=== PATIENT | female | born 1945 | race Caucasian/White ===

== ENCOUNTER → 2016-12-02 | Day surgery (SDC) | payer MEDICARE, BC ==
[~2016-12-02] MED LIST: ACETAMINOPHEN 325 MG TAB ONE; DEXAMETHASONE SOD PHOS 4 MG/ML VIAL ONE; EPINEPHrine HCL (1:1000) 1 MG/ML VIAL ONE; LACTATED RINGER'S 1000 ML INJ 1,000 ML ONE; MIDAZOLAM HCL 2 MG/2 ML VIAL ONE; MOXIFLOXACIN 0.5% OPHT SOLN 3 ML BTL ONE; ONDANSETRON HCL 4 MG/2 ML VIAL IV PUSH ONE; PHENYLEPHRINE HCL 10% OPTH SOLN 5 ML BTL ONE; PROPOFOL 200 MG/20 ML AMP IV ONE; SODIUM CHLORIDE 0.9% INJ 10 ML ONE; TETRACAINE 0.5% OPTH SOLN 4 ML BTL ONE; TOBRAMYCIN/DEXAMETHASONE OPTH OINT 3.5 GM TUBE ONE; TRIAMCINOLONE ACETONIDE 40 MG/ML VIAL ONE; ceFAZolin INJ 1,000 MG VIAL ONE; prednisoLONE ACETATE 1% OPHT SUSP 5 ML BTL ONE
--- NOTE | 2016-12-05 13:30 | MP ---
cc: NORMAN SNYDER MD DATE OF SURGERY 12/04/2016 POSTOPERATIVE DIAGNOSIS Vitreous hemorrhage, proliferative diabetic retinopathy right eye. PROCEDURE Pars vitrectomy, endolaser, intravitreal Kenalog right eye. COMPLICATIONS None BLOOD LOSS Less than [address] Haskins, general INDICATIONS FOR PROCEDURE This is a delightful patient who developed a non-clearing vitreous hemorrhage with proliferative diabetic retinopathy in her right eye. The patient elected for surgical correction. PROCEDURE NOTE After informed consent was obtained, the patient brought to the operating room and general anesthesia was established. The right eye was prepped and draped in a sterile fashion with Betadine in the conjunctival fornix. A three port pars vitrectomy was established with self-retaining infusion cannula. The core vitreous was evacuated along with non-clearing vitreous hemorrhage. Endolaser was applied in PRP fashion. Scleral depressed examination revealed no retinal holes, tears or detachments. Intravitreal Kenalog was instilled. Trocars were removed and sclerotomies closed. Subconjunctival injection of Ancef and dexamethasone were given. The eye was patched with Tobramycin ointment. The patient was brought to recovery room in stable condition and continued followup with [facility] for her postoperative care. MD DARCY Manjarrez/KAVIN /5:56 PM /1:26 PM
== END | disposition home or self-care (01) ==
LOC: ESDC 08:00
PROVIDERS: ATTEND Ophthalmology
DX: H43.11 Vitreous hemorrhage, right eye (principal); E11.3591 Type 2 diabetes mellitus with proliferative diabetic retinopathy without macular edema, right eye; Z79.4 Long term (current) use of insulin
CPT/HCPCS: 00145; 67039; 82948; J0171; J0690; J1100; J2250; J2405; J3010; J3301; J7120

== ENCOUNTER 2018-07-20 13:08 | Inpatient (IN) ==
[2018-07-20] MEDS ORDERED: Pantoprazole Inj 80 MG in Sodium Chlor 0.9% Inj 100 ML IV.CONT SCH (14:00)
[2018-07-20 14:56] LABS: Baso # (Auto) 0.1 th/mm3 (0.0-0.2); Baso % (Auto) 2.6 % (0.0-2.0); Eos # (Auto) 0.1 th/mm3 (0.0-0.4); Eos % (Auto) 1.8 % (0.0-4.0); Lymph # (Auto) 1.1 th/mm3 (1.0-4.8); Lymph % (Auto) 22.4 % (9.0-44.0); Mean Corpuscular Hemoglobin 26.1 pg (27.0-34.0); Mean Corpuscular Volume 81.6 fL (80.0-100.0); Mean Platelet Volume 7.5 fL (7.0-11.0); Mono # (Auto) 0.6 th/mm3 (0.0-0.9); Neut % (Auto) 60.2 % (16.0-70.0); Platelet Count 270 th/mm3 (150-450); Red Blood Count 2.51 mil/mm3 (4.00-5.30); Red Cell Distribution Width 14.4 % (11.6-17.2)
[2018-07-20 15:02] LABS: Hematocrit 20.5 % (35.0-46.0); Hemoglobin 6.5 gm/dL (11.6-15.3)
[2018-07-20 15:16] LABS: Alanine Aminotransferase 88 U/L (10-53); Albumin 3.3 g/dL (3.4-5.0); Anion Gap 6 meq/L (5-15); Aspartate Aminotransferase 52 U/L (15-37); Blood Urea Nitrogen 34 mg/dL (7-18); Calcium 8.8 mg/dL (8.5-10.1); Carbon Dioxide 25.9 meq/L (21.0-32.0); Chloride 99 meq/L (98-107); Glomerular Filtration Rate 38 mL/min (>89); Glucose,Random 207 mg/dL (74-106); Magnesium 2.2 mg/dL (1.5-2.5); Potassium 4.9 meq/L (3.5-5.1); Sodium 131 meq/L (136-145)
[2018-07-20 15:17] LABS: Alkaline Phosphatase 217 U/L (45-117); Total Protein 7.3 g/dL (6.4-8.2)
[2018-07-20 15:18] LABS: Activated Partial Thrombo Time 32.1 sec (24.3-30.1); INR 1.1 Ratio; Prothrombin Time 11.6 sec (9.8-11.6)
--- NOTE | 2018-07-20 15:18 | ED ---
HPI General Chief complaint: GI Bleed Stated complaint: medical sent by doctor Time Seen by Provider: 07/20/18 13:44 Source: patient and family Mode of arrival: ambulatory Limitations: no limitations History of Present Illness HPI Narrative: Patient is a 73-year-old female presenting to the emergency department for evaluation of a GI bleed. Patient states that she is noticed dark, tarry like stools with occasional bright red blood for at least the last week. She reports fatigue, lightheadedness and shortness of breath even with rest. states that she has no activity tolerance. Patient was seen by Dr. Powers, oncologist today and was sent to the emergency room for evaluation of blood transfusion. Patient has no complaints of pain, she does state that it is slow to start her urine stream. She denies any burning. Patient states that Dr. Powers did test her stool in the office this morning and it was positive for blood. Patient is currently on Xarelto secondary to 2 TIAs as well as atrial fibrillation. Her past medical history is also significant for tongue cancer, type 2 diabetes, hypertension, hypothyroidism, A. fib, coronary artery disease. Last colonoscopy was in January 2018 and was negative. MD complaint: Reports melena and blood streaked stool Onset (ago): week(s) (1) Context: Reports anticoagulant use Associated symptoms: Reports malaise, shortness of breath, weakness and other ( lightheadedness) Treatments Prior to Arrival: Reports none Related Data Home Medications Medication Instructions Recorded Confirmed aspirin 81 mg PO DAILY 07/20/18 07/20/18 hydralazine 25 mg PO BID 07/20/18 07/20/18 insulin glargine [Lantus U-100 10 unit SUBCUT DAILY 07/20/18 07/20/18 Insulin] insulin lispro [Humalog U-100 1 sliding scale dose SUBCUT UD 07/20/18 07/20/18 Insulin] irbesartan 150 mg PO DAILY 07/20/18 07/20/18 levothyroxine 75 mcg PO DAILY 07/20/18 07/20/18 metoprolol tartrate 25 mg PO HS 07/20/18 07/20/18 rivaroxaban [Xarelto] 15 mg PO DAILY 07/20/18 07/20/18 timolol 1 drp OPHTHALMIC (EYE) BID 07/20/18 07/20/18 Allergies Allergy/AdvReac Type Severity Reaction Status Date / Time amlodipine Allergy Unknown Ankle Verified 07/20/18 14:15 swelling morphine Allergy Unknown Vomiting Verified 07/20/18 14:15 Sulfa (Sulfonamide Allergy Unknown Stomach Verified 07/20/18 14:15 Antibiotics) upset digoxin Allergy Bradycardia Verified 07/20/18 14:19 dronedarone [From Multaq] Allergy Weakness Verified 07/20/18 14:19 furosemide [From Lasix] Allergy Weakness Verified 07/20/18 14:19 Iodinated Contrast- Oral and Allergy Itching Verified 07/20/18 14:19 IV Dye [Contrast] levofloxacin Allergy Joint Pain Verified 07/20/18 14:19 ciprofloxacin [From Cipro] AdvReac Nausea Verified 07/20/18 14:19 Review of Systems ROS: all other systems reviewed are negative [facility] Medical History Medical History A-fib (Acute) Anemia (Acute) CAD (coronary artery disease) (Acute) Diabetes (Acute) Glaucoma (Acute) HTN (hypertension) (Acute) Hyponatremia (Acute) Hypothyroid (Acute) Renal failure (Acute) Restless leg syndrome (Acute) Squamous cell carcinoma of tongue (Acute) TIA (transient ischemic attack) (Acute) Surgical History Surgical History S/P ablation of atrial fibrillation (Acute) Social History Social History Substance History: No History of Abuse Second Hand Smoke Exposure: No Smoking Status: Former smoker How Often Do You Have a Drink Containing Alcohol: Never Recent Travel in [facility] within the Last 8 Weeks: No Recent Out of Country Travel within the Last 8 Weeks: No Immunization History Tetanus Immunization: <5 Years Exam Narrative Exam Narrative: GENERAL: Thin, well-developed, alert elderly female. Presenting in no acute distress. SKIN: Focused skin assessment warm/dry. Pale. HEAD: Atraumatic. Normocephalic. EYES: Pupils equal and round. No scleral icterus. No injection or drainage. Conjunctival pallor ENT: No nasal bleeding or discharge. Mucous membranes pink and moist. NECK: Trachea midline. No JVD. CARDIOVASCULAR: Regular rate and rhythm. 3/6 systolic murmur appreciated. RESPIRATORY: No accessory muscle use. Clear to auscultation. Breath sounds equal bilaterally. GASTROINTESTINAL: Abdomen soft, non-tender, nondistended. Hepatic and splenic margins not palpable. MUSCULOSKELETAL: No obvious deformities. No clubbing. No cyanosis. No edema. NEUROLOGICAL: Awake and alert. No obvious cranial nerve deficits. Motor grossly within normal limits. Normal speech. PSYCHIATRIC: Appropriate mood and affect; insight and judgment normal. Course Initial Documented Vital Signs Temperature 97.9 F 07/20/18 13:34 Pulse Rate 67 07/20/18 13:34 Respiratory Rate 13 07/20/18 13:34 Blood Pressure 202/79 H 07/20/18 13:34 Pulse Oximetry 100 07/20/18 13:34 Last Documented Vital Signs Temperature 97.9 F 07/20/18 13:34 Pulse Rate 64 07/20/18 13:57 Respiratory Rate 14 07/20/18 13:57 Blood Pressure 172/75 H 07/20/18 13:57 Pulse Oximetry 100 07/20/18 14:00 Medical Decision Making RONN Attestation RONN supervised visit: Yes Attestation: I, Dr. Begum, have reviewed the advance practice practitioner's documentation and am in agreement, met with the patient face to face, made the diagnosis, and the medical decision making was done by me. *My assessment and Findings: Patient is a 73-year-old female with symptomatic anemia. She does have a hemoglobin of 6.5. She requires admission to the hospital as well as blood transfusion which has been ordered. MDM Narrative Medical decision making narrative: Patient presented after being evaluated by Dr. Powers this morning in the office. Patient is hypertensive on arrival, she reports compliance with her blood pressure medication. She believes she has whitecoat syndrome. Medical records reviewed, plan of care is to hold Xarelto, patient will need IV iron and possible lower endoscopy per Dr. Powers's notes. On 07/15/18 her hemoglobin was 7.7/24. Patient was placed on compliance monitor , continuous pulse oximetry. IV access is established and patient's is at bedside. Patient was typed and crossmatched for 2 units of packed red blood cells. Discussed findings with Dr. Powers. He recommended consulting Cardiology to assess if patient can be taken off of Xarelto, she is currently followed by Dr. Klein. Additionally recommended GI consult for lower endoscopy. [facility] paged for admit. Pt reassessed and resting comfortably. Pt and advised on findings and plan of care. Dr. Lee accepted admit. Medical Screen Exam Complete: Yes Emergency Medical Condition: Yes Differential Diagnosis Differential Diagnosis: GI bleed versus anemia versus metabolic abnormality versus cardiac arrhythmia versus other Medical Records Medical records reviewed: Yes I reviewed the patient's medical records. Lab Data Lab results reviewed: Yes I reviewed the patient's lab results. Result diagrams: 07/20/18 14:20 07/20/18 14:20 Lab Results 07/20/18 07/20/18 07/20/18 Range/Units 14:20 14:20 14:20 WBC 5.0 (4.0-11.0) th/mm3 RBC 2.51 L (4.00-5.30) mil/mm3 Hgb 6.5 L* (11.6-15.3) gm/dL Hct 20.5 L* (35.0-46.0) % MCV 81.6 (80.0-100.0) fL MCH 26.1 L (27.0-34.0) pg MCHC 32.0 (32.0-36.0) % RDW 14.4 (11.6-17.2) % Plt Count 270 (150-450) th/mm3 MPV 7.5 (7.0-11.0) fL Prelim Diff (Auto) Slide review pending Neut % (Auto) 60.2 (16.0-70.0) % Lymph % (Auto) 22.4 (9.0-44.0) % [place] % (Auto) 13.0 H (0.0-8.0) % Eos % (Auto) 1.8 (0.0-4.0) % Baso % (Auto) 2.6 H (0.0-2.0) % Neut # (Auto) 3.0 (1.8-7.7) th/mm3 Lymph # (Auto) 1.1 (1.0-4.8) th/mm3 [place] # (Auto) 0.6 (0.0-0.9) th/mm3 Eos # (Auto) 0.1 (0.0-0.4) th/mm3 Baso # (Auto) 0.1 (0.0-0.2) th/mm3 WBC Differential . Diff Scan Auto diff confirmed Differential Comment . Platelet Estimate Normal (Normal) Platelet Morphology Normal (Normal) Ovalocytes 1+ H (None) Acanthocytes (Spur) 1+ H (None) Keratocytes Occ H (None) PT 11.6 (9.8-11.6) sec INR 1.1 Ratio APTT 32.1 H (24.3-30.1) sec Sodium 131 L (136-145) meq/L Potassium 4.9 (3.5-5.1) meq/L Chloride 99 (98-107) meq/L Carbon Dioxide 25.9 (21.0-32.0) meq/L Anion Gap 6 (5-15) meq/L BUN 34 H (7-18) mg/dL Creatinine 1.35 H (0.50-1.00) mg/dL Estimated GFR 38 L (>89) mL/min Random Glucose 207 H (74-106) mg/dL Calcium 8.8 (8.5-10.1) mg/dL Magnesium 2.2 (1.5-2.5) mg/dL Iron (50-170) mcg/dL TIBC (250-450) mcg/dL % Saturation (20-50) % Total Bilirubin 0.5 (0.2-1.0) mg/dL AST 52 H (15-37) U/L ALT 88 H (10-53) U/L Alkaline Phosphatase 217 H (45-117) U/L Total Protein 7.3 (6.4-8.2) g/dL Albumin 3.3 L (3.4-5.0) g/dL Urine Color (Yellw/Straw) Urine Clarity (Clear) Urine pH (5.0-8.5) Ur Specific [place] (1.002-1.035) Urine Protein (Neg-Trace) mg/dL Urine Glucose (UA) (Negative) mg/dL Urine Ketones (Negative) mg/dL Urine Occult Blood (Negative) Urine Nitrate (Negative) Urine Bilirubin (Negative) Urine Urobilinogen (Less than 2) mg/dL Ur Leukocyte Esterase (Negative) Urine RBC (0-3) /hpf Urine WBC (0-5) /hpf Ur Squamous Epith Cells (0-5) /hpf Urine Mucus (Occasional) /lpf Micro UA Comment Ur Microscopic Review Urine Culture Comments Blood Type Blood Type Recheck Antibody Screen MTS Gel Crossmatch 07/20/18 07/20/18 07/20/18 Range/Units 14:20 14:20 14:23 WBC (4.0-11.0) th/mm3 RBC (4.00-5.30) mil/mm3 Hgb (11.6-15.3) gm/dL Hct (35.0-46.0) % MCV (80.0-100.0) fL MCH (27.0-34.0) pg MCHC (32.0-36.0) % RDW (11.6-17.2) % Plt Count (150-450) th/mm3 MPV (7.0-11.0) fL Prelim Diff (Auto) Neut % (Auto) (16.0-70.0) % Lymph % (Auto) (9.0-44.0) % [place] % (Auto) (0.0-8.0) % Eos % (Auto) (0.0-4.0) % Baso % (Auto) (0.0-2.0) % Neut # (Auto) (1.8-7.7) th/mm3 Lymph # (Auto) (1.0-4.8) th/mm3 [place] # (Auto) (0.0-0.9) th/mm3 Eos # (Auto) (0.0-0.4) th/mm3 Baso # (Auto) (0.0-0.2) th/mm3 WBC Differential Diff Scan Differential Comment Platelet Estimate (Normal) Platelet Morphology (Normal) Ovalocytes (None) Acanthocytes (Spur) (None) Keratocytes (None) PT (9.8-11.6) sec INR Ratio APTT (24.3-30.1) sec Sodium (136-145) meq/L Potassium (3.5-5.1) meq/L Chloride (98-107) meq/L Carbon Dioxide (21.0-32.0) meq/L Anion Gap (5-15) meq/L BUN (7-18) mg/dL Creatinine (0.50-1.00) mg/dL Estimated GFR (>89) mL/min Random Glucose (74-106) mg/dL Calcium (8.5-10.1) mg/dL Magnesium (1.5-2.5) mg/dL Iron 16 L (50-170) mcg/dL TIBC 463 H (250-450) mcg/dL % Saturation 3.5 L (20-50) % Total Bilirubin (0.2-1.0) mg/dL AST (15-37) U/L ALT (10-53) U/L Alkaline Phosphatase (45-117) U/L Total Protein (6.4-8.2) g/dL Albumin (3.4-5.0) g/dL Urine Color Straw (Yellw/Straw) Urine Clarity Clear (Clear) Urine pH 5.0 (5.0-8.5) Ur Specific [place] 1.008 (1.002-1.035) Urine Protein Negative (Neg-Trace) mg/dL Urine Glucose (UA) Negative (Negative) mg/dL Urine Ketones Negative (Negative) mg/dL Urine Occult Blood Negative (Negative) Urine Nitrate Negative (Negative) Urine Bilirubin Negative (Negative) Urine Urobilinogen Less than 2 (Less than 2) mg/dL Ur Leukocyte Esterase Negative (Negative) Urine RBC 1 (0-3) /hpf Urine WBC Less than 1 (0-5) /hpf Ur Squamous Epith Cells <1 (0-5) /hpf Urine Mucus Few H (Occasional) /lpf Micro UA Comment Culture not ind Ur Microscopic Review Not Reportable Urine Culture Comments Culture not ind Blood Type B Positive Blood Type Recheck Required Antibody Screen Negative MTS Gel Crossmatch See Detail Discharge Plan Discharge Disposition Patient Disposition: 30 Still Patient Discharge Condition Condition: Stable Discharge Details Diagnosis: Acute GI bleeding, Anticoagulant long-term use, Symptomatic anemia Physicians Team ED Provider: Cary Begum ED Midlevel Provider: Gloria Perez Primary Care Provider: Esther Smith Rxs /Orders / Referrals /Forms Prescriptions: No Action insulin glargine [Lantus U-100 Insulin] 100 unit/mL Solution 10 unit SUBCUT DAILY RF: 0 hydralazine 25 mg Tablet 25 mg PO BID RF: 0 timolol 0.25 % Drops 1 drp OPHTHALMIC (EYE) BID RF: 0 aspirin 81 mg Tablet,Chewable 81 mg PO DAILY RF: 0 irbesartan 150 mg Tablet 150 mg PO DAILY RF: 0 insulin lispro [Humalog U-100 Insulin] 100 unit/mL Solution 1 sliding scale dose SUBCUT UD RF: 0 metoprolol tartrate 25 mg Tablet 25 mg PO HS RF: 0 levothyroxine 75 mcg Capsule 75 mcg PO DAILY RF: 0 rivaroxaban [Xarelto] 15 mg Tablet 15 mg PO DAILY RF: 0 Status ED Status: Admitted Patient
[2018-07-20 15:20] LABS: Bilirubin,Urine Negative (Negative); Clarity,Urine Clear (Clear); Color,Urine Straw (Yellw/Straw); Glucose,Urine (UA) Negative (Negative); Leukocyte Esterase,Urine Negative (Negative); Mucus,Urine Few /lpf (Occasional); Nitrite,Urine Negative (Negative); Specific Gravity,Urine 1.008 (1.002-1.035); Squamous Epithelial Cell,Urine <1 /hpf (0-5)
[2018-07-20 15:29] LABS: Acanthocytes 1+; Ovalocytes 1+; Platelet Estimate Normal (Normal); Platelet Morphology Normal (Normal)
[2018-07-20 15:48] LABS: % Iron Saturation 3.5 % (20-50)
--- NOTE | 2018-07-20 17:02 | P.HPIM ---
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 She presents to our emergency department today with complaints of fatigue and black tarry stools that have been ongoing for the past 1 week. The patient was seen by her oncologist Dr. Powers and sent to our emergency department for evaluation due to her black stools. As per documentation the patient had a colonoscopy in January 2018 which did not show any significant findings. She denies any fevers or chills, no chest pain, no diarrhea. Inpatient Certification: I certify that the inpatient services were ordered in accordance with Medicare regulations governing the order. This includes certification that hospital inpatient services are reasonable and necessary and in the case of services not specified as inpatient-only under 42 CFR 419.22(n), that they are appropriately provided as inpatient services in accordance to with the 2-midnight benchmark under 43 CFR 412.3(e) Estimated Total Length of Stay (Days): 3 Plans for Post Hospital Care: Home Review of Systems All other systems reviewed negative except as stated in HPI PMFSH - History History Provided By: Patient - Medical History Medical History: Medical History (Last Reviewed 07/20/18 @ 15:15 by GÓMEZ Sharma) A-fib Anemia CAD (coronary artery disease) Diabetes Glaucoma HTN (hypertension) Hyponatremia Hypothyroid Renal failure Restless leg syndrome Squamous cell carcinoma of tongue TIA (transient ischemic attack) - Surgical History Surgical History: Surgical History (Last Reviewed 07/20/18 @ 15:15 by GÓMEZ Sharma) S/P ablation of atrial fibrillation - Tobacco History Second Hand Smoke Exposure: No Tobacco Use In Past 30 Days: No Smoking Status: Former smoker - Alcohol History How Often Do You Have a Drink Containing Alcohol: Never - Substance Use History Substance History: No History of Abuse - Travel History Recent Travel in the [place] Within the Last 8 Weeks: No Recent Travel Out of the Country Within the Last 8 Weeks: No - Immunization History Tetanus Immunization: <5 Years Medications and Allergies Active Medications: Active Medications Pantoprazole Sodium 80 mg/ (Sodium Chloride) 100 mls @ 10 mls/hr IV.CONT CONT MARCIA Sodium Chloride (Ns Inj) 1,000 mls @ 125 mls/hr IV.CONT .Q8H MARCIA Ondansetron HCl (Zofran Inj) 4 mg IV.PUSH Q6H PRN PRN Reason: NAUSEA OR VOMITING Pantoprazole Sodium (Protonix Inj) 80 mg IV.PUSH ONCE ONE Stop: 07/20/18 16:49 Sodium Chloride (Ns Flush) 2 ml IV.FLUSH PRN PRN PRN Reason: FLUSH AFTER USING IV ACCESS Sodium Chloride (Ns Flush) 2 ml IV.FLUSH BID MARCIA Sodium Chloride (Ns Flush) 2 ml IV.FLUSH PRN PRN PRN Reason: FLUSH AFTER USING IV ACCESS Allergies Allergy/AdvReac Type Severity Reaction Status Date / Time amlodipine Allergy Unknown Ankle Verified 07/20/18 14:15 swelling morphine Allergy Unknown Vomiting Verified 07/20/18 14:15 Sulfa (Sulfonamide Allergy Unknown Stomach Verified 07/20/18 14:15 Antibiotics) upset digoxin Allergy Bradycardia Verified 07/20/18 14:19 dronedarone [From Multaq] Allergy Weakness Verified 07/20/18 14:19 furosemide [From Lasix] Allergy Weakness Verified 07/20/18 14:19 Iodinated Contrast- Oral and Allergy Itching Verified 07/20/18 14:19 IV Dye [Contrast] levofloxacin Allergy Joint Pain Verified 07/20/18 14:19 ciprofloxacin [From Cipro] AdvReac Nausea Verified 07/20/18 14:19 Home Medications Medication Instructions Recorded Confirmed Type aspirin 81 mg PO DAILY 07/20/18 07/20/18 History hydralazine 25 mg PO BID 07/20/18 07/20/18 History insulin glargine [Lantus U-100 10 unit SUBCUT DAILY 07/20/18 07/20/18 History Insulin] insulin lispro [Humalog U-100 1 sliding scale dose SUBCUT UD 07/20/18 07/20/18 History Insulin] irbesartan 150 mg PO DAILY 07/20/18 07/20/18 History levothyroxine 75 mcg PO DAILY 07/20/18 07/20/18 History metoprolol tartrate 25 mg PO HS 07/20/18 07/20/18 History rivaroxaban [Xarelto] 15 mg PO DAILY 07/20/18 07/20/18 History timolol 1 drp OPHTHALMIC (EYE) BID 07/20/18 07/20/18 History Exam Vital signs: Vital Signs 07/20/18 13:34 07/20/18 13:57 07/20/18 14:00 Temperature 97.9 F Pulse Rate 67 64 Respiratory Rate 13 14 Blood Pressure 202/79 H 172/75 H Pulse Oximetry 100 100 100 Intake & Output 07/19/18 07/20/18 07/20/18 18:59 06:59 18:59 Weight 57.606 kg Narrative: General patient appears pale on physical examination, she complains of fatigue otherwise no other specific complaints. HEENT extraocular movements are intact, dry oral pharyngeal mucosa Cardiovascular S1-S2 audible, RRR, no murmurs rubs or gallops Respiratory clear to auscultation bilaterally Abdomen soft, nontender, nondistended, normal bowel sounds Extremities no edema 2+ distal pulses in bilateral upper and lower extremities Neuro patient moves all 4 extremities sensation is intact bilaterally Results - Labs CBC & Chem 7: 07/20/18 14:20 07/20/18 14:20 Labs: Short CBC 07/20/18 Range/Units 14:20 WBC 5.0 (4.0-11.0) th/mm3 Hgb 6.5 L* (11.6-15.3) gm/dL Hct 20.5 L* (35.0-46.0) % Plt Count 270 (150-450) th/mm3 BMP 07/20/18 14:20 Sodium 131 L Potassium 4.9 Chloride 99 Carbon Dioxide 25.9 BUN 34 H Creatinine 1.35 H Calcium 8.8 Liver Function 07/20/18 Range/Units 14:20 Total Bilirubin 0.5 (0.2-1.0) mg/dL AST 52 H (15-37) U/L ALT 88 H (10-53) U/L Alkaline Phosphatase 217 H (45-117) U/L Albumin 3.3 L (3.4-5.0) g/dL Urine 07/20/18 Range/Units 14:23 Urine Color Straw (Yellw/Straw) Urine Clarity Clear (Clear) Urine pH 5.0 (5.0-8.5) Ur Specific [place] 1.008 (1.002-1.035) Urine Protein Negative (Neg-Trace) mg/dL Urine Glucose (UA) Negative (Negative) mg/dL Caprini VTE Risk Assessment Caprini VTE Risk Assessment: Moderate/High Risk (score >= 2) Caprini Risk Assessment Model: Point Value = 1 Point Value = 2 Point Value = 3 Point Value = 5 Age 41-60 Minor surgery BMI > 25 kg/m2 Swollen legs Varicose veins or History of unexplained or recurrent spontaneous Oral contraceptives or hormone replacement Sepsis (< 1 month) Serious lung disease, including pneumonia (< 1 month) Abnormal pulmonary function Acute myocardial infarction Congestive heart failure (< 1 month) History of inflammatory bowel disease Medical patient at bed rest Age 61-74 Arthroscopic surgery Major open surgery (> 45 min) Laparoscopic surgery (> 45 min) Malignancy Confined to bed (> 72 hours) Immobilizing plaster cast Central venous access Age >= 75 History of VTE Family history of VTE Factor V Leiden Prothrombin [id number] Lupus anticoagulant Anticardiolipin antibodies Elevated serum homocysteine Heparin-induced thrombocytopenia Other congenital or acquired thrombophilia Stroke (< 1 month) Elective arthroplasty Hip, pelvis, or leg fracture Acute spinal cord injury (< 1 month) Prophylaxis Regimen: Total Risk Factor Score Risk Level Prophylaxis Regimen 0-1 Low Early ambulation 2 Moderate Order ONE of the following: *Sequential Compression Device (SCD) *Heparin 5000 units SQ BID 3-4 Higher Order ONE of the following medications: *Heparin 5000 units SQ TID *Enoxaparin/Lovenox 40 mg SQ daily (WT < 150 kg, CrCl > 30 mL/min) *Enoxaparin/Lovenox 30 mg SQ daily (WT < 150 kg, CrCl > 10-29 mL/min) *Enoxaparin/Lovenox 30 mg SQ BID (WT < 150 kg, CrCl > 30 mL/min) AND/OR *Sequential Compression Device (SCD) 5 or more Highest Order ONE of the following medications: *Heparin 5000 units SQ TID (Preferred with Epidurals) *Enoxaparin/Lovenox 40 mg SQ daily (WT < 150 kg, CrCl > 30 mL/min) *Enoxaparin/Lovenox 30 mg SQ daily (WT < 150 kg, CrCl > 10-29 mL/min) *Enoxaparin/Lovenox 30 mg SQ BID (WT < 150 kg, CrCl > 30 mL/min) AND *Sequential Compression Device (SCD) Assessment and Plan - Plan This patient is a 73-year-old female with a diagnosis of atrial fibrillation on Xarelto, status post ablation x2, coronary artery disease status post stent placement, history of TIA, 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 She presents to our emergency department today with complaints of fatigue and black tarry stools that have been ongoing for the past 1 week. 1. Acute symptomatically anemia likely secondary to acute GI bleed 2. Acute kidney injury secondary to #1 The patient complains of black stools with streaks of red blood that have been ongoing for the past week. She was feeling fatigued and appears pale on physical examination. Patient has been typed and crossed and 2 units of PRBCs were ordered as per the emergency department. We will continue to monitor her hemoglobin closely and transfuse as needed. She is currently on a Protonix drip and IV fluids. Gastroenterology has been consulted and I will follow up with recommendations. Xarelto has been held due to the active GI bleed. The patient's heart rate is currently in the 70s and systolic blood pressures in the 150s. We will continue to monitor the patient on telemetry. Patient also has an elevated serum creatinine likely prerenal secondary to the GI bleed. We will continue IV fluids and follow-up in a.m. renal panel. 3. Atrial fibrillation Patient has a history of TIA and is status post ablation x2. She takes metoprolol at home as well as Xarelto. Xarelto and aspirin has been held due to the active GI bleed. Metoprolol will also be held as the patient is actively bleeding. If the patient's heart rate does increase significantly in the patient's blood pressure stable will consider starting back a beta-glendy. It appears that the patient is currently in normal sinus rhythm. 4. Diabetes mellitus type 2 The patient will be kept on a low-dose insulin sliding scale for now as she is currently n.p.o. Her insulin regimen will be adjusted as needed. 5. Hypothyroidism Continue levothyroxine. 6. Hypertension The patient's blood pressures will be held as she is currently having an active GI bleed. If there is significant elevation in her blood pressure we will adjust her blood pressure meds as needed. No pharmacotherapy for DVT prophylaxis the patient is currently having an active GI bleed.
[2018-07-20 17:35] LABS: Hematocrit 17.4 % (35.0-46.0); Hemoglobin 5.8 gm/dL (11.6-15.3)
[2018-07-20] MEDS ORDERED: Pantoprazole Inj 40 MG Vial IV.PUSH ONE (18:00)
[2018-07-20] MEDS: Sod Chloride 0.9% Inj 1,000 ML IV.CONT SCH (18:38)
[2018-07-21] MEDS ORDERED: Sodium Chlor 0.9% Inj 500 ML IV.SIG SCH (04:00)
[2018-07-21] MEDS: Levothyroxine 75 MCG Tablet PO SCH (06:28)
[2018-07-21 08:32] LABS: Hematocrit 26.7 % (35.0-46.0); Hemoglobin 8.7 gm/dL (11.6-15.3)
[2018-07-21 09:06] LABS: Calcium 8.6 mg/dL (8.5-10.1); Carbon Dioxide 22.5 meq/L (21.0-32.0); Potassium 4.3 meq/L (3.5-5.1)
[2018-07-21] MEDS: Sod Chloride 0.9% Inj 1,000 ML IV.CONT SCH ×3 (09:09→18:45)
--- NOTE | 2018-07-21 09:36 | MB ---
cc: Kevon Powers MD DATE: 07/21/2018 REASON FOR CONSULTATION: History of iron deficiency anemia with acute gastrointestinal bleeding. PATIENT PROFILE: The patient is a 73-year-old female who is . She was born in [place], [place]. She has a son and daughter. She has lived in [place] for 7 years. She has had no alcohol since 02/2018; and, prior to this, she had 2 or 3 drinks a day or less. She stopped smoking 45 years ago and smoked a pack of cigarettes per day for 8 years. She enjoys shopping, walking, and spending time with her grandchildren. HISTORY OF PRESENT ILLNESS: The patient is a 73-year-old female who was referred to me because of iron deficiency anemia. At the time of the visit, she had multiple comorbidities. I originally saw her on 07/08/2018. 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 The procedure was accompanied by a tracheotomy and she required NG tube feedings and a 25-pound weight loss. She has had no evidence of local reoccurrence and she was told that she had a 50% chance of developing recurrent disease. Radiation was recommended, but she declined. Other comorbidities include a cardiac ablation for atrial fibrillation on 2 occasions. She has coronary stent. She has diabetes and mild renal failure. At one point, she had abnormal liver function tests and also had transient hyponatremia with a sodium as low as 119. When seen in the office initially, she had a stool which was heme test negative. She had a history of a colonoscopy by Dr. Kang this year. She had an upper endoscopy approximately 9 years ago. At the time of her visit dated 07/08/2018, iron studies were ordered as well as a CBC and a CMP. The patient was found on 07/15/2018 to have a hemoglobin of 7.7, hematocrit 24, white count 4000, iron 21, TIBC 395, and saturation 5% with a ferritin of 13. A serum protein electrophoresis showed no monoclonal spike. She returned yesterday to see me in the clinic. She was weak, dizzy, did not feel well, and appeared sallow. She was having stools, which ranged from dark brown to black to frankly maroon color. When I did a rectal exam, the stool was maroon and markedly heme positive indicative of an acute GI bleed. I referred her to the emergency room and she has been admitted to the hospital. The original plan was to give her IV iron as an outpatient. When seen in the office, it was obvious that she required hospitalization. On the day of admission, 07/20/2018, her hemoglobin dropped to 5.8, hematocrit 17.4, white count 5000, platelets 270,000 with a normal differential. CMP showed a mild degree of renal failure with a creatinine of 1.35, BUN 34, and estimated GFR of 38. Glucose was elevated at 336, iron 16, TIBC 463, saturation 3.5%. AST 52, ALT 88, and alkaline phosphatase is 217. PAST MEDICAL AND SURGICAL HISTORY: 1. Cardiac ablation x2 by Dr. Klein for atrial fibrillation, most recent 2013. 2. Coronary stent 2004, surgery performed in [place]. The patient states that there was a 40% blockage and placement of the stent was controversial. 3. Repair of retinal hemorrhage, right eye, 2016. 4. Surgical excision of squamous cell carcinoma lateral right tongue, 02/11/2018, performed by Dr. Gerardo Holloway at [facility]. Postop radiation recommended and patient declined. PAST MEDICAL HISTORY: 1. Recent diagnosis of iron deficiency anemia. 2. Atrial fibrillation. 3. Mild coronary artery disease. 4. Hypotension. 5. Episode of hyponatremia with a sodium of 119 in 06/2016 following episode of nausea and vomiting secondary to Levaquin. 6. Renal failure. 7. Restless legs syndrome. 8. Squamous cell carcinoma, right lateral tongue. 9. Previous history of 2 TIAs, last one 2015. 10. Type 2 diabetes. FAMILY HISTORY: Mother at age 96. Father at age 56. She has 4 brothers, 1 alive, 3 . Two sisters, 2 alive, and a son who is alive and a daughter who is alive. No family history relevant to current problems. ALLERGIES: LEVAQUIN RESULTED IN NAUSEA, VOMITING, AND DIARRHEA. THERE IS ALSO ALLERGY TO MULTAQ. MEDICATIONS PRIOR TO ADMISSION: 1. Xarelto 15 mg a day. 2. Atenolol. 3. Metoprolol 25 mg a day. 4. Levothyroxine 75 mcg a day. 5. Lantus 10 units at bedtime. 6. Valsartan 150 mg a day. 7. Hydralazine 25 b.i.d. 8. Humalog. 9. Aspirin 81 mg a day. REVIEW OF SYSTEMS: CONSTITUTIONAL: Notable for 25-pound weight loss following surgery to right lateral tongue. No further weight loss. No headaches. No neck pain. She has glasses. Oral cavity not normal. Tongue feels odd from her surgery. No bruising. No breast masses. Recent shortness of breath without chest pain. Current gastrointestinal hemorrhage. No dysuria or hematuria. MUSCULOSKELETAL: She has a ruptured biceps tendon, possibly related to previous Levaquin. She has a graft, left wrist, and skin removed from left thigh. Generalized weakness. Has difficulty sleeping with restless leg syndrome. PHYSICAL EXAMINATION: GENERAL: Patient is pale, not in any acute distress. VITAL SIGNS: Blood pressure 160/70, respiratory rate is 18, temperature 98.2, O2 saturation 92%, and pulse 80. HEENT: Head is normocephalic. Sclerae and conjunctivae normal. Oropharynx: There is evidence of surgery, right lateral tongue with a graft. NECK: There is no cervical, supraclavicular, axillary, or inguinal adenopathy. HEART: Regular rate and rhythm. LUNGS: Clear, without rales, wheezes, or rhonchi. ABDOMEN: Soft. No hepatosplenomegaly. No masses or tenderness. EXTREMITIES: No edema. MUSCULOSKELETAL: Some muscle wasting. NEUROLOGIC: No focal weakness. Cognition and affect normal. SKIN: Unremarkable. ASSESSMENT AND PLAN: 1. The patient is a 73-year-old female. She is having a gastrointestinal bleed. She has underlying iron deficiency as well. I recommend transfusing her to at least a hemoglobin of 9. This is a frail woman who has had recurrent atrial fibrillation. I will also make arrangements for IV iron as her iron stores are not adequate. Her anticoagulation needs to be held presently and I would also suggest that her gyn be consulted to determine what will be the minimal anticoagulation that she will require when she has recovered from the current event. GI has been consulted as well and she is scheduled for upper endoscopy. She may need repeat colonoscopy. 2. The patient has a carcinoma of the right lateral tongue. She has no evidence of recurrence and presently she will undergo observation. 3. Chronic renal failure. 4. Uncontrolled diabetes. 5. I am not sure what to make of the elevated alkaline phosphatase, ALT, and AST. This may require further investigation. It is my understanding that she had a PET scan prior to her surgery for her head and neck cancer. I will need to make sure this was in fact accomplished. If this was done within the past 6 months, it would be highly unlikely that she harbors a malignancy given a normal PET scan, a recent colonoscopy, and it is my understanding that she is scheduled for upper endoscopy. For the present time, I believe the goals will be to increase the hemoglobin to 9 or greater and give her IV iron and proceed with the GI workup and hold the anticoagulation. MD MINA Jones/mary , 08:12 AM , 08:31 AM [email or web address]
--- NOTE | 2018-07-21 11:58 | P.CONGI ---
History of Present Illness Consult date: 07/21/18 Consult reason: GI bleed Chief complaint: GI Bleed History of Present Illness: This is a 73-year-old female who presented to the hospital on 07/20/2018 with weakness and fatigue for approximately a week and a half and melena stools for approximately 1 week. Patient notes she does have a history of constipation and does admit to some straining but does not take any usual medications for any bowel regimen. Aggregating factors could be related to p.o. iron supplements. Patient states appetite is good and she denies any current nausea vomiting or dyspepsia. 24 hours ago patient did have fairly large bowel movement which was noted to be more maroon in color but denies any current abdominal pain or cramping. Patient denies any family history of colon cancer and states endoscopy done approximately 9 years ago. Patient notes recent colonoscopy with Dr. Kang in January 2018 which showed large polyp. Current labs show initial hemoglobin on admission 6.5 and then repeated to be 5.8 patient had transfusion. Other labs reviewed was PT/INR 1.1, bilirubin 0.5, AST 52, ALT 88, and alkaline phosphatase 217. Patient has been on Xarelto since 2013 for her atrial fibrillation and denies any previous history of any GI bleeding. Patient notes recent hospital stay at [facility] , was evaluated and found UTI and was also treated for hyponatremia. Gastroenterology was consulted to assist with her current GI symptoms with melena stools and symptomatic anemia as well as develop per plan of care. <Tracie Carmona - Last Filed: 07/21/18 12:04> Review of Systems All other systems reviewed negative except as stated in HPI <Tracie Carmona - Last Filed: 07/21/18 12:04> PMFSH - History History Provided By: Patient - Medical History Medical History: Medical History (Last Reviewed 07/20/18 @ 15:15 by GÓMEZ Sharma) A-fib Anemia CAD (coronary artery disease) Diabetes Glaucoma HTN (hypertension) Hyponatremia Hypothyroid Renal failure Restless leg syndrome Squamous cell carcinoma of tongue TIA (transient ischemic attack) - Surgical History Surgical History: Surgical History (Last Reviewed 07/20/18 @ 15:15 by GÓMEZ Sharma) S/P ablation of atrial fibrillation - Tobacco History Second Hand Smoke Exposure: No Tobacco Use In Past 30 Days: No Smoking Status: Former smoker - Alcohol History How Often Do You Have a Drink Containing Alcohol: Never - Substance Use History Substance History: No History of Abuse - Travel History Recent Travel in the [place] Within the Last 8 Weeks: No Recent Travel Out of the Country Within the Last 8 Weeks: No - Immunization History Tetanus Immunization: <5 Years <Tracie Carmona - Last Filed: 07/21/18 12:04> - Medical History Medical History: Medical History (Last Reviewed 07/20/18 @ 15:15 by GÓMEZ Sharma) A-fib Anemia CAD (coronary artery disease) Diabetes Glaucoma HTN (hypertension) Hyponatremia Hypothyroid Renal failure Restless leg syndrome Squamous cell carcinoma of tongue TIA (transient ischemic attack) - Surgical History Surgical History: Surgical History (Last Reviewed 07/20/18 @ 15:15 by GÓMEZ Sharma) S/P ablation of atrial fibrillation <Olivia Diamond - Last Filed: 07/21/18 20:45> Medications and Allergies Active Medications: Active Medications Dextrose (D50w Vial) 50 ml IV.PUSH UNSCH PRN PRN Reason: PER HYPOGLYCEMIA PROTOCOL Glucagon (Glucagon Inj) 1 mg OTHER PRN PRN PRN Reason: for Hypoglycemia Protocol Pantoprazole Sodium 80 mg/ (Sodium Chloride) 100 mls @ 10 mls/hr IV.CONT CONT MARCIA Sodium Chloride (Ns Inj) 1,000 mls @ 125 mls/hr IV.CONT .Q8H MARCIA Last Admin: 07/21/18 10:56 Dose: 125 mls/hr Lactated Ringer's (Lr 1000 Ml Inj) 1,000 mls @ 30 mls/hr IV.SIG .Q24H MARCIA Stop: 07/22/18 03:14 Sodium Chloride (Ns Inj) 500 mls @ 30 mls/hr IV.SIG .Q10H MARCIA Insulin Aspart (Novolog Insulin Correctional Sugar Inj) 0 unit SQ ACHS MARCIA; Protocol Insulin Aspart (Novolog Inj) 3 units SQ TIDAC MARCIA Insulin Detemir (Levemir Inj) 10 unit SQ HS MARCIA Levothyroxine Sodium (Synthroid) 75 mcg PO DAILY@0600 [facility] Last Admin: 07/21/18 06:28 Dose: 75 mcg Ondansetron HCl (Zofran Inj) 4 mg IV.PUSH Q6H PRN PRN Reason: NAUSEA OR VOMITING Sodium Chloride (Ns Flush) 2 ml IV.FLUSH PRN PRN PRN Reason: FLUSH AFTER USING IV ACCESS Sodium Chloride (Ns Flush) 2 ml IV.FLUSH BID [facility] Last Admin: 07/21/18 10:55 Dose: Not Given Sodium Chloride (Ns Flush) 2 ml IV.FLUSH PRN PRN PRN Reason: FLUSH AFTER USING IV ACCESS <Tracie Carmona M - Last Filed: 07/21/18 12:04> Active Medications: Active Medications Dextrose (D50w Vial) 50 ml IV.PUSH UNSCH PRN PRN Reason: PER HYPOGLYCEMIA PROTOCOL Glucagon (Glucagon Inj) 1 mg OTHER PRN PRN PRN Reason: for Hypoglycemia Protocol Pantoprazole Sodium 80 mg/ (Sodium Chloride) 100 mls @ 10 mls/hr IV.CONT CONT MARCIA Sodium Chloride (Ns Inj) 1,000 mls @ 125 mls/hr IV.CONT .Q8H [facility] Last Admin: 07/21/18 18:45 Dose: 125 mls/hr Lactated Ringer's (Lr 1000 Ml Inj) 1,000 mls @ 30 mls/hr IV.SIG .Q24H MARCIA Stop: 07/22/18 03:14 Sodium Chloride (Ns Inj) 500 mls @ 30 mls/hr IV.SIG .Q10H [facility] Iron Sucrose 200 mg/ Sodium (Chloride) 110 mls @ 110 mls/hr IV.SIG DAILY MARCIA Stop: 07/24/18 09:59 Diltiazem HCl 125 mg/ Sodium (Chloride) 125 mls @ 5 mls/hr IV.CONT TITRATE PRN ; Protocol PRN Reason: Per Protocol Last Admin: 07/21/18 17:54 Dose: 5 mg/hr, 5 mls/hr Insulin Aspart (Novolog Insulin Correctional Sugar Inj) 0 unit SQ ACHS [facility]; Protocol Last Admin: 07/21/18 19:09 Dose: 5 unit Insulin Aspart (Novolog Inj) 3 units SQ TIDAC [facility] Last Admin: 07/21/18 19:09 Dose: 3 units Insulin Detemir (Levemir Inj) 10 unit SQ HS [facility] Levothyroxine Sodium (Synthroid) 75 mcg PO DAILY@0600 [facility] Last Admin: 07/21/18 06:28 Dose: 75 mcg Metoprolol Tartrate (Lopressor) 25 mg PO TID [facility] Last Admin: 07/21/18 13:06 Dose: 25 mg Metoprolol Tartrate (Lopressor Inj) 5 mg IV.PUSH Q5M PRN PRN Reason: Afib Last Admin: 07/21/18 16:53 Dose: 5 mg Ondansetron HCl (Zofran Inj) 4 mg IV.PUSH Q6H PRN PRN Reason: NAUSEA OR VOMITING Sodium Chloride (Ns Flush) 2 ml IV.FLUSH BID [facility] Last Admin: 07/21/18 10:55 Dose: Not Given Sodium Chloride (Ns Flush) 2 ml IV.FLUSH PRN PRN PRN Reason: FLUSH AFTER USING IV ACCESS <Olivia Diamond - Last Filed: 07/21/18 20:45> Allergies Allergy/AdvReac Type Severity Reaction Status Date / Time amlodipine Allergy Unknown Ankle Verified 07/20/18 14:15 swelling morphine Allergy Unknown Vomiting Verified 07/20/18 14:15 Sulfa (Sulfonamide Allergy Unknown Stomach Verified 07/20/18 14:15 Antibiotics) upset digoxin Allergy Bradycardia Verified 07/20/18 14:19 dronedarone [From Multaq] Allergy Weakness Verified 07/20/18 14:19 furosemide [From Lasix] Allergy Weakness Verified 07/20/18 14:19 Iodinated Contrast- Oral and Allergy Itching Verified 07/20/18 14:19 IV Dye [Contrast] levofloxacin Allergy Joint Pain Verified 07/20/18 14:19 ciprofloxacin [From Cipro] AdvReac Nausea Verified 07/20/18 14:19 Home Medications Medication Instructions Recorded Confirmed Type aspirin 81 mg PO DAILY 07/20/18 07/20/18 History hydralazine 25 mg PO BID 07/20/18 07/20/18 History insulin glargine [Lantus U-100 10 unit SUBCUT DAILY 07/20/18 07/20/18 History Insulin] insulin lispro [Humalog U-100 1 sliding scale dose SUBCUT UD 07/20/18 07/20/18 History Insulin] irbesartan 150 mg PO DAILY 07/20/18 07/20/18 History levothyroxine 75 mcg PO DAILY 07/20/18 07/20/18 History metoprolol tartrate 25 mg PO HS 07/20/18 07/20/18 History rivaroxaban [Xarelto] 15 mg PO DAILY 07/20/18 07/20/18 History timolol 1 drp OPHTHALMIC (EYE) BID 07/20/18 07/20/18 History Exam Vital signs: Vital Signs 07/20/18 13:34 07/20/18 13:57 07/20/18 14:00 Temperature 97.9 F Pulse Rate 67 64 Respiratory Rate 13 14 Blood Pressure 202/79 H 172/75 H Pulse Oximetry 100 100 100 07/20/18 18:50 07/20/18 19:10 07/20/18 20:00 Temperature 98.0 F 97.6 F 97.6 F Pulse Rate 68 70 70 Respiratory Rate 20 20 20 Blood Pressure 188/77 H 163/67 H 163/67 H Pulse Oximetry 99 98 07/20/18 21:45 07/20/18 22:00 07/20/18 23:26 Temperature 98.5 F 97.5 F L 98.5 F Pulse Rate 67 65 67 Respiratory Rate 18 18 18 Blood Pressure 174/73 H 169/71 H 174/73 H Pulse Oximetry 96 95 96 07/21/18 00:00 07/21/18 01:25 07/21/18 04:00 Temperature 97.9 F 98.1 F 98.2 F Pulse Rate 66 65 69 Respiratory Rate 18 18 19 Blood Pressure 188/78 H 160/75 H 166/74 H Pulse Oximetry 96 93 L 92 L 07/21/18 07:59 07/21/18 08:00 07/21/18 09:00 Temperature 98.0 F Pulse Rate 66 82 Respiratory Rate 17 Blood Pressure 172/74 H Pulse Oximetry 96 91 L Intake & Output 07/20/18 07/21/18 07/21/18 18:59 06:59 18:59 Intake Total 0 / 0 1800 / 1800 1000 / 1000 Balance 0 / 0 1800 / 1800 1000 / 1000 Weight 57.606 kg 58.2 kg Intake: IV 1000 / 1000 1000 / 1000 NS Inj 1,000 ML @ 125 mls/hr IV 1000 / 1000 1000 / 1000 .CONT .Q8H [facility] Rx#:[id number] Oral 0 / 0 Intake (Blood Product) Amt 0 / 0 800 / 800 Rbc As-3 Leukoreduced Unit 0 / 0 400 / 400 [id number] Rbc As-3 Leukoreduced Unit 400 / 400 [id number] Other: # Voids 1 Date of Last Bowel Movement 07/20/18 - Constitutional mild distress, obese, disheveled, cooperative - Routine HEENT Exam Head: Present: normocephalic ENT: Present: mucous membranes dry (Previous tongue resection oral cavity dry) - Routine Neck Exam Present: supple - Routine Respiratory Exam Present: accessory muscle use (No obvious shortness of breath) - Routine Cardiovascular Exam Present: S1, S2, irregular rhythm - Routine Abdominal Exam Present: soft (Round, obese, no obvious abdominal pain to light palpation) - Routine Skin Exam Present: intact, pallor <Mathew,Tracie M - Last Filed: 07/21/18 12:04> Vital signs: Vital Signs 07/20/18 21:45 07/20/18 22:00 07/20/18 23:26 Temperature 98.5 F 97.5 F L 98.5 F Pulse Rate 67 65 67 Respiratory Rate 18 18 18 Blood Pressure 174/73 H 169/71 H 174/73 H Pulse Oximetry 96 95 96 07/21/18 00:00 07/21/18 01:25 07/21/18 04:00 Temperature 97.9 F 98.1 F 98.2 F Pulse Rate 66 65 69 Respiratory Rate 18 18 19 Blood Pressure 188/78 H 160/75 H 166/74 H Pulse Oximetry 96 93 L 92 L 07/21/18 07:59 07/21/18 08:00 07/21/18 09:00 Temperature 98.0 F Pulse Rate 66 82 Respiratory Rate 17 Blood Pressure 172/74 H Pulse Oximetry 96 91 L 07/21/18 12:00 07/21/18 17:09 07/21/18 18:02 Temperature 97.8 F Pulse Rate 75 153 H 145 H Respiratory Rate 17 18 Blood Pressure 173/70 H 110/57 L 90/60 L Pulse Oximetry 92 L 96 07/21/18 18:18 07/21/18 18:22 07/21/18 18:25 Temperature Pulse Rate 130 H 139 H 59 L Respiratory Rate Blood Pressure 81/52 L Pulse Oximetry 07/21/18 18:30 Temperature Pulse Rate 59 L Respiratory Rate Blood Pressure 110/60 Pulse Oximetry Intake & Output 07/21/18 07/21/18 07/22/18 06:59 18:59 06:59 Intake Total 1800 / 1800 2480 / 2480 Balance 1800 / 1800 2480 / 2480 Weight 58.2 kg Intake: IV 999 / 999 NS Inj 1,000 ML @ 125 mls/hr IV 999 .CONT .Q8H [facility] Rx#:[id number] Oral 480 / 480 Intake (Blood Product) Amt 800 / 800 Rbc As-3 Leukoreduced Unit 400 / 400 [id number] Rbc As-3 Leukoreduced Unit 400 / 400 [id number] Other: # Voids 1 Date of Last Bowel Movement 07/20/18 <Olivia Diamond - Last Filed: 07/21/18 20:45> Results - Labs CBC & Chem 7: 07/21/18 06:56 07/21/18 06:56 Labs: Laboratory Results - last 24 hr 07/20/18 07/20/18 07/20/18 14:20 14:20 14:20 WBC 5.0 RBC 2.51 L Hgb 6.5 L* Hct 20.5 L* MCV 81.6 MCH 26.1 L MCHC 32.0 RDW 14.4 Plt Count 270 MPV 7.5 Prelim Diff (Auto) Slide review pending Neut % (Auto) 60.2 Lymph % (Auto) 22.4 [place] % (Auto) 13.0 H Eos % (Auto) 1.8 Baso % (Auto) 2.6 H Neut # (Auto) 3.0 Lymph # (Auto) 1.1 [place] # (Auto) 0.6 Eos # (Auto) 0.1 Baso # (Auto) 0.1 WBC Differential . Diff Scan Auto diff confirmed Differential Comment . Platelet Estimate Normal Platelet Morphology Normal Ovalocytes 1+ H Acanthocytes (Spur) 1+ H Keratocytes Occ H PT 11.6 INR 1.1 APTT 32.1 H Sodium 131 L Potassium 4.9 Chloride 99 Carbon Dioxide 25.9 Anion Gap 6 BUN 34 H Creatinine 1.35 H Estimated GFR 38 L POC Glucose Random Glucose 207 H Calcium 8.8 Magnesium 2.2 Iron TIBC % Saturation Total Bilirubin 0.5 AST 52 H ALT 88 H Alkaline Phosphatase 217 H Total Protein 7.3 Albumin 3.3 L Urine Color Urine Clarity Urine pH Ur Specific [place] Urine Protein Urine Glucose (UA) Urine Ketones Urine Occult Blood Urine Nitrate Urine Bilirubin Urine Urobilinogen Ur Leukocyte Esterase Urine RBC Urine WBC Ur Squamous Epith Cells Urine Mucus Micro UA Comment Ur Microscopic Review Urine Culture Comments Blood Type Blood Type Recheck Antibody Screen MTS Gel Crossmatch 07/20/18 07/20/18 07/20/18 14:20 14:20 14:23 WBC RBC Hgb Hct MCV MCH MCHC RDW Plt Count MPV Prelim Diff (Auto) Neut % (Auto) Lymph % (Auto) [place] % (Auto) Eos % (Auto) Baso % (Auto) Neut # (Auto) Lymph # (Auto) [place] # (Auto) Eos # (Auto) Baso # (Auto) WBC Differential Diff Scan Differential Comment Platelet Estimate Platelet Morphology Ovalocytes Acanthocytes (Spur) Keratocytes PT INR APTT Sodium Potassium Chloride Carbon Dioxide Anion Gap BUN Creatinine Estimated GFR POC Glucose Random Glucose Calcium Magnesium Iron 16 L TIBC 463 H % Saturation 3.5 L Total Bilirubin AST ALT Alkaline Phosphatase Total Protein Albumin Urine Color Straw Urine Clarity Clear Urine pH 5.0 Ur Specific [place] 1.008 Urine Protein Negative Urine Glucose (UA) Negative Urine Ketones Negative Urine Occult Blood Negative Urine Nitrate Negative Urine Bilirubin Negative Urine Urobilinogen Less than 2 Ur Leukocyte Esterase Negative Urine RBC 1 Urine WBC Less than 1 Ur Squamous Epith Cells <1 Urine Mucus Few H Micro UA Comment Culture not ind Ur Microscopic Review Not Reportable Urine Culture Comments Culture not ind Blood Type B Positive Blood Type Recheck Required Antibody Screen Negative MTS Gel Crossmatch See Detail 07/20/18 07/21/18 07/21/18 16:42 06:56 06:56 WBC RBC Hgb 5.8 L* 8.7 L D Hct 17.4 L* 26.7 L MCV MCH MCHC RDW Plt Count MPV Prelim Diff (Auto) Neut % (Auto) Lymph % (Auto) [place] % (Auto) Eos % (Auto) Baso % (Auto) Neut # (Auto) Lymph # (Auto) [place] # (Auto) Eos # (Auto) Baso # (Auto) WBC Differential Diff Scan Differential Comment Platelet Estimate Platelet Morphology Ovalocytes Acanthocytes (Spur) Keratocytes PT INR APTT Sodium 134 L Potassium 4.3 Chloride 101 Carbon Dioxide 22.5 Anion Gap 11 BUN 28 H Creatinine 1.35 H Estimated GFR 38 L POC Glucose Random Glucose 311 H D Calcium 8.6 Magnesium Iron TIBC % Saturation Total Bilirubin AST ALT Alkaline Phosphatase Total Protein Albumin Urine Color Urine Clarity Urine pH Ur Specific [place] Urine Protein Urine Glucose (UA) Urine Ketones Urine Occult Blood Urine Nitrate Urine Bilirubin Urine Urobilinogen Ur Leukocyte Esterase Urine RBC Urine WBC Ur Squamous Epith Cells Urine Mucus Micro UA Comment Ur Microscopic Review Urine Culture Comments Blood Type Blood Type Recheck Antibody Screen MTS Gel Crossmatch 07/21/18 07:50 WBC RBC Hgb Hct MCV MCH MCHC RDW Plt Count MPV Prelim Diff (Auto) Neut % (Auto) Lymph % (Auto) [place] % (Auto) Eos % (Auto) Baso % (Auto) Neut # (Auto) Lymph # (Auto) [place] # (Auto) Eos # (Auto) Baso # (Auto) WBC Differential Diff Scan Differential Comment Platelet Estimate Platelet Morphology Ovalocytes Acanthocytes (Spur) Keratocytes PT INR APTT Sodium Potassium Chloride Carbon Dioxide Anion Gap BUN Creatinine Estimated GFR POC Glucose 336 H Random Glucose Calcium Magnesium Iron TIBC % Saturation Total Bilirubin AST ALT Alkaline Phosphatase Total Protein Albumin Urine Color Urine Clarity Urine pH Ur Specific [place] Urine Protein Urine Glucose (UA) Urine Ketones Urine Occult Blood Urine Nitrate Urine Bilirubin Urine Urobilinogen Ur Leukocyte Esterase Urine RBC Urine WBC Ur Squamous Epith Cells Urine Mucus Micro UA Comment Ur Microscopic Review Urine Culture Comments Blood Type Blood Type Recheck Antibody Screen MTS Gel Crossmatch <MathewTracie M - Last Filed: 07/21/18 12:04> - Labs CBC & Chem 7: 07/21/18 18:01 07/21/18 06:56 Labs: Laboratory Results - last 24 hr 07/20/18 07/21/18 07/21/18 14:20 06:56 06:56 WBC RBC Hgb 8.7 L D Hct 26.7 L MCV MCH MCHC RDW Plt Count MPV Neut % (Auto) Lymph % (Auto) [place] % (Auto) Eos % (Auto) Baso % (Auto) Neut # (Auto) Lymph # (Auto) [place] # (Auto) Eos # (Auto) Baso # (Auto) WBC Differential Differential Comment Sodium 134 L Potassium 4.3 Chloride 101 Carbon Dioxide 22.5 Anion Gap 11 BUN 28 H Creatinine 1.35 H Estimated GFR 38 L POC Glucose Random Glucose 311 H D Calcium 8.6 Blood Type B Positive Blood Type Recheck Required Antibody Screen Negative MTS Gel Crossmatch See Detail 07/21/18 07/21/18 07/21/18 07:50 12:35 16:36 WBC RBC Hgb Hct MCV MCH MCHC RDW Plt Count MPV Neut % (Auto) Lymph % (Auto) [place] % (Auto) Eos % (Auto) Baso % (Auto) Neut # (Auto) Lymph # (Auto) [place] # (Auto) Eos # (Auto) Baso # (Auto) WBC Differential Differential Comment Sodium Potassium Chloride Carbon Dioxide Anion Gap BUN Creatinine Estimated GFR POC Glucose 336 H 398 H Random Glucose Calcium Blood Type Blood Type Recheck Antibody Screen MTS Gel Crossmatch See Detail 07/21/18 07/21/18 07/21/18 17:47 18:01 20:05 WBC 7.1 RBC 3.75 L Hgb 9.5 L Hct 29.6 L MCV 79.1 L MCH 25.3 L MCHC 32.0 RDW 15.5 Plt Count 238 MPV 7.5 Neut % (Auto) 79.1 H Lymph % (Auto) 11.6 [place] % (Auto) 8.0 Eos % (Auto) 0.1 Baso % (Auto) 1.2 Neut # (Auto) 5.6 Lymph # (Auto) 0.8 L [place] # (Auto) 0.6 Eos # (Auto) 0.0 Baso # (Auto) 0.1 WBC Differential . Differential Comment Auto diff final Sodium Potassium Chloride Carbon Dioxide Anion Gap BUN Creatinine Estimated GFR POC Glucose 292 H 369 H Random Glucose Calcium Blood Type Blood Type Recheck Antibody Screen MTS Gel Crossmatch <Olivia Diamond - Last Filed: 07/21/18 20:45> Assessment and Plan - Plan 73-year-old female who presented to the hospital on 07/20/2018 with weakness and fatigue for approximately a week and a half and melena stools for approximately 1 week. Patient notes she does have a history of constipation and does admit to some straining but does not take any usual medications for any bowel regimen. Aggregating factors could be related to p.o. iron supplements. Patient states appetite is good and she denies any current nausea vomiting or dyspepsia. 24 hours ago patient did have fairly large bowel movement which was noted to be more maroon in color but denies any current abdominal pain or cramping. Patient denies any family history of colon cancer and states endoscopy done approximately 9 years ago. Patient notes recent colonoscopy with Dr. Kang in January 2018 which showed large polyp. Current labs show initial hemoglobin on admission 6.5 and then repeated to be 5.8 patient had transfusion. Other labs reviewed was PT/INR 1.1, bilirubin 0.5, AST 52, ALT 88, and alkaline phosphatase 217. Patient has been on Xarelto since 2013 for her atrial fibrillation and denies any previous history of any GI bleeding. Patient notes recent hospital stay at [facility] , was evaluated and found UTI and was also treated for hyponatremia. Gastroenterology was consulted to assist with her current GI symptoms with melena stools and symptomatic anemia as well as develop per plan of care. Symptomatic anemia, symptoms of dark melena stools, but noted maroon colored stool over the past 24 hours x1 Aggregating factors could be related to his Xarelto which patient has been taken since 2013 History of constipation which could be related to iron supplements patient does note straining with bowel movements Recent hospital stay at [facility] for UTI and hyponatremia 06/20-06/24 Plan Diet n.p.o. Consent for EGD to be done today Xarelto currently on hold MiraLAX daily and monitor bowel regimen needed PPI Supportive care Further recommendations to follow Patient was seen per myself and Dr. Diamond, note was written on her behalf <Tracie Carmona - Last Filed: 07/21/18 12:04> - Attending Attestation seen, examined agree with above <Olivia Diamond - Last Filed: 07/21/18 20:45>
[2018-07-21] MEDS: Insulin NovoLOG Aspart Correctional Sugar Inj SQ SCH ×3 (12:40→21:43)
[2018-07-21] MEDS: Metoprolol Tartrate 25 MG Tablet PO SCH ×2 (13:06→21:44)
[2018-07-21] MEDS: Metoprolol Inj 5 MG/5 ML Vial IV.PUSH PRN ×2 (13:20→16:53)
[2018-07-21] MEDS ORDERED: dilTIAZem Inj 125 MG in Sodium Chlor 0.9% Inj 100 ML IV.CONT PRN ×2 (15:49→17:31)
--- NOTE | 2018-07-21 17:48 | P.PN ---
Subjective Interval history: Follow up for GI bleed anemia, Atrial fibrillation. Patient was seen before she went to GI lab. Her heart rate was 120-160s. We pushed 5mg of IV metoprolol which controlled heart rate to 115 range. However, once patient went to GI lab, her heart rate again went up in the 150s range. Subsequently EGD was cancelled. I discussed with GI attending who recommended Cardiology consult and transferring patient to cardiac floor. Patient was started on Cardizem drip. Physical Exam Vital signs: Vital Signs 07/20/18 18:50 07/20/18 19:10 07/20/18 20:00 Temperature 98.0 F 97.6 F 97.6 F Pulse Rate 68 70 70 Respiratory Rate 20 20 20 Blood Pressure 188/77 H 163/67 H 163/67 H Pulse Oximetry 99 98 07/20/18 21:45 07/20/18 22:00 07/20/18 23:26 Temperature 98.5 F 97.5 F L 98.5 F Pulse Rate 67 65 67 Respiratory Rate 18 18 18 Blood Pressure 174/73 H 169/71 H 174/73 H Pulse Oximetry 96 95 96 07/21/18 00:00 07/21/18 01:25 07/21/18 04:00 Temperature 97.9 F 98.1 F 98.2 F Pulse Rate 66 65 69 Respiratory Rate 18 18 19 Blood Pressure 188/78 H 160/75 H 166/74 H Pulse Oximetry 96 93 L 92 L 07/21/18 07:59 07/21/18 08:00 07/21/18 09:00 Temperature 98.0 F Pulse Rate 66 82 Respiratory Rate 17 Blood Pressure 172/74 H Pulse Oximetry 96 91 L 07/21/18 12:00 07/21/18 17:09 Temperature 97.8 F Pulse Rate 75 135 H Respiratory Rate 17 18 Blood Pressure 173/70 H 110/57 L Pulse Oximetry 92 L 96 Intake & Output 07/20/18 07/21/18 07/21/18 18:59 06:59 18:59 Intake Total 0 / 0 1800 / 1800 1000 / 1000 Balance 0 / 0 1800 / 1800 1000 / 1000 Weight 57.606 kg 58.2 kg Intake: IV 1000 / 1000 1000 / 1000 NS Inj 1,000 ML @ 125 mls/hr IV 1000 / 1000 1000 / 1000 .CONT .Q8H [facility] Rx#:[id number] Oral 0 / 0 Intake (Blood Product) Amt 0 / 0 800 / 800 Rbc As-3 Leukoreduced Unit 0 / 0 400 / 400 [id number] Rbc As-3 Leukoreduced Unit 400 / 400 [id number] Other: # Voids 1 Date of Last Bowel Movement 07/20/18 Narrative: GENERAL: Alert, oriented x 3, NAD. (Patient seen prior to going to GI lab for EGD) SKIN: Warm and dry. HEAD: Normocephalic. EYES: No scleral icterus. No injection or drainage. NECK: Supple, trachea midline. No JVD or lymphadenopathy. CARDIOVASCULAR: Tachycardic without murmurs, gallops, or rubs. RESPIRATORY: Breath sounds equal bilaterally. No accessory muscle use. GASTROINTESTINAL: Abdomen soft, non-tender, nondistended. MUSCULOSKELETAL: No cyanosis, or edema. BACK: Nontender without obvious deformity. No CVA tenderness. Results - Labs CBC & Chem 7: 07/21/18 18:01 07/21/18 06:56 Laboratory Results - last 24 hr 07/20/18 07/21/18 07/21/18 14:20 06:56 06:56 Hgb 8.7 L D Hct 26.7 L Sodium 134 L Potassium 4.3 Chloride 101 Carbon Dioxide 22.5 Anion Gap 11 BUN 28 H Creatinine 1.35 H Estimated GFR 38 L POC Glucose Random Glucose 311 H D Calcium 8.6 Blood Type B Positive Blood Type Recheck Required Antibody Screen Negative MTS Gel Crossmatch See Detail 07/21/18 07/21/18 07/21/18 07:50 12:35 16:36 Hgb Hct Sodium Potassium Chloride Carbon Dioxide Anion Gap BUN Creatinine Estimated GFR POC Glucose 336 H 398 H Random Glucose Calcium Blood Type Blood Type Recheck Antibody Screen MTS Gel Crossmatch See Detail Assessment and Plan - Plan This patient is a 73-year-old female with a diagnosis of atrial fibrillation on Xarelto, status post ablation x2, coronary artery disease status post stent placement, history of TIA, 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 She presents to our emergency department today with complaints of fatigue and black tarry stools that have been ongoing for the past 1 week prior to this admission. GI was consulted. Acute GI blood loss anemia -On protonix drip. This can likely be changed to IV push or PO. -EGD was supposed to be done today. It was postponed due to Afib RVR -Possible EGD tomorrow -Patient received blood transfusion. Repeat Hgb close to 9.0. Lowest hgb 5.8. Atrial fibrillation with RVR -Received IV metoprolol. Did not control HR -Patient is currently on Cardizem drip and cardiology consulted. -Hold Anticoagulation for now. -Continue Metoprolol PO. Diabetes mellitus Hypothyroidism - Continue Levemir and sliding scale insulin - Continue Levothyroxine 75mcg Qday. Full code. Avoid Lovenox/Heparin for now.
--- NOTE | 2018-07-21 18:12 | ECG ---
Date Performed: 07/20/2018 Time Performed: 20:20:59 PTAGE: 73 years EKG: Sinus rhythm ST DEVIATION AND MODERATE T-WAVE ABNORMALITY, CONSIDER INFERIOR ISCHEMIA ABNORMAL ECG NO PREVIOUS TRACING DOCTOR: Morris Jones Interpretating Date/Time 07/21/2018 18:12:05
[2018-07-21 18:20] LABS: Baso # (Auto) 0.1 th/mm3 (0.0-0.2); Baso % (Auto) 1.2 % (0.0-2.0); Eos % (Auto) 0.1 % (0.0-4.0); Hematocrit 29.6 % (35.0-46.0); Hemoglobin 9.5 gm/dL (11.6-15.3); Lymph # (Auto) 0.8 th/mm3 (1.0-4.8); Lymph % (Auto) 11.6 % (9.0-44.0); Mean Corpuscular Hemoglobin 25.3 pg (27.0-34.0); Mean Corpuscular Volume 79.1 fL (80.0-100.0); Mean Platelet Volume 7.5 fL (7.0-11.0); Mono # (Auto) 0.6 th/mm3 (0.0-0.9); Neut # (Auto) 5.6 th/mm3 (1.8-7.7); Neut % (Auto) 79.1 % (16.0-70.0); Platelet Count 238 th/mm3 (150-450); Red Blood Count 3.75 mil/mm3 (4.00-5.30); Red Cell Distribution Width 15.5 % (11.6-17.2); White Blood Count 7.1 th/mm3 (4.0-11.0)
--- NOTE | 2018-07-21 18:48 | P.PNGI ---
Physical Exam Vital signs: Vital Signs 07/20/18 18:50 07/20/18 19:10 07/20/18 20:00 Temperature 98.0 F 97.6 F 97.6 F Pulse Rate 68 70 70 Respiratory Rate 20 20 20 Blood Pressure 188/77 H 163/67 H 163/67 H Pulse Oximetry 99 98 07/20/18 21:45 07/20/18 22:00 07/20/18 23:26 Temperature 98.5 F 97.5 F L 98.5 F Pulse Rate 67 65 67 Respiratory Rate 18 18 18 Blood Pressure 174/73 H 169/71 H 174/73 H Pulse Oximetry 96 95 96 07/21/18 00:00 07/21/18 01:25 07/21/18 04:00 Temperature 97.9 F 98.1 F 98.2 F Pulse Rate 66 65 69 Respiratory Rate 18 18 19 Blood Pressure 188/78 H 160/75 H 166/74 H Pulse Oximetry 96 93 L 92 L 07/21/18 07:59 07/21/18 08:00 07/21/18 09:00 Temperature 98.0 F Pulse Rate 66 82 Respiratory Rate 17 Blood Pressure 172/74 H Pulse Oximetry 96 91 L 07/21/18 12:00 07/21/18 17:09 07/21/18 18:02 Temperature 97.8 F Pulse Rate 75 135 H 145 H Respiratory Rate 17 18 Blood Pressure 173/70 H 110/57 L 90/60 L Pulse Oximetry 92 L 96 07/21/18 18:18 Temperature Pulse Rate 130 H Respiratory Rate Blood Pressure 81/52 L Pulse Oximetry Intake & Output 07/20/18 07/21/18 07/21/18 18:59 06:59 18:59 Intake Total 0 / 0 1800 / 1800 1000 / 1000 Balance 0 / 0 1800 / 1800 1000 / 1000 Weight 57.606 kg 58.2 kg Intake: IV 1000 / 1000 1000 / 1000 NS Inj 1,000 ML @ 125 mls/hr IV 1000 / 1000 1000 / 1000 .CONT .Q8H [facility] Rx#:[id number] Oral 0 / 0 Intake (Blood Product) Amt 0 / 0 800 / 800 Rbc As-3 Leukoreduced Unit 0 / 0 400 / 400 [id number] Rbc As-3 Leukoreduced Unit 400 / 400 [id number] Other: # Voids 1 Date of Last Bowel Movement 10/16/18 Results - Labs CBC & Chem 7: 07/21/18 18:01 07/21/18 06:56 Laboratory Results - last 24 hr 07/20/18 07/21/18 07/21/18 14:20 06:56 06:56 WBC RBC Hgb 8.7 L D Hct 26.7 L MCV MCH MCHC RDW Plt Count MPV Neut % (Auto) Lymph % (Auto) [place] % (Auto) Eos % (Auto) Baso % (Auto) Neut # (Auto) Lymph # (Auto) [place] # (Auto) Eos # (Auto) Baso # (Auto) WBC Differential Differential Comment Sodium 134 L Potassium 4.3 Chloride 101 Carbon Dioxide 22.5 Anion Gap 11 BUN 28 H Creatinine 1.35 H Estimated GFR 38 L POC Glucose Random Glucose 311 H D Calcium 8.6 Blood Type B Positive Blood Type Recheck Required Antibody Screen Negative MTS Gel Crossmatch See Detail 07/21/18 07/21/18 07/21/18 07:50 12:35 16:36 WBC RBC Hgb Hct MCV MCH MCHC RDW Plt Count MPV Neut % (Auto) Lymph % (Auto) [place] % (Auto) Eos % (Auto) Baso % (Auto) Neut # (Auto) Lymph # (Auto) [place] # (Auto) Eos # (Auto) Baso # (Auto) WBC Differential Differential Comment Sodium Potassium Chloride Carbon Dioxide Anion Gap BUN Creatinine Estimated GFR POC Glucose 336 H 398 H Random Glucose Calcium Blood Type Blood Type Recheck Antibody Screen MTS Gel Crossmatch See Detail 07/21/18 07/21/18 17:47 18:01 WBC 7.1 RBC 3.75 L Hgb 9.5 L Hct 29.6 L MCV 79.1 L MCH 25.3 L MCHC 32.0 RDW 15.5 Plt Count 238 MPV 7.5 Neut % (Auto) 79.1 H Lymph % (Auto) 11.6 [place] % (Auto) 8.0 Eos % (Auto) 0.1 Baso % (Auto) 1.2 Neut # (Auto) 5.6 Lymph # (Auto) 0.8 L [place] # (Auto) 0.6 Eos # (Auto) 0.0 Baso # (Auto) 0.1 WBC Differential . Differential Comment Auto diff final Sodium Potassium Chloride Carbon Dioxide Anion Gap BUN Creatinine Estimated GFR POC Glucose 292 H Random Glucose Calcium Blood Type Blood Type Recheck Antibody Screen MTS Gel Crossmatch Assessment and Plan - Attending Attestation Patient came to gi lab for egd, while waiting to start procedure, she developed atrial fibrillation , HR went up to 150. Was given Metoprolol with no response. Due to multiple drug reactions , anesthesia recommended to hold procedure for now, consult cardiology for appropriate drug management We will reschedule in am discussed with family, patient and medical attending CBC now transfuse 1 more unit of prbc Reschedule egd in am once hr controlled
[2018-07-21] MEDS: Insulin Detemir Inj 1,000 UNIT/10 ML Vial SQ SCH (21:44)
[2018-07-22] MEDS: Sod Chloride 0.9% Inj 1,000 ML IV.CONT SCH ×3 (02:39→16:42)
[2018-07-22 04:25] LABS: Baso # (Auto) 0.1 th/mm3 (0.0-0.2); Baso % (Auto) 1.4 % (0.0-2.0); Eos # (Auto) 0.2 th/mm3 (0.0-0.4); Eos % (Auto) 2.3 % (0.0-4.0); Hematocrit 23.4 % (35.0-46.0); Hemoglobin 7.7 gm/dL (11.6-15.3); Lymph # (Auto) 1.4 th/mm3 (1.0-4.8); Lymph % (Auto) 19.8 % (9.0-44.0); Mean Corpuscular Hemoglobin 25.7 pg (27.0-34.0); Mean Corpuscular Volume 77.8 fL (80.0-100.0); Mean Platelet Volume 7.4 fL (7.0-11.0); Mono # (Auto) 1.2 th/mm3 (0.0-0.9); Mono % (Auto) 17.5 % (0.0-8.0); Neut # (Auto) 4.2 th/mm3 (1.8-7.7); Platelet Count 199 th/mm3 (150-450); Red Cell Distribution Width 15.2 % (11.6-17.2); White Blood Count 7.1 th/mm3 (4.0-11.0)
[2018-07-22 04:50] LABS: Alanine Aminotransferase 68 U/L (10-53); Albumin 2.8 g/dL (3.4-5.0); Alkaline Phosphatase 161 U/L (45-117); Anion Gap 9 meq/L (5-15); Aspartate Aminotransferase 42 U/L (15-37); Blood Urea Nitrogen 34 mg/dL (7-18); Calcium 8.4 mg/dL (8.5-10.1); Chloride 105 meq/L (98-107); Glomerular Filtration Rate 40 mL/min (>89); Glucose,Random 62 mg/dL (74-106); Potassium 3.7 meq/L (3.5-5.1); Sodium 138 meq/L (136-145); Total Protein 6.3 g/dL (6.4-8.2)
[2018-07-22] MEDS: Dextrose 50% in Water 50 ML Vial IV.PUSH PRN (05:16)
[2018-07-22] MEDS: Levothyroxine 75 MCG Tablet PO SCH (05:19)
[2018-07-22] MEDS: Dextrose 5%/NaCl 0.9% Inj 1,000 ML IV.CONT SCH ×3 (06:24→22:53)
[2018-07-22] MEDS ORDERED: Lidocaine PF 1% Inj 5 ML Syringe OTHER ONE (09:35)
--- NOTE | 2018-07-22 09:53 | GIPROC ---
[facility] [address] [employer]. [facility], [address] EGD PROCEDURE REPORT EXAM DATE: 07/22/2018 PATIENT NAME: Ayesha Hardin MR #: [id number] BIRTHDATE: 1945 ATTENDING: Olivia Diamond MD ORDER #: [id number] HURL SHAKER: STATUS: inpatient INDICATIONS: The patient is a 73 yr old female here for an EGD due to anemia gi bleeding PROCEDURE PERFORMED: EGD w/ biopsy MEDICATIONS: None and Per Anesthesia. TOPICAL ANESTHETIC: none CONSENT: The patient understands the risks and benefits of the procedure and understands that these risks include, but are not limited to: sedation, allergic reaction, infection, perforation and/or bleeding. Alternative means of evaluation and treatment include, among others: physical exam, x-rays, and/or surgical intervention. The patient elects to proceed with this endoscopic procedure. medical equipment was checked for proper function. Hand hygiene and appropriate measures for infection prevention was taken. After the risks, benefits and alternatives of the procedure were thoroughly explained, Informed consent was verified, confirmed and timeout was successfully executed by the treatment team. The patient was anesthetized with topical anesthesia and the endoscope was introduced through the mouth and advanced to the second portion of the duodenum. Retroflexed views revealed a hiatal hernia The gastroscope was then slowly withdrawn and removed. Duodenum normal-biopsy gastrtisi antrum-biopsy esophagitis distal esophagus-biopsy. ADVERSE EVENTS: There were no complications. IMPRESSIONS: 1. Duodenum normal-biopsy gastrtisi antrum-biopsy esophagitis distal esophagus-biopsy 2. Retroflexed views revealed a hiatal hernia RECOMMENDATIONS: 1. Await biopsy results. Biopsy results will not be ready for 7-10 days. If you don't hear from us in two weeks, call our office for biopsy results. 2. Anti-reflux regimen 3. Continue PPI 4. Ct abdomen/pelvis bleeding scan colonoscopy in am transfuse to keep hb more than 8 clear liquids today PATIENT CONDITION: stable DISPOSITION: Inpatient REPEAT EXAM: Return 3 years EGD Olivia Diamond MD eSigned: Olivia Diamond MD 07/22/2018 9:53 AM cc: PATIENT NAME: Ayesha Hardin MR#: [id number]
[2018-07-22] MEDS: Insulin NovoLOG Aspart Correctional Sugar Inj SQ SCH ×4 (10:01→21:23)
[2018-07-22] MEDS: Metoprolol Tartrate 25 MG Tablet PO SCH ×3 (11:35→17:02)
[2018-07-22] MEDS: Iron Sucrose Inj 200 MG in Sodium Chlor 0.9% Inj 100 ML IV.SIG SCH (11:47)
[2018-07-22] MEDS ORDERED: PEG 3350/E-Lyte Soln 4000 ML Bottle PO ONE (12:00)
--- NOTE | 2018-07-22 13:44 | P.CONCA ---
History of Present Illness Service: Cardiology Consult date: 07/22/18 Requesting Physician: Olivia Diamond Reason for Consult: Uncontrolled atrial fibrillation Primary Care Provider: Esther Smith DO History of Present Illness: This is a 73-year-old female with a past history of atrial fibrillation on Xarelto, ablation x2, coronary artery disease with stent placement, history of TIA and history of squamous cell carcinoma of the tongue. She was seen by her oncologist Dr. Powers and was sent to the emergency department for further evaluation due to black tarry stools times 1 week. She states that over the last week she has had an increase in fatigue along with the black tarry stools. On evaluation today, she states that she is feeling much better after the transfusion. She denies any chest pain, pressure, palpitations, dizziness, edema or shortness of breath. Patient was evaluated down in radiology while awaiting a GI procedure. Review of Systems All other systems reviewed negative except as stated in HPI [facility] - History History Provided By: Patient - Medical History Medical History: Medical History (Last Reviewed 07/20/18 @ 15:15 by GÓMEZ Sharma) A-fib Anemia CAD (coronary artery disease) Diabetes Glaucoma HTN (hypertension) Hyponatremia Hypothyroid Renal failure Restless leg syndrome Squamous cell carcinoma of tongue TIA (transient ischemic attack) - Surgical History Surgical History: Surgical History (Last Reviewed 07/20/18 @ 15:15 by GÓMEZ Sharma) S/P ablation of atrial fibrillation - Tobacco History Second Hand Smoke Exposure: No Tobacco Use In Past 30 Days: No Smoking Status: Former smoker - Alcohol History How Often Do You Have a Drink Containing Alcohol: Never - Substance Use History Substance History: No History of Abuse - Travel History Recent Travel in the [place] Within the Last 8 Weeks: No Recent Travel Out of the Country Within the Last 8 Weeks: No - Immunization History Tetanus Immunization: <5 Years Medications and Allergies Allergies Allergy/AdvReac Type Severity Reaction Status Date / Time amlodipine Allergy Unknown Ankle Verified 07/20/18 14:15 swelling morphine Allergy Unknown Vomiting Verified 07/20/18 14:15 Sulfa (Sulfonamide Allergy Unknown Stomach Verified 07/20/18 14:15 Antibiotics) upset digoxin Allergy Bradycardia Verified 07/20/18 14:19 dronedarone [From Multaq] Allergy Weakness Verified 07/20/18 14:19 furosemide [From Lasix] Allergy Weakness Verified 07/20/18 14:19 Iodinated Contrast- Oral and Allergy Itching Verified 07/20/18 14:19 IV Dye [Contrast] levofloxacin Allergy Joint Pain Verified 07/20/18 14:19 ciprofloxacin [From Cipro] AdvReac Nausea Verified 07/20/18 14:19 Home Medications Medication Instructions Recorded Confirmed Type aspirin 81 mg PO DAILY 07/20/18 07/20/18 History hydralazine 25 mg PO BID 07/20/18 07/20/18 History insulin glargine [Lantus U-100 10 unit SUBCUT DAILY 07/20/18 07/20/18 History Insulin] insulin lispro [Humalog U-100 1 sliding scale dose SUBCUT UD 07/20/18 07/20/18 History Insulin] irbesartan 150 mg PO DAILY 07/20/18 07/20/18 History levothyroxine 75 mcg PO DAILY 07/20/18 07/20/18 History metoprolol tartrate 25 mg PO HS 07/20/18 07/20/18 History rivaroxaban [Xarelto] 15 mg PO DAILY 07/20/18 07/20/18 History timolol 1 drp OPHTHALMIC (EYE) BID 07/20/18 07/20/18 History Active Medications: Active Medications Dextrose (D50w Vial) 50 ml IV.PUSH UNSCH PRN PRN Reason: PER HYPOGLYCEMIA PROTOCOL Last Admin: 07/22/18 05:16 Dose: 50 ml Glucagon (Glucagon Inj) 1 mg OTHER PRN PRN PRN Reason: for Hypoglycemia Protocol Pantoprazole Sodium 80 mg/ (Sodium Chloride) 100 mls @ 10 mls/hr IV.CONT CONT [facility] Sodium Chloride (Ns Inj) 1,000 mls @ 125 mls/hr IV.CONT .Q8H [facility] Last Admin: 07/22/18 11:35 Dose: Not Given Sodium Chloride (Ns Inj) 500 mls @ 30 mls/hr IV.SIG .Q10H [facility] Last Admin: 07/22/18 10:00 Dose: Not Given Iron Sucrose 200 mg/ Sodium (Chloride) 110 mls @ 110 mls/hr IV.SIG DAILY [facility] Stop: 07/24/18 09:59 Last Infusion: 07/22/18 12:57 Dose: Infused Diltiazem HCl 125 mg/ Sodium (Chloride) 125 mls @ 5 mls/hr IV.CONT TITRATE PRN ; Protocol PRN Reason: Per Protocol Last Admin: 07/21/18 17:54 Dose: 5 mg/hr, 5 mls/hr Dextrose/Sodium Chloride (D5w/Normal Saline Inj) 1,000 mls @ 125 mls/hr IV.CONT .Q8H [facility] Last Admin: 07/22/18 06:24 Dose: 125 mls/hr Insulin Aspart (Novolog Insulin Correctional Sugar Inj) 0 unit SQ ACHS [facility]; Protocol Last Admin: 07/22/18 11:36 Dose: Not Given Insulin Aspart (Novolog Inj) 3 units SQ TIDAC [facility] Last Admin: 07/22/18 11:36 Dose: Not Given Insulin Detemir (Levemir Inj) 10 unit SQ HS [facility] Last Admin: 07/21/18 21:44 Dose: 10 unit Levothyroxine Sodium (Synthroid) 75 mcg PO DAILY@0600 [facility] Last Admin: 07/22/18 05:19 Dose: 75 mcg Metoprolol Tartrate (Lopressor) 25 mg PO TID [facility] Last Admin: 07/22/18 12:11 Dose: 25 mg Metoprolol Tartrate (Lopressor Inj) 5 mg IV.PUSH Q5M PRN PRN Reason: Afib Last Admin: 07/21/18 16:53 Dose: 5 mg Ondansetron HCl (Zofran Inj) 4 mg IV.PUSH Q6H PRN PRN Reason: NAUSEA OR VOMITING Sodium Chloride (Ns Flush) 2 ml IV.FLUSH BID [facility] Last Admin: 07/22/18 11:35 Dose: Not Given Sodium Chloride (Ns Flush) 2 ml IV.FLUSH PRN PRN PRN Reason: FLUSH AFTER USING IV ACCESS Exam Vital signs: Vital Signs 07/21/18 17:09 07/21/18 18:02 07/21/18 18:18 Temperature Pulse Rate 153 H 145 H 130 H Respiratory Rate 18 Blood Pressure 110/57 L 90/60 L 81/52 L Pulse Oximetry 96 07/21/18 18:22 07/21/18 18:25 07/21/18 18:30 Temperature Pulse Rate 139 H 59 L 59 L Respiratory Rate Blood Pressure 110/60 Pulse Oximetry 07/21/18 19:00 07/21/18 20:00 07/21/18 21:00 Temperature 98.4 F Pulse Rate 54 L 56 L 58 L Respiratory Rate 16 Blood Pressure 128/60 Pulse Oximetry 97 07/21/18 22:00 07/21/18 23:00 07/22/18 00:00 Temperature 97.9 F Pulse Rate 56 L 52 L 54 L Respiratory Rate 16 Blood Pressure 132/60 Pulse Oximetry 97 07/22/18 01:00 07/22/18 02:00 07/22/18 03:00 Temperature 98.3 F Pulse Rate 52 L 52 L 54 L Respiratory Rate 16 Blood Pressure 153/70 H Pulse Oximetry 95 07/22/18 04:00 07/22/18 05:00 07/22/18 06:00 Temperature Pulse Rate 54 L 52 L 50 L Respiratory Rate Blood Pressure Pulse Oximetry 07/22/18 07:00 07/22/18 08:00 07/22/18 09:00 Temperature 98.0 F Pulse Rate 66 53 L 57 L Respiratory Rate 16 Blood Pressure 151/74 H Pulse Oximetry 99 07/22/18 10:00 07/22/18 11:00 07/22/18 11:10 Temperature 97.9 F Pulse Rate 57 L 54 L 54 L Respiratory Rate 16 Blood Pressure 144/63 H Pulse Oximetry 94 L 07/22/18 11:12 07/22/18 12:00 07/22/18 13:00 Temperature 97.9 F Pulse Rate 54 L 59 L 51 L Respiratory Rate 16 Blood Pressure 144/63 H Pulse Oximetry 94 L Intake & Output 07/21/18 07/22/18 07/22/18 18:59 06:59 18:59 Intake Total 2480 / 2480 1340 / 1340 110 / 110 Balance 2480 / 2480 1340 / 1340 110 / 110 Weight 59 kg Intake: IV 1999 1100 / 1100 110 / 110 NS Inj 1,000 ML @ 125 mls/hr IV 1999 / 1999 1100 / 1100 .CONT .Q8H [facility] Rx#:[id number] Venofer Inj 200 MG In NS Inj 110 / 110 100 ML @ 110 mls/hr IV.SIG DAILY [facility] Rx#:[id number] Oral 480 / 480 240 / 240 Other: # Voids 1 1 Date of Last Bowel Movement 07/20/18 07/21/18 # Bowel Movements 1 - Constitutional no acute distress - Routine HEENT Exam Head: Present: normocephalic Eye: Present: PERRL ENT: Present: mucous membranes moist - Routine Neck Exam Present: full ROM - Routine Respiratory Exam Present: CTA bilaterally - Routine Cardiovascular Exam Present: S1, S2. Absent: murmur, gallop, rubs - Routine Abdominal Exam Present: normoactive bowel sounds - Routine Extremities Exam Present: full ROM, pulses intact, normal capillary refill. Absent: cyanosis, clubbing, edema - Routine Skin Exam Present: intact - Routine Neurological Exam Present: oriented X3 Results 07/22/18 21:30 07/22/18 03:16 Cardiac Enzymes 07/20/18 07/22/18 Range/Units 14:20 03:16 AST 52 H 42 H (15-37) U/L Coagulation 07/20/18 Range/Units 14:20 PT 11.6 (9.8-11.6) sec APTT 32.1 H (24.3-30.1) sec CBC 07/20/18 07/20/18 07/21/18 Range/Units 14:20 16:42 06:56 WBC 5.0 (4.0-11.0) th/mm3 RBC 2.51 L (4.00-5.30) mil/mm3 Hgb 6.5 L* 5.8 L* 8.7 L D (11.6-15.3) gm/dL Hct 20.5 L* 17.4 L* 26.7 L (35.0-46.0) % Plt Count 270 (150-450) th/mm3 Neut # (Auto) 3.0 (1.8-7.7) th/mm3 Lymph # (Auto) 1.1 (1.0-4.8) th/mm3 [place] # (Auto) 0.6 (0.0-0.9) th/mm3 Eos # (Auto) 0.1 (0.0-0.4) th/mm3 Baso # (Auto) 0.1 (0.0-0.2) th/mm3 07/21/18 07/22/18 Range/Units 18:01 03:16 WBC 7.1 7.1 (4.0-11.0) th/mm3 RBC 3.75 L 3.00 L (4.00-5.30) mil/mm3 Hgb 9.5 L 7.7 L (11.6-15.3) gm/dL Hct 29.6 L 23.4 L (35.0-46.0) % Plt Count 238 199 (150-450) th/mm3 Neut # (Auto) 5.6 4.2 (1.8-7.7) th/mm3 Lymph # (Auto) 0.8 L 1.4 (1.0-4.8) th/mm3 [place] # (Auto) 0.6 1.2 H (0.0-0.9) th/mm3 Eos # (Auto) 0.0 0.2 (0.0-0.4) th/mm3 Baso # (Auto) 0.1 0.1 (0.0-0.2) th/mm3 Comprehensive Metabolic Panel 07/20/18 07/21/18 07/22/18 Range/Units 14:20 06:56 03:16 Sodium 131 L 134 L 138 (136-145) meq/L Potassium 4.9 4.3 3.7 (3.5-5.1) meq/L Chloride 99 101 105 (98-107) meq/L Carbon Dioxide 25.9 22.5 24.0 (21.0-32.0) meq/L BUN 34 H 28 H 34 H (7-18) mg/dL Creatinine 1.35 H 1.35 H 1.29 H (0.50-1.00) mg/dL Calcium 8.8 8.6 8.4 L (8.5-10.1) mg/dL AST 52 H 42 H (15-37) U/L ALT 88 H 68 H (10-53) U/L Alkaline Phosphatase 217 H 161 H (45-117) U/L Total Protein 7.3 6.3 L D (6.4-8.2) g/dL Albumin 3.3 L 2.8 L (3.4-5.0) g/dL Intake and Output 07/21/18 07/22/18 07/22/18 22:59 06:59 14:59 Intake Total 1480 / 1480 1340 / 1340 110 / 110 Balance 1480 / 1480 1340 / 1340 110 / 110 Intake: IV 1000 / 1000 1100 / 1100 110 / 110 NS Inj 1,000 ML @ 125 mls/hr IV 1000 / 1000 1100 / 1100 .CONT .Q8H [facility] Rx#:[id number] Venofer Inj 200 MG In NS Inj 110 / 110 100 ML @ 110 mls/hr IV.SIG DAILY [facility] Rx#:[id number] Oral 480 / 480 240 / 240 Other: # Voids 1 Date of Last Bowel Movement 07/21/18 07/21/18 # Bowel Movements 1 Weight 59 kg Assessment and Plan - Assessment (1) History of atrial fibrillation Code(s): Z86.79 - Personal history of other diseases of the circulatory system Status: Acute (2) Acute GI bleeding Code(s): K92.2 - Gastrointestinal hemorrhage, unspecified Status: Acute (3) Anticoagulant long-term use Code(s): Z79.01 - custodial (current) use of anticoagulants Status: Acute (4) Symptomatic anemia Code(s): D64.9 - Anemia, unspecified Status: Acute - Plan We will continue rate control for paroxysmal atrial fibrillation; the patient is currently in sinus rhythm. GI evaluation in progress. We will continue to hold anticoagulation due to GI bleeding. We will continue to follow patient during her hospitalization. Patient to follow-up with her primary tractor operator helper, Dr. Klein, after discharge. Patient was seen and evaluated by Dr. Heredia who participated in care, management and decision-making. - Attending Attestation Patient seen and examined. I reviewed and agree with the evaluation and plan as presented. Currently back in SR. Hold anticoagulation until cleared by GI. F/u with Dr. Klein after discharge.
--- NOTE | 2018-07-22 14:11 | P.PNONC ---
Subjective Interval history: Late entry: Patient seen earlier this a.m. Patient reports she is still with rectal bleeding. She describes it as maroon in color. Patient reports she had a EGD and they did not see any bleeding, she is unsure if she is scheduled for colonoscopy, she is awaiting abdominal ultrasound. RN is at the bedside hanging IV iron. She reports that GI prep has been ordered , therefore leading her to believe that the patient will receive a colonoscopy. She will call and confirm. Objective Vital Signs/Intake & Output: Vital Signs 07/21/18 17:09 07/21/18 18:02 07/21/18 18:18 Temperature Pulse Rate 153 H 145 H 130 H Respiratory Rate 18 Blood Pressure 110/57 L 90/60 L 81/52 L Pulse Oximetry 96 07/21/18 18:22 07/21/18 18:25 07/21/18 18:30 Temperature Pulse Rate 139 H 59 L 59 L Respiratory Rate Blood Pressure 110/60 Pulse Oximetry 07/21/18 19:00 07/21/18 20:00 07/21/18 21:00 Temperature 98.4 F Pulse Rate 54 L 56 L 58 L Respiratory Rate 16 Blood Pressure 128/60 Pulse Oximetry 97 07/21/18 22:00 07/21/18 23:00 07/22/18 00:00 Temperature 97.9 F Pulse Rate 56 L 52 L 54 L Respiratory Rate 16 Blood Pressure 132/60 Pulse Oximetry 97 07/22/18 01:00 07/22/18 02:00 07/22/18 03:00 Temperature 98.3 F Pulse Rate 52 L 52 L 54 L Respiratory Rate 16 Blood Pressure 153/70 H Pulse Oximetry 95 07/22/18 04:00 07/22/18 05:00 07/22/18 06:00 Temperature Pulse Rate 54 L 52 L 50 L Respiratory Rate Blood Pressure Pulse Oximetry 07/22/18 07:00 07/22/18 08:00 07/22/18 09:00 Temperature 98.0 F Pulse Rate 66 53 L 57 L Respiratory Rate 16 Blood Pressure 151/74 H Pulse Oximetry 99 07/22/18 10:00 07/22/18 11:00 07/22/18 11:10 Temperature 97.9 F Pulse Rate 57 L 54 L 54 L Respiratory Rate 16 Blood Pressure 144/63 H Pulse Oximetry 94 L 07/22/18 11:12 07/22/18 12:00 07/22/18 13:00 Temperature 97.9 F Pulse Rate 54 L 59 L 51 L Respiratory Rate 16 Blood Pressure 144/63 H Pulse Oximetry 94 L Intake & Output 07/21/18 07/22/18 07/22/18 18:59 06:59 18:59 Intake Total 2480 / 2480 1340 / 1340 110 / 110 Balance 2480 / 2480 1340 / 1340 110 / 110 Weight 59 kg Intake: IV 1999 1100 / 1100 110 / 110 NS Inj 1,000 ML @ 125 mls/hr IV 1999 1100 / 1100 .CONT .Q8H [facility] Rx#:[id number] Venofer Inj 200 MG In NS Inj 110 / 110 100 ML @ 110 mls/hr IV.SIG DAILY MARCIA Rx#:[id number] Oral 480 / 480 240 / 240 Other: # Voids 1 1 Date of Last Bowel Movement 07/20/18 07/21/18 # Bowel Movements 1 Result Diagrams: 07/22/18 21:30 07/22/18 03:16 Laboratory Results: Laboratory Results - last 24 hr 07/21/18 07/21/18 07/21/18 16:36 17:47 18:01 WBC 7.1 RBC 3.75 L Hgb 9.5 L Hct 29.6 L MCV 79.1 L MCH 25.3 L MCHC 32.0 RDW 15.5 Plt Count 238 MPV 7.5 Neut % (Auto) 79.1 H Lymph % (Auto) 11.6 [place] % (Auto) 8.0 Eos % (Auto) 0.1 Baso % (Auto) 1.2 Neut # (Auto) 5.6 Lymph # (Auto) 0.8 L [place] # (Auto) 0.6 Eos # (Auto) 0.0 Baso # (Auto) 0.1 WBC Differential . Differential Comment Auto diff final Sodium Potassium Chloride Carbon Dioxide Anion Gap BUN Creatinine Estimated GFR POC Glucose 292 H Random Glucose Calcium Total Bilirubin AST ALT Alkaline Phosphatase Total Protein Albumin MTS Gel Crossmatch See Detail Bld Prod Order Comment 07/21/18 07/22/18 07/22/18 20:05 03:16 03:16 WBC 7.1 RBC 3.00 L Hgb 7.7 L Hct 23.4 L MCV 77.8 L MCH 25.7 L MCHC 33.0 RDW 15.2 Plt Count 199 MPV 7.4 Neut % (Auto) 59.0 Lymph % (Auto) 19.8 [place] % (Auto) 17.5 H Eos % (Auto) 2.3 Baso % (Auto) 1.4 Neut # (Auto) 4.2 Lymph # (Auto) 1.4 [place] # (Auto) 1.2 H Eos # (Auto) 0.2 Baso # (Auto) 0.1 WBC Differential . Differential Comment Auto diff final Sodium 138 Potassium 3.7 Chloride 105 Carbon Dioxide 24.0 Anion Gap 9 BUN 34 H Creatinine 1.29 H Estimated GFR 40 L POC Glucose 369 H Random Glucose 62 L D Calcium 8.4 L Total Bilirubin 0.7 AST 42 H ALT 68 H Alkaline Phosphatase 161 H Total Protein 6.3 L D Albumin 2.8 L MTS Gel Crossmatch Bld Prod Order Comment 07/22/18 07/22/18 07/22/18 03:45 05:47 07:33 WBC RBC Hgb Hct MCV MCH MCHC RDW Plt Count MPV Neut % (Auto) Lymph % (Auto) [place] % (Auto) Eos % (Auto) Baso % (Auto) Neut # (Auto) Lymph # (Auto) [place] # (Auto) Eos # (Auto) Baso # (Auto) WBC Differential Differential Comment Sodium Potassium Chloride Carbon Dioxide Anion Gap BUN Creatinine Estimated GFR POC Glucose 66 L 171 H 145 H Random Glucose Calcium Total Bilirubin AST ALT Alkaline Phosphatase Total Protein Albumin MTS Gel Crossmatch Bld Prod Order Comment 07/22/18 07/22/18 11:17 13:38 WBC RBC Hgb Hct MCV MCH MCHC RDW Plt Count MPV Neut % (Auto) Lymph % (Auto) [place] % (Auto) Eos % (Auto) Baso % (Auto) Neut # (Auto) Lymph # (Auto) [place] # (Auto) Eos # (Auto) Baso # (Auto) WBC Differential Differential Comment Sodium Potassium Chloride Carbon Dioxide Anion Gap BUN Creatinine Estimated GFR POC Glucose 85 Random Glucose Calcium Total Bilirubin AST ALT Alkaline Phosphatase Total Protein Albumin MTS Gel Crossmatch See Detail Bld Prod Order Comment Cancelled Medications: Active Medications Generic Name Dose Route Start Last Admin Trade Name Freq PRN Reason Stop Dose Admin Dextrose 50 ml 07/21/18 08:39 07/22/18 05:16 D50w Vial IV.PUSH 50 ml UNSCH PRN Administration PER HYPOGLYCEMIA PROTOCOL Sodium Chloride 1,000 mls @ 125 mls/hr 07/20/18 17:00 07/22/18 11:35 Ns Inj IV.CONT Not Given .Q8H MARCIA Sodium Chloride 500 mls @ 30 mls/hr 07/21/18 04:00 07/22/18 10:00 Ns Inj IV.SIG Not Given .Q10H [facility]IA Iron Sucrose 200 mg/ Sodium 110 mls @ 110 mls/hr 07/22/18 09:00 07/22/18 12: 57 Chloride IV.SIG 07/24/18 09:59 Infused DAILY MARCIA Infusion Diltiazem HCl 125 mg/ Sodium 125 mls @ 5 mls/hr 07/21/18 17:31 07/21/18 17:54 Chloride IV.CONT 5 mg/hr TITRATE PRN 5 mls/hr Per Protocol Administration Protocol 5 MG/HR Dextrose/Sodium Chloride 1,000 mls @ 125 mls/hr 07/22/18 06:15 07/22/18 06:24 D5w/Normal Saline Inj IV.CONT 125 mls/hr .Q8H [facility] Administration Insulin Aspart 0 unit 07/21/18 12:00 07/22/18 11:36 Novolog Insulin Correctional Sugar Inj SQ Not Given ACHS [facility] Protocol Insulin Aspart 3 units 07/21/18 12:00 07/22/18 11:36 Novolog Inj SQ Not Given TIDAC [facility] Insulin Detemir 10 unit 07/21/18 21:00 07/21/18 21:44 Levemir Inj SQ 10 unit HS [facility] Administration Levothyroxine Sodium 75 mcg 07/21/18 06:00 07/22/18 05:19 Synthroid PO 75 mcg DAILY@0600 [facility] Administration Metoprolol Tartrate 25 mg 07/21/18 13:00 07/22/18 12:11 Lopressor PO 25 mg TID [facility] Administration Metoprolol Tartrate 5 mg 07/21/18 12:50 07/21/18 16:53 Lopressor Inj IV.PUSH 5 mg Q5M PRN Administration Afib Sodium Chloride 2 ml 07/20/18 21:00 07/22/18 11:35 Ns Flush IV.FLUSH Not Given BID [facility] Objective Remarks: GENERAL: Thin elderly female patient, in no acute distress. SKIN: Warm and dry. HEAD: Normocephalic. EYES: No scleral icterus. No injection or drainage. MOUTH: Right lateral tongue postsurgical changes. NECK: Supple, trachea midline. CARDIOVASCULAR: Regular rate and rhythm without murmurs. RESPIRATORY: Breath sounds clear, equal bilaterally. Nonlabored at rest. GASTROINTESTINAL: Abdomen soft, non-tender, nondistended. +BS. EXTREMITIES: No cyanosis, or edema. MUSCULOSKELETAL: Adequate muscle tone. NEUROLOGICAL: No obvious focal deficit. Awake, alert, and oriented x3. PSYCHIATRIC: Appropriate mood and affect; insight and judgment normal. Assessment/Plan - Plan Ms. Hardin is a pleasant 73-year-old female patient, currently hospitalized with acute gastrointestinal bleeding. Hematology was consulted for iron deficiency anemia with associated GI bleed. 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 She also has a history of atrial fibrillation, CAD, hypertension diabetes and TIAs. Plan: 1. Iron deficiency anemia, currently with GI bleed. We will transfuse Venofer 200 mg IV daily times 3 days. We may extend this dose to total 1 gm. 2. GI bleed, continues. Management per GI. Patient pending 1 unit PRBCs today for hemoglobin of 7.7. 3. Continue to monitor CBC. Continue supportive care. - Attending Statement The exam, history, and the medical decision-making described in the above note were completed with the assistance of the mid-level provider. I reviewed and agree with the findings presented. I attest that I had a [id number] encounter with the patient on the same day, and personally performed and documented my assessment and findings in the medical record. The patient continues to bleed. She showed me her stool and it contains blood. She is scheduled for colonoscopy tomorrow. Rate appears well controlled. Will continue IV iron. Appreciate GI, cardiology, and medicine. Unfortunately she cannot be anticoagulated presently.
--- NOTE | 2018-07-22 16:24 | P.PN ---
Subjective Interval history: Follow up for GI bleed anemia, Atrial fibrillation. Attempted to see patient this afternoon. 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 Discussed with patient's . Went back to see patient. Patient is currently doing well. No acute concerns. Tolerating diet well. Physical Exam Vital signs: Vital Signs 07/21/18 17:09 07/21/18 18:02 07/21/18 18:18 Temperature Pulse Rate 153 H 145 H 130 H Respiratory Rate 18 Blood Pressure 110/57 L 90/60 L 81/52 L Pulse Oximetry 96 07/21/18 18:22 07/21/18 18:25 07/21/18 18:30 Temperature Pulse Rate 139 H 59 L 59 L Respiratory Rate Blood Pressure 110/60 Pulse Oximetry 07/21/18 19:00 07/21/18 20:00 07/21/18 21:00 Temperature 98.4 F Pulse Rate 54 L 56 L 58 L Respiratory Rate 16 Blood Pressure 128/60 Pulse Oximetry 97 07/21/18 22:00 07/21/18 23:00 07/22/18 00:00 Temperature 97.9 F Pulse Rate 56 L 52 L 54 L Respiratory Rate 16 Blood Pressure 132/60 Pulse Oximetry 97 07/22/18 01:00 07/22/18 02:00 07/22/18 03:00 Temperature 98.3 F Pulse Rate 52 L 52 L 54 L Respiratory Rate 16 Blood Pressure 153/70 H Pulse Oximetry 95 07/22/18 04:00 07/22/18 05:00 07/22/18 06:00 Temperature Pulse Rate 54 L 52 L 50 L Respiratory Rate Blood Pressure Pulse Oximetry 07/22/18 07:00 07/22/18 08:00 07/22/18 09:00 Temperature 98.0 F Pulse Rate 66 53 L 57 L Respiratory Rate 16 Blood Pressure 151/74 H Pulse Oximetry 99 07/22/18 10:00 07/22/18 11:00 07/22/18 11:10 Temperature 97.9 F Pulse Rate 57 L 54 L 54 L Respiratory Rate 16 Blood Pressure 144/63 H Pulse Oximetry 94 L 07/22/18 11:12 07/22/18 12:00 07/22/18 13:00 Temperature 97.9 F Pulse Rate 54 L 59 L 51 L Respiratory Rate 16 Blood Pressure 144/63 H Pulse Oximetry 94 L 07/22/18 14:00 07/22/18 16:00 Temperature Pulse Rate 59 L 54 L Respiratory Rate Blood Pressure Pulse Oximetry Intake & Output 07/21/18 07/22/18 07/22/18 18:59 06:59 18:59 Intake Total 2480 / 2480 1340 / 1340 1110 / 1110 Balance 2480 / 2480 1340 / 1340 1110 / 1110 Weight 59 kg Intake: IV 1999 1100 / 1100 1110 / 1110 D5W/Normal Saline Inj 1,000 ML 1000 / 1000 @ 125 mls/hr IV.CONT .Q8H [facility] Rx#:[id number] NS Inj 1,000 ML @ 125 mls/hr IV 1999 / 1999 1100 / 1100 .CONT .Q8H [facility] Rx#:[id number] Venofer Inj 200 MG In NS Inj 110 / 110 100 ML @ 110 mls/hr IV.SIG DAILY [facility]IA Rx#:[id number] Oral 480 / 480 240 / 240 Other: # Voids 1 1 Date of Last Bowel Movement 07/20/18 07/21/18 # Bowel Movements 1 Narrative: GENERAL: Alert, oriented x 3, NAD. SKIN: Warm and dry. HEAD: Normocephalic. EYES: No scleral icterus. No injection or drainage. NECK: Supple, trachea midline. No JVD or lymphadenopathy. CARDIOVASCULAR: Reg Rate and Rhythm, gallops, or rubs. RESPIRATORY: Breath sounds equal bilaterally. No accessory muscle use. GASTROINTESTINAL: Abdomen soft, non-tender, nondistended. MUSCULOSKELETAL: No cyanosis, or edema. BACK: Nontender without obvious deformity. No CVA tenderness. Results - Labs CBC & Chem 7: 07/22/18 03:16 07/22/18 03:16 Laboratory Results - last 24 hr 07/21/18 07/21/18 07/21/18 16:36 17:47 18:01 WBC 7.1 RBC 3.75 L Hgb 9.5 L Hct 29.6 L MCV 79.1 L MCH 25.3 L MCHC 32.0 RDW 15.5 Plt Count 238 MPV 7.5 Neut % (Auto) 79.1 H Lymph % (Auto) 11.6 [place] % (Auto) 8.0 Eos % (Auto) 0.1 Baso % (Auto) 1.2 Neut # (Auto) 5.6 Lymph # (Auto) 0.8 L [place] # (Auto) 0.6 Eos # (Auto) 0.0 Baso # (Auto) 0.1 WBC Differential . Differential Comment Auto diff final Sodium Potassium Chloride Carbon Dioxide Anion Gap BUN Creatinine Estimated GFR POC Glucose 292 H Random Glucose Calcium Total Bilirubin AST ALT Alkaline Phosphatase Total Protein Albumin MTS Gel Crossmatch See Detail Bld Prod Order Comment 07/21/18 07/22/18 07/22/18 20:05 03:16 03:16 WBC 7.1 RBC 3.00 L Hgb 7.7 L Hct 23.4 L MCV 77.8 L MCH 25.7 L MCHC 33.0 RDW 15.2 Plt Count 199 MPV 7.4 Neut % (Auto) 59.0 Lymph % (Auto) 19.8 [place] % (Auto) 17.5 H Eos % (Auto) 2.3 Baso % (Auto) 1.4 Neut # (Auto) 4.2 Lymph # (Auto) 1.4 [place] # (Auto) 1.2 H Eos # (Auto) 0.2 Baso # (Auto) 0.1 WBC Differential . Differential Comment Auto diff final Sodium 138 Potassium 3.7 Chloride 105 Carbon Dioxide 24.0 Anion Gap 9 BUN 34 H Creatinine 1.29 H Estimated GFR 40 L POC Glucose 369 H Random Glucose 62 L D Calcium 8.4 L Total Bilirubin 0.7 AST 42 H ALT 68 H Alkaline Phosphatase 161 H Total Protein 6.3 L D Albumin 2.8 L MTS Gel Crossmatch Bld Prod Order Comment 07/22/18 07/22/18 07/22/18 03:45 05:47 07:33 WBC RBC Hgb Hct MCV MCH MCHC RDW Plt Count MPV Neut % (Auto) Lymph % (Auto) [place] % (Auto) Eos % (Auto) Baso % (Auto) Neut # (Auto) Lymph # (Auto) [place] # (Auto) Eos # (Auto) Baso # (Auto) WBC Differential Differential Comment Sodium Potassium Chloride Carbon Dioxide Anion Gap BUN Creatinine Estimated GFR POC Glucose 66 L 171 H 145 H Random Glucose Calcium Total Bilirubin AST ALT Alkaline Phosphatase Total Protein Albumin MTS Gel Crossmatch Bld Prod Order Comment 07/22/18 07/22/18 11:17 13:38 WBC RBC Hgb Hct MCV MCH MCHC RDW Plt Count MPV Neut % (Auto) Lymph % (Auto) [place] % (Auto) Eos % (Auto) Baso % (Auto) Neut # (Auto) Lymph # (Auto) [place] # (Auto) Eos # (Auto) Baso # (Auto) WBC Differential Differential Comment Sodium Potassium Chloride Carbon Dioxide Anion Gap BUN Creatinine Estimated GFR POC Glucose 85 Random Glucose Calcium Total Bilirubin AST ALT Alkaline Phosphatase Total Protein Albumin MTS Gel Crossmatch See Detail Bld Prod Order Comment Cancelled Assessment and Plan - Plan This patient is a 73-year-old female with a diagnosis of atrial fibrillation on Xarelto, status post ablation x2, coronary artery disease status post stent placement, history of TIA, 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 She presents to our emergency department today with complaints of fatigue and black tarry stools that have been ongoing for the past 1 week prior to this admission. GI was consulted. Acute GI blood loss anemia -On protonix drip. This can likely be changed to IV push or PO. -EGD today 07/22/2018 shows esophagitis in the distal esophagus. -Patient received blood transfusion. Hgb 9.5 --> 7.7 today. -NM bleeding scan shows no evidence of bleed. -Labs in the AM. Atrial fibrillation with RVR -Patient is currently on Cardizem drip and cardiology consulted. -Hold Anticoagulation for now. -Continue Metoprolol PO. Diabetes mellitus Hypothyroidism - Continue Levemir and sliding scale insulin - Continue Levothyroxine 75mcg Qday. Full code. Avoid Lovenox/Heparin for now.
--- NOTE | 2018-07-22 16:43 | NM ---
EXAM DATE: 07/22/2018 12:25 PM EDT AGE/SEX: 73 years / Female INDICATIONS: Melena stools. CLINICAL DATA: This is the patient's initial encounter. Patient reports that signs and symptoms have been present for 1 week and indicates a pain score of 0/10. MEDICAL/SURGICAL HISTORY: Anemia. Diabetes. Hypertension. A-fib, coronary artery disease, gl aucoma, hyponatremia, hypothyroid, renal failure, squamous cell carcinoma of tongue, transient ischem ic attack, and restless leg syndrome. . Cardiac ablation. COMPARISON: No prior exams available for comparison. TECHNIQUE: Following the modified in vitro labeling of autologous red cells, dynamic continuous image s were acquired for two hours. ?? DOSE: 20.5 mCi Tc 99m Ultratag Labeled Red Blood Cells IV IMAGING TIME: 2 hr FINDINGS: Biodistribution: There is a very good labeling of red cells without significant uptake in the gastri c wall. There is good delineation of the blood pool of the spleen and abdominal vessels. Bleeding: No episodes of active GI bleeding are observed during two hours of continuous observation . CONCLUSION: 1. No episodes of active GI bleeding observed. Electronically signed by: Navarro Conner MD 07/22/2018 4:42 PM EDT
[2018-07-22] MEDS ORDERED: hydrALAZINE HCl Inj 20 MG/ML Vial IV.PUSH ONE (20:30)
[2018-07-22] MEDS: Insulin Detemir Inj 1,000 UNIT/10 ML Vial SQ SCH (21:32)
[2018-07-22 21:38] LABS: Hematocrit 30.5 % (35.0-46.0); Hemoglobin 9.6 gm/dL (11.6-15.3)
[2018-07-23] MEDS: Sod Chloride 0.9% Inj 1,000 ML IV.CONT SCH ×3 (00:44→16:25)
[2018-07-23 05:14] LABS: Baso # (Auto) 0.1 th/mm3 (0.0-0.2); Baso % (Auto) 1.6 % (0.0-2.0); Eos # (Auto) 0.4 th/mm3 (0.0-0.4); Eos % (Auto) 6.2 % (0.0-4.0); Hematocrit 26.4 % (35.0-46.0); Lymph % (Auto) 16.1 % (9.0-44.0); Mean Corpuscular Hemoglobin 26.1 pg (27.0-34.0); Mean Corpuscular Volume 76.9 fL (80.0-100.0); Mean Platelet Volume 7.1 fL (7.0-11.0); Mono % (Auto) 15.7 % (0.0-8.0); Neut # (Auto) 3.7 th/mm3 (1.8-7.7); Neut % (Auto) 60.4 % (16.0-70.0); Platelet Count 208 th/mm3 (150-450); Red Blood Count 3.44 mil/mm3 (4.00-5.30); Red Cell Distribution Width 15.5 % (11.6-17.2); White Blood Count 6.1 th/mm3 (4.0-11.0)
[2018-07-23] MEDS: Metoprolol Inj 5 MG/5 ML Vial IV.PUSH PRN ×5 (06:02→11:15)
[2018-07-23] MEDS: Levothyroxine 75 MCG Tablet PO SCH (06:32)
[2018-07-23] MEDS: Dextrose 5%/NaCl 0.9% Inj 1,000 ML IV.CONT SCH ×2 (06:40→14:44)
[2018-07-23] MEDS: Metoprolol Tartrate 25 MG Tablet PO SCH ×3 (08:46→20:17)
[2018-07-23] MEDS: Iron Sucrose Inj 200 MG in Sodium Chlor 0.9% Inj 100 ML IV.SIG SCH (08:46)
[2018-07-23] MEDS: Insulin NovoLOG Aspart Correctional Sugar Inj SQ SCH ×4 (08:46→20:49)
--- NOTE | 2018-07-23 13:57 | CT ---
EXAM DATE: 07/23/2018 1:11 PM EDT AGE/SEX: 73 years / Female INDICATIONS: Abdominal pain. CLINICAL DATA: This is the patient's initial encounter. Patient reports that signs and symptoms have been present for 1 day and indicates a pain score of 2/10. MEDICAL/SURGICAL HISTORY: Dementia. Hypertension. Transient ischemic attack. Coronary artery disease. None. RADIATION DOSE: 6.57 CTDI (mGy) COMPARISON: No prior exams available for comparison. TECHNIQUE: Multiple contiguous axial images were obtained through the abdomen. Images were obtained using multiple row detector helical technique. Using automated exposure control and adjustment of the mA and/or kV according to patient size, radiation dose was kept as low as reasonably achievable to o btain optimal diagnostic quality images. DICOM format image data is available electronically for rev iew and comparison. FINDINGS: [id number] bilateral pleural effusions, slightly worse on the right with basilar atelectasis a nd consolidation. Trace pericardial fluid. No acute findings in the liver, spleen, adrenals or pancreas. Kidneys are mildly atrophic. There is mild ascites. No bowel obstruction. No free air. Mild anasarca. No acute bony abnormalities. CONCLUSION: 1. Mild to moderate bilateral pleural effusions, right greater than left with basilar atelectasis. 2. Mild ascites and anasarca. No bowel obstruction or free air. Extensive atherosclerotic disease in the aorta and branches without aneurysm Electronically signed by: Wiliam Gutierrez MD 07/23/2018 1:56 PM EDT
--- NOTE | 2018-07-23 14:40 | P.PNGI ---
Subjective Interval history: Patient sitting up in bed. Colonoscopy rescheduled for the a.m. due to atrial fibrillation rate 120s 130s. Patient denies any discomfort, on clear liquid diet <Blank Mireles - Last Filed: 07/23/18 14:33> Physical Exam Vital signs: Vital Signs 07/22/18 16:00 07/22/18 16:59 07/22/18 17:00 Temperature 98.2 F Pulse Rate 54 L 59 L 58 L Respiratory Rate 16 Blood Pressure 161/72 H Pulse Oximetry 95 07/22/18 17:16 07/22/18 18:00 07/22/18 19:00 Temperature 98.1 F 97.8 F Pulse Rate 62 55 L 54 L Respiratory Rate 16 16 Blood Pressure 157/65 H 165/62 H Pulse Oximetry 97 07/22/18 20:00 07/22/18 20:32 07/22/18 21:00 Temperature 97.8 F Pulse Rate 56 L 55 L 54 L Respiratory Rate 16 Blood Pressure 195/83 H Pulse Oximetry 97 07/22/18 22:00 07/22/18 23:00 07/23/18 00:00 Temperature 97.5 F L Pulse Rate 56 L 55 L 53 L Respiratory Rate 16 Blood Pressure 153/68 H Pulse Oximetry 07/23/18 01:00 07/23/18 02:00 07/23/18 03:00 Temperature 98 F Pulse Rate 56 L 57 L 60 Respiratory Rate 16 Blood Pressure 156/70 H Pulse Oximetry 07/23/18 04:00 07/23/18 05:00 07/23/18 06:00 Temperature Pulse Rate 60 57 L 128 H Respiratory Rate Blood Pressure Pulse Oximetry 07/23/18 06:41 07/23/18 07:00 07/23/18 08:00 Temperature 98.3 F Pulse Rate 114 H 134 H 119 H Respiratory Rate 16 Blood Pressure 121/71 143/72 H Pulse Oximetry 97 07/23/18 09:00 07/23/18 09:16 07/23/18 10:00 Temperature Pulse Rate 115 H 124 H 114 H Respiratory Rate Blood Pressure Pulse Oximetry 07/23/18 10:31 07/23/18 11:00 07/23/18 12:00 Temperature 98.0 F Pulse Rate 121 H 110 H 112 H Respiratory Rate 18 16 Blood Pressure 143/74 H 158/91 H Pulse Oximetry 95 98 07/23/18 13:00 07/23/18 14:00 Temperature Pulse Rate 126 H 127 H Respiratory Rate Blood Pressure Pulse Oximetry Intake & Output 07/22/18 07/23/18 07/23/18 18:59 06:59 18:59 Intake Total 1989 2900 / 2900 235 / 235 Output Total 650 / 650 2900 / 2900 Balance 1340 / 1340 0 / 0 235 / 235 Weight 61 kg Intake: IV 1110 / 1110 1000 / 1000 235 / 235 D5W/Normal Saline Inj 1,000 ML 1000 / 1000 1000 / 1000 @ 125 mls/hr IV.CONT .Q8H [facility] Rx#:[id number] Cardizem Inj 125 MG In NS Inj 125 / 125 100 ML @ 5 MG/HR 5 mls/hr IV. CONT TITRATE PRN Rx#:[id number] Venofer Inj 200 MG In NS Inj 110 / 110 110 / 110 100 ML @ 110 mls/hr IV.SIG DAILY [facility] Rx#:[id number] Oral 880 / 880 1500 / 1500 Intake (Blood Product) Amt 0 / 0 400 / 400 Rbc As-3 Leukoreduced Unit 0 / 0 400 / 400 [id number] Output: Urine 650 / 650 Urine/Stool Mix 2900 / 2900 Other: Date of Last Bowel Movement 07/22/18 07/23/18 # Bowel Movements 1 - Constitutional no acute distress - Routine HEENT Exam Head: Present: normocephalic - Routine Respiratory Exam Present: CTA bilaterally. Absent: accessory muscle use - Routine Cardiovascular Exam Absent: irregularly irregular Comments: A. fib at a rate of 115-118 - Routine Abdominal Exam Present: soft, normoactive bowel sounds. Absent: tenderness - Routine Skin Exam Present: dry, warm - Routine Neurological Exam Present: alert - Routine Psychiatric Exam Present: normal affect, cooperative <Mireles,Blank - Last Filed: 07/23/18 14:33> Vital signs: Vital Signs 07/22/18 16:00 07/22/18 16:59 07/22/18 17:00 Temperature 98.2 F Pulse Rate 54 L 59 L 58 L Respiratory Rate 16 Blood Pressure 161/72 H Pulse Oximetry 95 07/22/18 17:16 07/22/18 18:00 07/22/18 19:00 Temperature 98.1 F 97.8 F Pulse Rate 62 55 L 54 L Respiratory Rate 16 16 Blood Pressure 157/65 H 165/62 H Pulse Oximetry 97 07/22/18 20:00 07/22/18 20:32 07/22/18 21:00 Temperature 97.8 F Pulse Rate 56 L 55 L 54 L Respiratory Rate 16 Blood Pressure 195/83 H Pulse Oximetry 97 07/22/18 22:00 07/22/18 23:00 07/23/18 00:00 Temperature 97.5 F L Pulse Rate 56 L 55 L 53 L Respiratory Rate 16 Blood Pressure 153/68 H Pulse Oximetry 07/23/18 01:00 07/23/18 02:00 07/23/18 03:00 Temperature 98 F Pulse Rate 56 L 57 L 60 Respiratory Rate 16 Blood Pressure 156/70 H Pulse Oximetry 07/23/18 04:00 07/23/18 05:00 07/23/18 06:00 Temperature Pulse Rate 60 57 L 128 H Respiratory Rate Blood Pressure Pulse Oximetry 07/23/18 06:41 07/23/18 07:00 07/23/18 08:00 Temperature 98.3 F Pulse Rate 114 H 134 H 119 H Respiratory Rate 16 Blood Pressure 121/71 143/72 H Pulse Oximetry 97 07/23/18 09:00 07/23/18 09:16 07/23/18 10:00 Temperature Pulse Rate 115 H 124 H 114 H Respiratory Rate Blood Pressure Pulse Oximetry 07/23/18 10:31 07/23/18 11:00 07/23/18 12:00 Temperature 98.0 F Pulse Rate 121 H 110 H 112 H Respiratory Rate 18 16 Blood Pressure 143/74 H 158/91 H Pulse Oximetry 95 98 07/23/18 13:00 07/23/18 14:00 07/23/18 15:00 Temperature 97.6 F Pulse Rate 126 H 127 H 127 H Respiratory Rate 16 Blood Pressure 156/90 H Pulse Oximetry 99 Intake & Output 07/22/18 07/23/18 07/23/18 18:59 06:59 18:59 Intake Total 1989 2900 / 2900 1235 / 1235 Output Total 650 / 650 2900 / 2900 Balance 1340 / 1340 0 / 0 1235 / 1235 Weight 61 kg Intake: IV 1110 / 1110 1000 / 1000 1235 / 1235 D5W/Normal Saline Inj 1,000 ML 1000 / 1000 1000 / 1000 1000 / 1000 @ 125 mls/hr IV.CONT .Q8H [facility] Rx#:[id number] Cardizem Inj 125 MG In NS Inj 125 / 125 100 ML @ 5 MG/HR 5 mls/hr IV. CONT TITRATE PRN Rx#:[id number] Venofer Inj 200 MG In NS Inj 110 / 110 110 / 110 100 ML @ 110 mls/hr IV.SIG DAILY [facility] Rx#:[id number] Oral 880 / 880 1500 / 1500 Intake (Blood Product) Amt 0 / 0 400 / 400 Rbc As-3 Leukoreduced Unit 0 / 0 400 / 400 [id number] Output: Urine 650 / 650 Urine/Stool Mix 2900 / 2900 Other: Date of Last Bowel Movement 07/22/18 07/23/18 # Bowel Movements 1 <Olivia Diamond - Last Filed: 07/23/18 15:44> Results - Labs CBC & Chem 7: 07/23/18 04:46 07/22/18 03:16 Laboratory Results - last 24 hr 07/21/18 07/22/18 07/22/18 16:36 16:40 20:45 WBC RBC Hgb Hct MCV MCH MCHC RDW Plt Count MPV Neut % (Auto) Lymph % (Auto) [place] % (Auto) Eos % (Auto) Baso % (Auto) Neut # (Auto) Lymph # (Auto) [place] # (Auto) Eos # (Auto) Baso # (Auto) WBC Differential Differential Comment POC Glucose 123 H 202 H MTS Gel Crossmatch See Detail 07/22/18 07/23/18 07/23/18 21:30 04:46 08:44 WBC 6.1 RBC 3.44 L Hgb 9.6 L 9.0 L Hct 30.5 L 26.4 L MCV 76.9 L MCH 26.1 L MCHC 34.0 RDW 15.5 Plt Count 208 MPV 7.1 Neut % (Auto) 60.4 Lymph % (Auto) 16.1 [place] % (Auto) 15.7 H Eos % (Auto) 6.2 H Baso % (Auto) 1.6 Neut # (Auto) 3.7 Lymph # (Auto) 1.0 [place] # (Auto) 1.0 H Eos # (Auto) 0.4 Baso # (Auto) 0.1 WBC Differential . Differential Comment Auto diff final POC Glucose 191 H MTS Gel Crossmatch 07/23/18 07/23/18 11:55 13:33 WBC RBC Hgb Hct MCV MCH MCHC RDW Plt Count MPV Neut % (Auto) Lymph % (Auto) [place] % (Auto) Eos % (Auto) Baso % (Auto) Neut # (Auto) Lymph # (Auto) [place] # (Auto) Eos # (Auto) Baso # (Auto) WBC Differential Differential Comment POC Glucose 111 H 52 L MTS Gel Crossmatch - Imaging Impressions GI Bleed Scan Nuclear Medicine 07/22/18 00:00 CONCLUSION: 1. No episodes of active GI bleeding observed. Abdomen/Pelvis CT 07/23/18 00:00 CONCLUSION: 1. Mild to moderate bilateral pleural effusions, right greater than left with basilar atelectasis. 2. Mild ascites and anasarca. No bowel obstruction or free air. Extensive atherosclerotic disease in the aorta and branches without aneurysm <Blank Mireles - Last Filed: 07/23/18 14:33> - Labs CBC & Chem 7: 07/23/18 04:46 07/22/18 03:16 Laboratory Results - last 24 hr 07/21/18 07/22/18 07/22/18 16:36 16:40 20:45 WBC RBC Hgb Hct MCV MCH MCHC RDW Plt Count MPV Neut % (Auto) Lymph % (Auto) [place] % (Auto) Eos % (Auto) Baso % (Auto) Neut # (Auto) Lymph # (Auto) [place] # (Auto) Eos # (Auto) Baso # (Auto) WBC Differential Differential Comment POC Glucose 123 H 202 H MTS Gel Crossmatch See Detail 07/22/18 07/23/18 07/23/18 21:30 04:46 08:44 WBC 6.1 RBC 3.44 L Hgb 9.6 L 9.0 L Hct 30.5 L 26.4 L MCV 76.9 L MCH 26.1 L MCHC 34.0 RDW 15.5 Plt Count 208 MPV 7.1 Neut % (Auto) 60.4 Lymph % (Auto) 16.1 [place] % (Auto) 15.7 H Eos % (Auto) 6.2 H Baso % (Auto) 1.6 Neut # (Auto) 3.7 Lymph # (Auto) 1.0 [place] # (Auto) 1.0 H Eos # (Auto) 0.4 Baso # (Auto) 0.1 WBC Differential . Differential Comment Auto diff final POC Glucose 191 H MTS Gel Crossmatch 07/23/18 07/23/18 11:55 13:33 WBC RBC Hgb Hct MCV MCH MCHC RDW Plt Count MPV Neut % (Auto) Lymph % (Auto) [place] % (Auto) Eos % (Auto) Baso % (Auto) Neut # (Auto) Lymph # (Auto) [place] # (Auto) Eos # (Auto) Baso # (Auto) WBC Differential Differential Comment POC Glucose 111 H 52 L MTS Gel Crossmatch - Imaging Impressions GI Bleed Scan Nuclear Medicine 07/22/18 00:00 CONCLUSION: 1. No episodes of active GI bleeding observed. Abdomen/Pelvis CT 07/23/18 00:00 CONCLUSION: 1. Mild to moderate bilateral pleural effusions, right greater than left with basilar atelectasis. 2. Mild ascites and anasarca. No bowel obstruction or free air. Extensive atherosclerotic disease in the aorta and branches without aneurysm <Olivia Diamond - Last Filed: 07/23/18 15:44> Assessment and Plan - Plan 73-year-old female who presented to the hospital on 07/20/2018 with weakness and fatigue for approximately a week and a half and melena stools for approximately 1 week. Patient notes she does have a history of constipation and does admit to some straining but does not take any usual medications for any bowel regimen. Aggregating factors could be related to p.o. iron supplements. Patient states appetite is good and she denies any current nausea vomiting or dyspepsia. 24 hours ago patient did have fairly large bowel movement which was noted to be more maroon in color but denies any current abdominal pain or cramping. Patient denies any family history of colon cancer and states endoscopy done approximately 9 years ago. Patient notes recent colonoscopy with Dr. Kang in January 2018 which showed large polyp. Current labs show initial hemoglobin on admission 6.5 and then repeated to be 5.8 patient had transfusion. Other labs reviewed was PT/INR 1.1, bilirubin 0.5, AST 52, ALT 88, and alkaline phosphatase 217. Patient has been on Xarelto since 2013 for her atrial fibrillation and denies any previous history of any GI bleeding. Patient notes recent hospital stay at [facility] , was evaluated and found UTI and was also treated for hyponatremia. Gastroenterology was consulted to assist with her current GI symptoms with melena stools and symptomatic anemia as well as develop per plan of care. Symptomatic anemia, symptoms of dark melena stools, but noted maroon colored stool over the past 24 hours x1 Aggregating factors could be related to his Xarelto which patient has been taken since 2013 History of constipation which could be related to iron supplements patient does note straining with bowel movements Recent hospital stay at [facility] for UTI and hyponatremia 06/20-06/2407/23/2018 Reporting one bowel movement this morning, color unchanged. Plan colonoscopy rescheduled due to patient's atrial fibrillation with a rate in the 130s. Hemoglobin 9.0 hematocrit 26.4 stable Colonoscopy rescheduled for tomorrow Plan -Clear liquid diet for dinner -N.p.o. after midnight -Colonoscopy tomorrow -Monitor for bleeding -Transfuse if required -Continue PPI -Supportive care -Further recommendations to follow based on patient status and findings Patient was seen per myself and Dr. Diamond, note was written on her behalf - Attending Attestation Dr. Diamond <Blank Mireles - Last Filed: 07/23/18 14:33> - Attending Attestation seen, examined agree with above <Olivia Diamond - Last Filed: 07/23/18 15:44>
--- NOTE | 2018-07-23 16:46 | P.PNCA ---
Subjective Interval history: Patient denies any chest pain, pressure, palpitations, dizziness, edema or shortness of breath. Patient is a little upset due to the fact that they had to reschedule her colonoscopy. Medications and Allergies Allergies Allergy/AdvReac Type Severity Reaction Status Date / Time amlodipine Allergy Unknown Ankle Verified 07/20/18 14:15 swelling morphine Allergy Unknown Vomiting Verified 07/20/18 14:15 Sulfa (Sulfonamide Allergy Unknown Stomach Verified 07/20/18 14:15 Antibiotics) upset digoxin Allergy Bradycardia Verified 07/20/18 14:19 dronedarone [From Multaq] Allergy Weakness Verified 07/20/18 14:19 furosemide [From Lasix] Allergy Weakness Verified 07/20/18 14:19 Iodinated Contrast- Oral and Allergy Itching Verified 07/20/18 14:19 IV Dye [Contrast] levofloxacin Allergy Joint Pain Verified 07/20/18 14:19 ciprofloxacin [From Cipro] AdvReac Nausea Verified 07/20/18 14:19 Home Medications Medication Instructions Recorded Confirmed Type aspirin 81 mg PO DAILY 07/20/18 07/20/18 History hydralazine 25 mg PO BID 07/20/18 07/20/18 History insulin glargine [Lantus U-100 10 unit SUBCUT DAILY 07/20/18 07/20/18 History Insulin] insulin lispro [Humalog U-100 1 sliding scale dose SUBCUT UD 07/20/18 07/20/18 History Insulin] irbesartan 150 mg PO DAILY 07/20/18 07/20/18 History levothyroxine 75 mcg PO DAILY 07/20/18 07/20/18 History metoprolol tartrate 25 mg PO HS 07/20/18 07/20/18 History rivaroxaban [Xarelto] 15 mg PO DAILY 07/20/18 07/20/18 History timolol 1 drp OPHTHALMIC (EYE) BID 07/20/18 07/20/18 History Active Medications: Active Medications Dextrose (D50w Vial) 50 ml IV.PUSH UNSCH PRN PRN Reason: PER HYPOGLYCEMIA PROTOCOL Last Admin: 07/22/18 05:16 Dose: 50 ml Glucagon (Glucagon Inj) 1 mg OTHER PRN PRN PRN Reason: for Hypoglycemia Protocol Pantoprazole Sodium 80 mg/ (Sodium Chloride) 100 mls @ 10 mls/hr IV.CONT CONT [facility] Sodium Chloride (Ns Inj) 1,000 mls @ 125 mls/hr IV.CONT .Q8H [facility] Last Admin: 07/23/18 16:25 Dose: Not Given Sodium Chloride (Ns Inj) 500 mls @ 30 mls/hr IV.SIG .Q10H [facility] Last Admin: 07/22/18 10:00 Dose: Not Given Iron Sucrose 200 mg/ Sodium (Chloride) 110 mls @ 110 mls/hr IV.SIG DAILY [facility] Stop: 07/24/18 09:59 Last Infusion: 07/23/18 13:05 Dose: Infused Diltiazem HCl 125 mg/ Sodium (Chloride) 125 mls @ 5 mls/hr IV.CONT TITRATE PRN ; Protocol PRN Reason: Per Protocol Last Titration: 07/23/18 07:05 Dose: Infused Dextrose/Sodium Chloride (D5w/Normal Saline Inj) 1,000 mls @ 125 mls/hr IV.CONT .Q8H [facility] Last Admin: 07/23/18 14:44 Dose: Not Given Insulin Aspart (Novolog Insulin Correctional Sugar Inj) 0 unit SQ ACHS [facility]; Protocol Last Admin: 07/23/18 16:24 Dose: Not Given Insulin Aspart (Novolog Inj) 3 units SQ TIDAC [facility] Last Admin: 07/23/18 16:24 Dose: Not Given Insulin Detemir (Levemir Inj) 10 unit SQ HS [facility] Last Admin: 07/22/18 21:32 Dose: 10 unit Levothyroxine Sodium (Synthroid) 75 mcg PO DAILY@0600 [facility] Last Admin: 07/23/18 06:32 Dose: 75 mcg Metoprolol Tartrate (Lopressor Inj) 5 mg IV.PUSH Q5M PRN PRN Reason: Afib Last Admin: 07/23/18 11:15 Dose: 5 mg Metoprolol Tartrate (Lopressor) 25 mg PO BID [facility] Sodium Chloride (Ns Flush) 2 ml IV.FLUSH BID [facility] Last Admin: 07/23/18 08:47 Dose: 2 ml Sodium Chloride (Ns Flush) 2 ml IV.FLUSH PRN PRN PRN Reason: FLUSH AFTER USING IV ACCESS Sotalol HCl (Betapace) 80 mg PO BID [facility] Physical Exam Vital signs: Vital Signs 07/22/18 16:59 07/22/18 17:00 07/22/18 17:16 Temperature 98.2 F 98.1 F Pulse Rate 59 L 58 L 62 Respiratory Rate 16 16 Blood Pressure 161/72 H 157/65 H Pulse Oximetry 95 97 07/22/18 18:00 07/22/18 19:00 07/22/18 20:00 Temperature 97.8 F Pulse Rate 55 L 54 L 56 L Respiratory Rate 16 Blood Pressure 165/62 H Pulse Oximetry 07/22/18 20:32 07/22/18 21:00 07/22/18 22:00 Temperature 97.8 F Pulse Rate 55 L 54 L 56 L Respiratory Rate 16 Blood Pressure 195/83 H Pulse Oximetry 97 07/22/18 23:00 07/23/18 00:00 07/23/18 01:00 Temperature 97.5 F L Pulse Rate 55 L 53 L 56 L Respiratory Rate 16 Blood Pressure 153/68 H Pulse Oximetry 07/23/18 02:00 07/23/18 03:00 07/23/18 04:00 Temperature 98 F Pulse Rate 57 L 60 60 Respiratory Rate 16 Blood Pressure 156/70 H Pulse Oximetry 07/23/18 05:00 07/23/18 06:00 07/23/18 06:41 Temperature Pulse Rate 57 L 128 H 114 H Respiratory Rate Blood Pressure 121/71 Pulse Oximetry 07/23/18 07:00 07/23/18 08:00 07/23/18 09:00 Temperature 98.3 F Pulse Rate 134 H 119 H 115 H Respiratory Rate 16 Blood Pressure 143/72 H Pulse Oximetry 97 07/23/18 09:16 07/23/18 10:00 07/23/18 10:31 Temperature Pulse Rate 124 H 114 H 121 H Respiratory Rate 18 Blood Pressure 143/74 H Pulse Oximetry 95 07/23/18 11:00 07/23/18 12:00 07/23/18 13:00 Temperature 98.0 F Pulse Rate 110 H 112 H 126 H Respiratory Rate 16 Blood Pressure 158/91 H Pulse Oximetry 98 07/23/18 14:00 07/23/18 15:00 07/23/18 16:00 Temperature 97.6 F Pulse Rate 127 H 127 H 128 H Respiratory Rate 16 Blood Pressure 156/90 H Pulse Oximetry 99 Intake & Output 07/22/18 07/23/18 07/23/18 18:59 06:59 18:59 Intake Total 1989 2900 / 2900 1235 / 1235 Output Total 650 / 650 2900 / 2900 Balance 1340 / 1340 0 / 0 1235 / 1235 Weight 61 kg Intake: IV 1110 / 1110 1000 / 1000 1235 / 1235 D5W/Normal Saline Inj 1,000 ML 1000 / 1000 1000 / 1000 1000 / 1000 @ 125 mls/hr IV.CONT .Q8H [facility] Rx#:[id number] Cardizem Inj 125 MG In NS Inj 125 / 125 100 ML @ 5 MG/HR 5 mls/hr IV. CONT TITRATE PRN Rx#:[id number] Venofer Inj 200 MG In NS Inj 110 / 110 110 / 110 100 ML @ 110 mls/hr IV.SIG DAILY [facility] Rx#:[id number] Oral 880 / 880 1500 / 1500 Intake (Blood Product) Amt 0 / 0 400 / 400 Rbc As-3 Leukoreduced Unit 0 / 0 400 / 400 [id number] Output: Urine 650 / 650 Urine/Stool Mix 2900 / 2900 Other: Date of Last Bowel Movement 07/22/18 07/23/18 # Bowel Movements 1 - Constitutional no acute distress - Routine HEENT Exam Head: Present: normocephalic Eye: Present: PERRL ENT: Present: mucous membranes moist - Routine Neck Exam Present: full ROM - Routine Respiratory Exam Present: CTA bilaterally - Routine Cardiovascular Exam Present: S1, S2, irregular rhythm. Absent: murmur, gallop Comments: Back in atrial fibrillation at this time - Routine Abdominal Exam Present: normoactive bowel sounds - Routine Extremities Exam Present: full ROM, pulses intact, normal capillary refill. Absent: cyanosis, clubbing, edema - Routine Skin Exam Present: intact - Routine Neurological Exam Present: oriented X3 - Detailed Neurological Exam: Coma Scale Eye Opening: Spontaneous Verbal Response: Oriented Motor Response: Obey commands [place] Coma Scale Total: 15 - Routine Psychiatric Exam Present: normal affect Results 07/23/18 04:46 07/22/18 03:16 Cardiac Enzymes 07/22/18 Range/Units 03:16 AST 42 H (15-37) U/L CBC 07/21/18 07/22/18 07/22/18 Range/Units 18:01 03:16 21:30 WBC 7.1 7.1 (4.0-11.0) th/mm3 RBC 3.75 L 3.00 L (4.00-5.30) mil/mm3 Hgb 9.5 L 7.7 L 9.6 L (11.6-15.3) gm/dL Hct 29.6 L 23.4 L 30.5 L (35.0-46.0) % Plt Count 238 199 (150-450) th/mm3 Neut # (Auto) 5.6 4.2 (1.8-7.7) th/mm3 Lymph # (Auto) 0.8 L 1.4 (1.0-4.8) th/mm3 [place] # (Auto) 0.6 1.2 H (0.0-0.9) th/mm3 Eos # (Auto) 0.0 0.2 (0.0-0.4) th/mm3 Baso # (Auto) 0.1 0.1 (0.0-0.2) th/mm3 07/23/18 Range/Units 04:46 WBC 6.1 (4.0-11.0) th/mm3 RBC 3.44 L (4.00-5.30) mil/mm3 Hgb 9.0 L (11.6-15.3) gm/dL Hct 26.4 L (35.0-46.0) % Plt Count 208 (150-450) th/mm3 Neut # (Auto) 3.7 (1.8-7.7) th/mm3 Lymph # (Auto) 1.0 (1.0-4.8) th/mm3 [place] # (Auto) 1.0 H (0.0-0.9) th/mm3 Eos # (Auto) 0.4 (0.0-0.4) th/mm3 Baso # (Auto) 0.1 (0.0-0.2) th/mm3 Comprehensive Metabolic Panel 07/22/18 Range/Units 03:16 Sodium 138 (136-145) meq/L Potassium 3.7 (3.5-5.1) meq/L Chloride 105 (98-107) meq/L Carbon Dioxide 24.0 (21.0-32.0) meq/L BUN 34 H (7-18) mg/dL Creatinine 1.29 H (0.50-1.00) mg/dL Calcium 8.4 L (8.5-10.1) mg/dL AST 42 H (15-37) U/L ALT 68 H (10-53) U/L Alkaline Phosphatase 161 H (45-117) U/L Total Protein 6.3 L D (6.4-8.2) g/dL Albumin 2.8 L (3.4-5.0) g/dL Intake and Output 07/23/18 07/23/18 07/23/18 06:59 14:59 22:59 Intake Total 2500 / 2500 1235 / 1235 Output Total 2900 / 2900 Balance -400 / -400 1235 / 1235 Intake: IV 1000 / 1000 1235 / 1235 D5W/Normal Saline Inj 1,000 ML 1000 / 1000 1000 / 1000 @ 125 mls/hr IV.CONT .Q8H [facility] Rx#:[id number] Cardizem Inj 125 MG In NS Inj 125 / 125 100 ML @ 5 MG/HR 5 mls/hr IV. CONT TITRATE PRN Rx#:[id number] Venofer Inj 200 MG In NS Inj 110 / 110 100 ML @ 110 mls/hr IV.SIG DAILY [facility] Rx#:[id number] Oral 1500 / 1500 Output: Urine/Stool Mix 2900 / 2900 Other: Date of Last Bowel Movement 07/23/18 Weight 61 kg - Imaging and Cardiology Imaging: Impressions GI Bleed Scan Nuclear Medicine 07/22/18 00:00 CONCLUSION: 1. No episodes of active GI bleeding observed. Abdomen/Pelvis CT 07/23/18 00:00 CONCLUSION: 1. Mild to moderate bilateral pleural effusions, right greater than left with basilar atelectasis. 2. Mild ascites and anasarca. No bowel obstruction or free air. Extensive atherosclerotic disease in the aorta and branches without aneurysm Assessment and Plan - Assessment (1) History of atrial fibrillation Code(s): Z86.79 - Personal history of other diseases of the circulatory system Status: Acute (2) Acute GI bleeding Code(s): K92.2 - Gastrointestinal hemorrhage, unspecified Status: Acute (3) Anticoagulant long-term use Code(s): Z79.01 - care home (current) use of anticoagulants Status: Acute (4) Symptomatic anemia Code(s): D64.9 - Anemia, unspecified Status: Acute - Plan We will start patient on sotalol 80 mg twice daily, the patient is currently in atrial fibrillation. Continue and titrate metoprolol for rate control. Unable to anticoagulate patient at this time due to GI bleeding, will restart anticoagulation when okay with gastroenterology. Colonoscopy was rescheduled for tomorrow due to patient going into atrial fib with RVR. We will continue to follow patient during her hospitalization. Patient to follow-up with her primary senior hardware engineer, Dr. Klein, after discharge. Patient was seen and evaluated by Dr. Heredia who participated in care, management and decision-making. - Attending Attestation Patient seen and examined. I reviewed and agree with the evaluation and plan as presented. Start antiarrhythmic tx with sotalol. Proceed with colonoscopy as planned.
--- NOTE | 2018-07-23 17:20 | P.PN ---
Subjective Interval history: Follow up for GI bleed anemia, Atrial fibrillation. Patient is currently doing well. Denies any chest pain, shortness of breath, fever or chills. She is scheduled for colonoscopy tomorrow. Physical Exam Vital signs: Vital Signs 07/22/18 17:16 07/22/18 18:00 07/22/18 19:00 Temperature 98.1 F 97.8 F Pulse Rate 62 55 L 54 L Respiratory Rate 16 16 Blood Pressure 157/65 H 165/62 H Pulse Oximetry 97 07/22/18 20:00 07/22/18 20:32 07/22/18 21:00 Temperature 97.8 F Pulse Rate 56 L 55 L 54 L Respiratory Rate 16 Blood Pressure 195/83 H Pulse Oximetry 97 07/22/18 22:00 07/22/18 23:00 07/23/18 00:00 Temperature 97.5 F L Pulse Rate 56 L 55 L 53 L Respiratory Rate 16 Blood Pressure 153/68 H Pulse Oximetry 07/23/18 01:00 07/23/18 02:00 07/23/18 03:00 Temperature 98 F Pulse Rate 56 L 57 L 60 Respiratory Rate 16 Blood Pressure 156/70 H Pulse Oximetry 07/23/18 04:00 07/23/18 05:00 07/23/18 06:00 Temperature Pulse Rate 60 57 L 128 H Respiratory Rate Blood Pressure Pulse Oximetry 07/23/18 06:41 07/23/18 07:00 07/23/18 08:00 Temperature 98.3 F Pulse Rate 114 H 134 H 119 H Respiratory Rate 16 Blood Pressure 121/71 143/72 H Pulse Oximetry 97 07/23/18 09:00 07/23/18 09:16 07/23/18 10:00 Temperature Pulse Rate 115 H 124 H 114 H Respiratory Rate Blood Pressure Pulse Oximetry 07/23/18 10:31 07/23/18 11:00 07/23/18 12:00 Temperature 98.0 F Pulse Rate 121 H 110 H 112 H Respiratory Rate 18 16 Blood Pressure 143/74 H 158/91 H Pulse Oximetry 95 98 07/23/18 13:00 07/23/18 14:00 07/23/18 15:00 Temperature 97.6 F Pulse Rate 126 H 127 H 127 H Respiratory Rate 16 Blood Pressure 156/90 H Pulse Oximetry 99 07/23/18 16:00 Temperature Pulse Rate 128 H Respiratory Rate Blood Pressure Pulse Oximetry Intake & Output 07/22/18 07/23/18 07/23/18 18:59 06:59 18:59 Intake Total 1989 2900 / 2900 1235 / 1235 Output Total 650 / 650 2900 / 2900 Balance 1340 / 1340 0 / 0 1235 / 1235 Weight 61 kg Intake: IV 1110 / 1110 1000 / 1000 1235 / 1235 D5W/Normal Saline Inj 1,000 ML 1000 / 1000 1000 / 1000 1000 / 1000 @ 125 mls/hr IV.CONT .Q8H MARCIA Rx#:[id number] Cardizem Inj 125 MG In NS Inj 125 / 125 100 ML @ 5 MG/HR 5 mls/hr IV. CONT TITRATE PRN Rx#:[id number] Venofer Inj 200 MG In NS Inj 110 / 110 110 / 110 100 ML @ 110 mls/hr IV.SIG DAILY MARCIA Rx#:[id number] Oral 880 / 880 1500 / 1500 Intake (Blood Product) Amt 0 / 0 400 / 400 Rbc As-3 Leukoreduced Unit 0 / 0 400 / 400 [id number] Output: Urine 650 / 650 Urine/Stool Mix 2900 / 2900 Other: Date of Last Bowel Movement 07/22/18 07/23/18 # Bowel Movements 1 Narrative: GENERAL: Alert, oriented x 3, NAD. SKIN: Warm and dry. HEAD: Normocephalic. EYES: No scleral icterus. No injection or drainage. NECK: Supple, trachea midline. No JVD or lymphadenopathy. CARDIOVASCULAR: Reg Rate and Rhythm, gallops, or rubs. RESPIRATORY: Breath sounds equal bilaterally. No accessory muscle use. GASTROINTESTINAL: Abdomen soft, non-tender, nondistended. MUSCULOSKELETAL: No cyanosis, or edema. BACK: Nontender without obvious deformity. No CVA tenderness. Results - Labs CBC & Chem 7: 07/23/18 04:46 07/22/18 03:16 Laboratory Results - last 24 hr 07/21/18 07/22/18 07/22/18 16:36 20:45 21:30 WBC RBC Hgb 9.6 L Hct 30.5 L MCV MCH MCHC RDW Plt Count MPV Neut % (Auto) Lymph % (Auto) [place] % (Auto) Eos % (Auto) Baso % (Auto) Neut # (Auto) Lymph # (Auto) [place] # (Auto) Eos # (Auto) Baso # (Auto) WBC Differential Differential Comment POC Glucose 202 H MTS Gel Crossmatch See Detail 07/23/18 07/23/18 07/23/18 04:46 08:44 11:55 WBC 6.1 RBC 3.44 L Hgb 9.0 L Hct 26.4 L MCV 76.9 L MCH 26.1 L MCHC 34.0 RDW 15.5 Plt Count 208 MPV 7.1 Neut % (Auto) 60.4 Lymph % (Auto) 16.1 [place] % (Auto) 15.7 H Eos % (Auto) 6.2 H Baso % (Auto) 1.6 Neut # (Auto) 3.7 Lymph # (Auto) 1.0 [place] # (Auto) 1.0 H Eos # (Auto) 0.4 Baso # (Auto) 0.1 WBC Differential . Differential Comment Auto diff final POC Glucose 191 H 111 H MTS Gel Crossmatch 07/23/18 07/23/18 13:33 16:21 WBC RBC Hgb Hct MCV MCH MCHC RDW Plt Count MPV Neut % (Auto) Lymph % (Auto) [place] % (Auto) Eos % (Auto) Baso % (Auto) Neut # (Auto) Lymph # (Auto) [place] # (Auto) Eos # (Auto) Baso # (Auto) WBC Differential Differential Comment POC Glucose 52 L 91 MTS Gel Crossmatch - Imaging Impressions Abdomen/Pelvis CT 07/23/18 00:00 CONCLUSION: 1. Mild to moderate bilateral pleural effusions, right greater than left with basilar atelectasis. 2. Mild ascites and anasarca. No bowel obstruction or free air. 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 She presents to our emergency department today with complaints of fatigue and black tarry stools that have been ongoing for the past 1 week prior to this admission. GI was consulted. Acute GI blood loss anemia -On protonix drip. This can likely be changed to IV push or PO. -EGD today 07/22/2018 shows esophagitis in the distal esophagus. -Patient received blood transfusion. Hgb 9.6 --> 9.0. -NM bleeding scan shows no evidence of bleed. -Colonoscopy tomorrow. Atrial fibrillation with RVR -Cardiology following. Currently on Sotalol 80mg BID. -Continue Metoprolol PO 25mg BID as well. Diabetes mellitus Hypothyroidism - Continue Levemir and sliding scale insulin - Continue Levothyroxine 75mcg Qday. Full code. Avoid Lovenox/Heparin for now. Discharge plan: Probable discharge in the next 24-48 hours depending on Cardiology, GI clearance.
[2018-07-23] MEDS: Insulin Detemir Inj 1,000 UNIT/10 ML Vial SQ SCH (20:17)
[2018-07-23] MEDS ORDERED: Metoprolol Tartrate 50 MG Tablet PO SCH (21:00)
--- NOTE | 2018-07-23 21:04 | ECG ---
Date Performed: 07/23/2018 Time Performed: 08:36:38 PTAGE: 73 years EKG: Probable atrial fibrillation with rapid ventricular response Diffuse nonspecific St-T garza es Compared to previous tracing, the atrial fibrillation is new. ST-T changes persist. Clinical corre lation is recommended Abnormal ECG NO PREVIOUS TRACING DOCTOR: Kevon Rosas Interpretating Date/Time 07/23/2018 21:01:57
[2018-07-24] MEDS: Dextrose 5%/NaCl 0.9% Inj 1,000 ML IV.CONT SCH ×3 (00:51→12:00)
[2018-07-24] MEDS: Levothyroxine 75 MCG Tablet PO SCH (05:36)
[2018-07-24] MEDS: Iron Sucrose Inj 200 MG in Sodium Chlor 0.9% Inj 100 ML IV.SIG SCH (08:53)
[2018-07-24] MEDS: Metoprolol Tartrate 25 MG Tablet PO SCH (09:12)
[2018-07-24] MEDS: Insulin NovoLOG Aspart Correctional Sugar Inj SQ SCH ×4 (09:13→21:56)
--- NOTE | 2018-07-24 11:12 | P.PN ---
Subjective Interval history: Follow-up GI bleed/A. fib with RVR July 24, 2018-patient seen and examined, currently n.p.o. pending colonoscopy today. Denies any chest pain, heart palpitation. Heart rate in the high 40s. Denies any GI bleed. Physical Exam Vital signs: Vital Signs 07/23/18 12:00 07/23/18 13:00 07/23/18 14:00 Temperature Pulse Rate 112 H 126 H 127 H Respiratory Rate Blood Pressure Pulse Oximetry 07/23/18 15:00 07/23/18 16:00 07/23/18 17:00 Temperature 97.6 F Pulse Rate 127 H 128 H 136 H Respiratory Rate 16 Blood Pressure 156/90 H Pulse Oximetry 99 07/23/18 18:00 07/23/18 19:00 07/23/18 20:00 Temperature 98.5 F Pulse Rate 117 H 137 H 115 H Respiratory Rate 16 Blood Pressure 156/96 H Pulse Oximetry 99 07/23/18 21:00 07/23/18 22:00 07/23/18 23:00 Temperature 98.5 F Pulse Rate 55 L 47 L 47 L Respiratory Rate 16 Blood Pressure 140/63 Pulse Oximetry 99 07/24/18 00:00 07/24/18 01:00 07/24/18 02:00 Temperature Pulse Rate 49 L 48 L 47 L Respiratory Rate Blood Pressure Pulse Oximetry 07/24/18 03:00 07/24/18 04:00 07/24/18 05:00 Temperature 98.4 F Pulse Rate 48 L 48 L 46 L Respiratory Rate 16 Blood Pressure 129/62 Pulse Oximetry 94 L 07/24/18 06:00 Temperature Pulse Rate 46 L Respiratory Rate Blood Pressure Pulse Oximetry Intake & Output 07/23/18 07/24/18 07/24/18 18:59 06:59 18:59 Intake Total 4635 / 4635 240 / 240 Output Total 1999 / 1999 800 / 800 Balance 2635 / 2635 -560 / -560 Weight 59.5 kg Intake: IV 3135 / 3135 D5W/Normal Saline Inj 1,000 ML 1000 / 1000 @ 125 mls/hr IV.CONT .Q8H MARCIA Rx#:[id number] NS Inj 1,000 ML @ 125 mls/hr IV 900 / 900 .CONT .Q8H MARCIA Rx#:[id number] Cardizem Inj 125 MG In NS Inj 125 / 125 100 ML @ 5 MG/HR 5 mls/hr IV. CONT TITRATE PRN Rx#:[id number] Venofer Inj 200 MG In NS Inj 110 / 110 100 ML @ 110 mls/hr IV.SIG DAILY MARCIA Rx#:[id number] Oral 1500 / 1500 240 / 240 Output: Urine 400 / 400 Urine/Stool Mix 1999 / 1999 400 / 400 Narrative: GENERAL: NAD SKIN: Warm and dry. HEAD: Normocephalic. EYES: No scleral icterus. No injection or drainage. NECK: Supple, trachea midline. No JVD or lymphadenopathy. CARDIOVASCULAR: Irregular regular rate and rhythm without murmurs, gallops, or rubs. RESPIRATORY: Breath sounds equal bilaterally. No accessory muscle use. GASTROINTESTINAL: Abdomen soft, non-tender, nondistended. MUSCULOSKELETAL: No cyanosis, or edema. BACK: Nontender without obvious deformity. No CVA tenderness. Results - Labs CBC & Chem 7: 07/23/18 04:46 07/22/18 03:16 Laboratory Results - last 24 hr 07/23/18 07/23/18 07/23/18 11:55 13:33 16:21 POC Glucose 111 H 52 L 91 07/23/18 07/23/18 07/24/18 18:30 20:16 09:10 POC Glucose 73 109 86 - Imaging Impressions Abdomen/Pelvis CT 07/23/18 00:00 CONCLUSION: 1. Mild to moderate bilateral pleural effusions, right greater than left with basilar atelectasis. 2. Mild ascites and anasarca. No bowel obstruction or free air. Extensive atherosclerotic disease in the aorta and branches without aneurysm Assessment and Plan - Assessment (1) Acute GI bleeding Code(s): K92.2 - Gastrointestinal hemorrhage, unspecified Status: Acute (2) History of atrial fibrillation Code(s): Z86.79 - Personal history of other diseases of the circulatory system Status: Acute - Plan 73-year-old female with Acute GI blood loss anemia -On Protonix drip -EGD 07/22/2018 shows esophagitis in the distal esophagus. -Transfused a total of 3 units packed red blood cells since admission -NM bleeding scan shows no evidence of bleed. -Colonoscopy today July 24, 2018. Atrial fibrillation with RVR -Cardiology following. Currently on Sotalol 80mg BID. Heart rate in the high 40s today July 24, 2018 -Continue Metoprolol PO 25mg BID as well. -Oral anticoagulation on hold secondary to GI bleed. Resume when okay by GI Diabetes mellitus Hypothyroidism - Continue Levemir and sliding scale insulin - Continue Levothyroxine 75mcg Qday. DVT prophylaxis: Chemical antiplatelet is contraindicated secondary to GI bleed
--- NOTE | 2018-07-24 14:10 | GIPROC ---
[facility] [address] [facility]. [facility], [address] COLONOSCOPY PROCEDURE REPORT EXAM DATE: 07/24/2018 PATIENT NAME: Ayesha Hardin MR #: [id number] BIRTHDATE: 1945 ENDOSCOPIST: Dae Waddell MD ORDER #: [id number] FELLER OPERATOR: Amaya Grigsby and Екатерина Horner STATUS: inpatient INDICATIONS: The patient is a 73 yr old female here for a colonoscopy due to hematochezia PROCEDURE PERFORMED: Colonoscopy, diagnostic Colonoscopy with GI bleeding control Colonoscopy with polypectomy Submucosal injection, any substance MEDICATIONS: None and Per Anesthesia. PREP QUALITY: poor ESTIMATED BLOOD LOSS: None CONSENT: The patient understands the risks and benefits of the procedure and understands that these risks include, but are not limited to: sedation, allergic reaction, infection, perforation and/or bleeding. Alternative means of evaluation and treatment include, among others: physical exam, x-rays, and/or surgical intervention. The patient elects to proceed with this endoscopic procedure. medical equipment was checked for proper function. Hand hygiene and appropriate measures for infection prevention was taken. After the risks, benefits and alternatives of the procedure were thoroughly explained, Informed consent was verified, confirmed and timeout was successfully executed by the treatment team. A digital exam was performed and revealed no abnormalities of the rectum The Pentax [id number] endoscope was introduced through the anus and advanced to the cecum, which was identified by both the appendix and ileocecal valve. The instrument was then slowly withdrawn as the colon was fully examined. COLON FINDINGS: An ulcerated and polypoid shaped pedunculated polyp measuring 1.5 cm in size was found in the ascending colon. A polypectomy was performed using snare cautery. The resection was complete and the polyp tissue was partially retrieved. Bleeding at the site was controlled using hemoclips. Two (2) placements were made. A 1:10,000 Epinephrine solution injection was given to control bleeding. A tattoo was applied. Moderate diverticulosis was noted throughout the entire examined colon. Retroflexed views revealed internal hemorrhoids and Retroflexed views revealed small internal hemorrhoids The scope was then completely withdrawn from the patient and the procedure terminated. PROCEDURE WITHDRAWAL TIME:15minutes ADVERSE EVENTS: There were no complications. IMPRESSIONS: 1. A pedunculated polyp measuring 1.5 cm in size was found in the ascending colon; polypectomy was performed using snare cautery; bleeding at the site was controlled using hemoclips; injection was given to control bleeding. 1:10,000 Epinephrine solution; a tattoo was applied 2. Moderate diverticulosis was noted throughout the entire examined colon 3. Retroflexed views revealed internal hemorrhoids 4. Retroflexed views revealed small internal hemorrhoids 5. Was performed 6. Revealed no abnormalities of the rectum RECOMMENDATIONS: Await biopsy results. Biopsy results will not be ready for 7-10 days. If you don't hear from us in two weeks, call our office for results. RECALL: Colonoscopy, pending biopsy results Dae Waddell MD eSigned: Dae Waddell MD 07/24/2018 2:09 PM cc: PATIENT NAME: Ayesha Hardin MR#: [id number]
[2018-07-24] MEDS ORDERED: Ketamine Inj 500 MG/10 ML Vial ONE (14:13)
[2018-07-24 15:20] LABS: Hematocrit 27.3 % (35.0-46.0)
--- NOTE | 2018-07-24 16:05 | P.PNCA ---
Subjective Interval history: Patient denies any CP, pressure, palpitations, dizziness, edema or SOB. Patient states she is starting to feel better. Medications and Allergies Allergies Allergy/AdvReac Type Severity Reaction Status Date / Time amlodipine Allergy Unknown Ankle Verified 07/20/18 14:15 swelling morphine Allergy Unknown Vomiting Verified 07/20/18 14:15 Sulfa (Sulfonamide Allergy Unknown Stomach Verified 07/20/18 14:15 Antibiotics) upset digoxin Allergy Bradycardia Verified 07/20/18 14:19 dronedarone [From Multaq] Allergy Weakness Verified 07/20/18 14:19 furosemide [From Lasix] Allergy Weakness Verified 07/20/18 14:19 Iodinated Contrast- Oral and Allergy Itching Verified 07/20/18 14:19 IV Dye [Contrast] levofloxacin Allergy Joint Pain Verified 07/20/18 14:19 ciprofloxacin [From Cipro] AdvReac Nausea Verified 07/20/18 14:19 Home Medications Medication Instructions Recorded Confirmed Type aspirin 81 mg PO DAILY 07/20/18 07/20/18 History hydralazine 25 mg PO BID 07/20/18 07/20/18 History insulin glargine [Lantus U-100 10 unit SUBCUT DAILY 07/20/18 07/20/18 History Insulin] insulin lispro [Humalog U-100 1 sliding scale dose SUBCUT UD 07/20/18 07/20/18 History Insulin] irbesartan 150 mg PO DAILY 07/20/18 07/20/18 History levothyroxine 75 mcg PO DAILY 07/20/18 07/20/18 History metoprolol tartrate 25 mg PO HS 07/20/18 07/20/18 History rivaroxaban [Xarelto] 15 mg PO DAILY 07/20/18 07/20/18 History timolol 1 drp OPHTHALMIC (EYE) BID 07/20/18 07/20/18 History Active Medications: Active Medications Dextrose (D50w Vial) 50 ml IV.PUSH UNSCH PRN PRN Reason: PER HYPOGLYCEMIA PROTOCOL Last Admin: 07/22/18 05:16 Dose: 50 ml Glucagon (Glucagon Inj) 1 mg OTHER PRN PRN PRN Reason: for Hypoglycemia Protocol Pantoprazole Sodium 80 mg/ (Sodium Chloride) 100 mls @ 10 mls/hr IV.CONT CONT MARCIA Sodium Chloride (Ns Inj) 500 mls @ 30 mls/hr IV.SIG .Q10H [facility] Last Admin: 07/22/18 10:00 Dose: Not Given Diltiazem HCl 125 mg/ Sodium (Chloride) 125 mls @ 5 mls/hr IV.CONT TITRATE PRN ; Protocol PRN Reason: Per Protocol Last Titration: 07/23/18 07:05 Dose: Infused Dextrose/Sodium Chloride (D5w/Normal Saline Inj) 1,000 mls @ 125 mls/hr IV.CONT .Q8H [facility] Last Admin: 07/24/18 12:00 Dose: 125 mls/hr Insulin Aspart (Novolog Insulin Correctional Sugar Inj) 0 unit SQ ACHS [facility]; Protocol Last Admin: 07/24/18 11:47 Dose: Not Given Insulin Aspart (Novolog Inj) 3 units SQ TIDAC [facility] Last Admin: 07/24/18 11:47 Dose: Not Given Insulin Detemir (Levemir Inj) 10 unit SQ HS [facility] Last Admin: 07/23/18 20:17 Dose: 10 unit Levothyroxine Sodium (Synthroid) 75 mcg PO DAILY@0600 [facility] Last Admin: 07/24/18 05:36 Dose: 75 mcg Miscellaneous Information ([facility] Nursing Information) 0 each OTHER UNSCH PRN PRN Reason: SEE LABEL COMMENTS Stop: 07/25/18 14:11 Sodium Chloride (Ns Flush) 2 ml IV.FLUSH BID [facility] Last Admin: 07/24/18 09:13 Dose: 2 ml Sodium Chloride (Ns Flush) 2 ml IV.FLUSH PRN PRN PRN Reason: FLUSH AFTER USING IV ACCESS Sotalol HCl (Betapace) 40 mg PO BID [facility] Physical Exam Vital signs: Vital Signs 07/23/18 17:00 07/23/18 18:00 07/23/18 19:00 Temperature 98.5 F Pulse Rate 136 H 117 H 137 H Respiratory Rate 16 Blood Pressure 156/96 H Pulse Oximetry 99 07/23/18 20:00 07/23/18 21:00 07/23/18 22:00 Temperature Pulse Rate 115 H 55 L 47 L Respiratory Rate Blood Pressure Pulse Oximetry 07/23/18 23:00 07/24/18 00:00 07/24/18 01:00 Temperature 98.5 F Pulse Rate 47 L 49 L 48 L Respiratory Rate 16 Blood Pressure 140/63 Pulse Oximetry 99 07/24/18 02:00 07/24/18 03:00 07/24/18 04:00 Temperature 98.4 F Pulse Rate 47 L 48 L 48 L Respiratory Rate 16 Blood Pressure 129/62 Pulse Oximetry 94 L 07/24/18 05:00 07/24/18 06:00 07/24/18 07:00 Temperature 98.2 F Pulse Rate 46 L 46 L 47 L Respiratory Rate 16 Blood Pressure 171/75 H Pulse Oximetry 97 07/24/18 08:00 07/24/18 09:00 07/24/18 10:00 Temperature Pulse Rate 48 L 48 L 49 L Respiratory Rate Blood Pressure Pulse Oximetry 07/24/18 11:00 07/24/18 12:00 07/24/18 14:09 Temperature 98.3 F 97.4 F L Pulse Rate 52 L 52 L 50 L Respiratory Rate 16 16 Blood Pressure 188/81 H 175/80 H Pulse Oximetry 97 97 07/24/18 14:15 07/24/18 14:30 07/24/18 14:45 Temperature Pulse Rate 48 L 48 L 50 L Respiratory Rate 16 16 16 Blood Pressure 179/80 H 180/74 H 177/81 H Pulse Oximetry 97 98 97 07/24/18 15:00 Temperature Pulse Rate 50 L Respiratory Rate 16 Blood Pressure 171/81 H Pulse Oximetry 97 Intake & Output 07/23/18 07/24/18 07/24/18 18:59 06:59 18:59 Intake Total 4635 / 4635 240 / 240 1110 / 1110 Output Total 1999 / 1999 800 / 800 Balance 2635 / 2635 -560 / -560 1110 / 1110 Weight 59.5 kg Intake: IV 3135 / 3135 1110 / 1110 D5W/Normal Saline Inj 1,000 ML 1000 / 1000 1000 / 1000 @ 125 mls/hr IV.CONT .Q8H MARCIA Rx#:[id number] NS Inj 1,000 ML @ 125 mls/hr IV 900 / 900 .CONT .Q8H MARCIA Rx#:[id number] Cardizem Inj 125 MG In NS Inj 125 / 125 100 ML @ 5 MG/HR 5 mls/hr IV. CONT TITRATE PRN Rx#:[id number] Venofer Inj 200 MG In NS Inj 110 / 110 110 / 110 100 ML @ 110 mls/hr IV.SIG DAILY MARCIA Rx#:[id number] Oral 1500 / 1500 240 / 240 Output: Urine 400 / 400 Urine/Stool Mix 1999 / 1999 400 / 400 - Constitutional no acute distress - Routine HEENT Exam Head: Present: normocephalic Eye: Present: PERRL ENT: Present: mucous membranes moist - Routine Neck Exam Present: full ROM - Routine Respiratory Exam Present: CTA bilaterally - Routine Cardiovascular Exam Present: S1, S2, rubs. Absent: murmur, gallop - Routine Abdominal Exam Present: normoactive bowel sounds - Routine Extremities Exam Present: full ROM, pulses intact, normal capillary refill. Absent: cyanosis, clubbing, edema - Routine Skin Exam Present: intact - Routine Neurological Exam Present: oriented X3 - Detailed Neurological Exam: Coma Scale Eye Opening: Spontaneous Verbal Response: Oriented Motor Response: Obey commands [place] Coma Scale Total: 15 - Routine Psychiatric Exam Present: normal affect Results 07/24/18 15:10 07/22/18 03:16 CBC 07/22/18 07/23/18 07/24/18 Range/Units 21:30 04:46 15:10 WBC 6.1 (4.0-11.0) th/mm3 RBC 3.44 L (4.00-5.30) mil/mm3 Hgb 9.6 L 9.0 L 9.0 L (11.6-15.3) gm/dL Hct 30.5 L 26.4 L 27.3 L (35.0-46.0) % Plt Count 208 (150-450) th/mm3 Neut # (Auto) 3.7 (1.8-7.7) th/mm3 Lymph # (Auto) 1.0 (1.0-4.8) th/mm3 [place] # (Auto) 1.0 H (0.0-0.9) th/mm3 Eos # (Auto) 0.4 (0.0-0.4) th/mm3 Baso # (Auto) 0.1 (0.0-0.2) th/mm3 Intake and Output 07/24/18 07/24/18 07/24/18 06:59 14:59 22:59 Intake Total 240 / 240 1110 / 1110 Output Total 800 / 800 Balance -560 / -560 1110 / 1110 Intake: IV 1110 / 1110 D5W/Normal Saline Inj 1,000 ML 1000 / 1000 @ 125 mls/hr IV.CONT .Q8H MARCIA Rx#:[id number] Venofer Inj 200 MG In NS Inj 110 / 110 100 ML @ 110 mls/hr IV.SIG DAILY MARCIA Rx#:[id number] Oral 240 / 240 Output: Urine 400 / 400 Urine/Stool Mix 400 / 400 Other: Weight 59.5 kg - Imaging and Cardiology Imaging: Impressions GI Bleed Scan Nuclear Medicine 07/22/18 00:00 CONCLUSION: 1. No episodes of active GI bleeding observed. Abdomen/Pelvis CT 07/23/18 00:00 CONCLUSION: 1. Mild to moderate bilateral pleural effusions, right greater than left with basilar atelectasis. 2. Mild ascites and anasarca. No bowel obstruction or free air. Extensive atherosclerotic disease in the aorta and branches without aneurysm Assessment and Plan - Assessment (1) History of atrial fibrillation Code(s): Z86.79 - Personal history of other diseases of the circulatory system Status: Acute (2) Acute GI bleeding Code(s): K92.2 - Gastrointestinal hemorrhage, unspecified Status: Acute (3) Anticoagulant long-term use Code(s): Z79.01 - longterm (current) use of anticoagulants Status: Acute (4) Symptomatic anemia Code(s): D64.9 - Anemia, unspecified Status: Acute - Plan We will start Sotalol 40mg BID and discontinue Metoprolol due to bradycardia. Unable to anticoagulate patient at this time due to GI bleeding, will restart anticoagulation when okay with gastroenterology. Colonoscopy done today. We will continue to monitor during her hospitalization. Patient to follow-up with her primary chief medical director, Dr. Klein, after discharge. Patient was seen and evaluated by Dr. Heredia who participated in care, management and decision-making. - Attending Attestation Patient seen and examined. I reviewed and agree with the evaluation and plan as presented. Change sotalol to 40 mg BID, DC metoprolol due to bradycardia. Continue monitoring on telemetry. Increase activity.
--- NOTE | 2018-07-24 19:55 | ECG ---
Date Performed: 07/24/2018 Time Performed: 05:35:12 PTAGE: 73 years EKG: Sinus bradycardia Prolonged QT interval Extensive ST-T changes Abnormal ECG Compared to PREVIOUS TRACING , a fib no longer present DOCTOR: Gabriele Heredia Interpretating Date/Time 07/24/2018 19:54:07
[2018-07-24] MEDS: Insulin Detemir Inj 1,000 UNIT/10 ML Vial SQ SCH (21:57)
[2018-07-24 22:23] LABS: Hematocrit 29.3 % (35.0-46.0); Hemoglobin 9.6 gm/dL (11.6-15.3)
[2018-07-24 23:59] LABS: Baso # (Auto) 0.1 th/mm3 (0.0-0.2); Baso % (Auto) 1.1 % (0.0-2.0); Eos # (Auto) 0.1 th/mm3 (0.0-0.4); Eos % (Auto) 1.6 % (0.0-4.0); Hematocrit 28.5 % (35.0-46.0); Hemoglobin 9.6 gm/dL (11.6-15.3); Lymph # (Auto) 0.9 th/mm3 (1.0-4.8); Mean Corpuscular HGB Conc 33.7 % (32.0-36.0); Mean Corpuscular Hemoglobin 26.6 pg (27.0-34.0); Mean Corpuscular Volume 78.9 fL (80.0-100.0); Mean Platelet Volume 7.7 fL (7.0-11.0); Mono # (Auto) 0.8 th/mm3 (0.0-0.9); Mono % (Auto) 11.7 % (0.0-8.0); Neut # (Auto) 4.8 th/mm3 (1.8-7.7); Neut % (Auto) 71.6 % (16.0-70.0); Platelet Count 208 th/mm3 (150-450); Red Blood Count 3.61 mil/mm3 (4.00-5.30); Red Cell Distribution Width 16.2 % (11.6-17.2); White Blood Count 6.7 th/mm3 (4.0-11.0)
--- NOTE | 2018-07-25 00:04 | XR ---
EXAM DATE: 07/24/2018 12:00 AM EDT AGE/SEX: 73 years / Female INDICATIONS: Congestion and difficulty breathing getting worse today. CLINICAL DATA: This is the patient's subsequent encounter. Patient reports that signs and symptoms h ave been present for 2 days and indicates a pain score of 0/10. MEDICAL/SURGICAL HISTORY: Hypothyroidism. Anemia. Diabetes. Hypertension. A-fib, coronary eun ry disease. Glaucoma. Hyponatremia.renal failure, squamous cell carcinoma of tongue, transient ischem ic attack, and restless leg syndrome. . Cardiac ablation. COMPARISON: [facility], XR RIBS W/ PA CHEST, LEFT, 03/24/2016. . FINDINGS: A single AP view of the chest demonstrates bibasilar airspace disease. Heart enlarged. Increase in pu lmonary vascularity. Osseous structures are intact. CONCLUSION: 1. Bibasilar consolidation and small pleural effusions. 2. Cardiomegaly Electronically signed by: Thanh Ayala MD 07/25/2018 12:03 AM EDT
[2018-07-25 00:39] LABS: Alanine Aminotransferase 55 U/L (10-53); Albumin 2.9 g/dL (3.4-5.0); Alkaline Phosphatase 149 U/L (45-117); Anion Gap 11 meq/L (5-15); Aspartate Aminotransferase 37 U/L (15-37); Blood Urea Nitrogen 11 mg/dL (7-18); Calcium 7.8 mg/dL (8.5-10.1); Carbon Dioxide 20.9 meq/L (21.0-32.0); Chloride 105 meq/L (98-107); Glomerular Filtration Rate 51 mL/min (>89); Glucose,Random 321 mg/dL (74-106); Magnesium 1.6 mg/dL (1.5-2.5); Potassium 3.7 meq/L (3.5-5.1); Sodium 137 meq/L (136-145); Total Protein 6.4 g/dL (6.4-8.2)
[2018-07-25 04:22] LABS: Hematocrit 28.4 % (35.0-46.0); Hemoglobin 9.3 gm/dL (11.6-15.3)
[2018-07-25] MEDS: Levothyroxine 75 MCG Tablet PO SCH (05:23)
[2018-07-25] MEDS: Dextrose 50% in Water 50 ML Vial IV.PUSH PRN (05:34)
--- NOTE | 2018-07-25 08:25 | P.PN ---
Subjective Interval history: Patient followed due to GI bleed and Atrial Fibrillation with RVR, 07/25: Seen in her bedroom, stable giving a bowel movement at this time, her relative in the room, discussed with nurse Miss Mann and Jody, she continue with Bradycardia as per Cardiology stopped Sotalol and re started on Metoprolol for rate control, as per GI specialist recommended to start liquid diet and advance as tolerated, PPIs, monitor for bleedings. increase activity as tolerated, no nausea, vomit or diarrhea. Physical Exam Vital signs: Vital Signs 07/24/18 09:00 07/24/18 10:00 07/24/18 11:00 Temperature Pulse Rate 48 L 49 L 52 L Respiratory Rate Blood Pressure Pulse Oximetry 07/24/18 12:00 07/24/18 14:09 07/24/18 14:15 Temperature 98.3 F 97.4 F L Pulse Rate 52 L 50 L 48 L Respiratory Rate 16 16 16 Blood Pressure 188/81 H 175/80 H 179/80 H Pulse Oximetry 97 97 97 07/24/18 14:30 07/24/18 14:45 07/24/18 15:00 Temperature Pulse Rate 48 L 50 L 52 L Respiratory Rate 16 16 16 Blood Pressure 180/74 H 177/81 H 171/81 H Pulse Oximetry 98 97 97 07/24/18 16:00 07/24/18 17:00 07/24/18 18:00 Temperature Pulse Rate 54 L 56 L 54 L Respiratory Rate Blood Pressure Pulse Oximetry 07/24/18 19:00 07/24/18 20:00 07/24/18 21:00 Temperature 98.1 F Pulse Rate 55 L 54 L 56 L Respiratory Rate 18 Blood Pressure 173/76 H Pulse Oximetry 94 L 07/24/18 22:00 07/24/18 23:00 07/25/18 00:00 Temperature 98.1 F Pulse Rate 58 L 54 L 50 L Respiratory Rate 16 Blood Pressure 197/87 H Pulse Oximetry 93 L 07/25/18 01:00 07/25/18 02:00 07/25/18 03:00 Temperature 98.2 F Pulse Rate 50 L 56 L 63 Respiratory Rate 16 Blood Pressure 179/79 H Pulse Oximetry 93 L 07/25/18 04:00 07/25/18 05:00 07/25/18 06:00 Temperature Pulse Rate 64 56 L 57 L Respiratory Rate Blood Pressure Pulse Oximetry Intake & Output 07/24/18 07/25/18 07/25/18 18:59 06:59 18:59 Intake Total 1590 / 1590 1720 / 1720 Output Total 1700 / 1700 Balance 1590 / 1590 Weight 59 kg Intake: IV 1110 / 1110 1000 / 1000 D5W/Normal Saline Inj 1,000 ML 1000 / 1000 1000 / 1000 @ 125 mls/hr IV.CONT .Q8H MARCIA Rx#:[id number] Venofer Inj 200 MG In NS Inj 110 / 110 100 ML @ 110 mls/hr IV.SIG DAILY MARCIA Rx#:[id number] Oral 480 / 480 720 / 720 Output: Urine 1700 / 1700 Other: # Voids 2 Date of Last Bowel Movement 07/24/18 # Bowel Movements 1 Narrative: GENERAL: NAD SKIN: Warm and dry. HEAD: Normocephalic. EYES: No scleral icterus. No injection or drainage. NECK: Supple, trachea midline. No JVD or lymphadenopathy. CARDIOVASCULAR: Irregular regular rate and rhythm without murmurs, gallops, or rubs. RESPIRATORY: Breath sounds equal bilaterally. No accessory muscle use. GASTROINTESTINAL: Abdomen soft, non-tender, nondistended. MUSCULOSKELETAL: No cyanosis, or edema. BACK: Nontender without obvious deformity. No CVA tenderness. Results - Labs CBC & Chem 7: 07/25/18 10:55 07/24/18 21:57 Laboratory Results - last 24 hr 07/24/18 07/24/18 07/24/18 09:10 11:29 14:42 WBC RBC Hgb Hct MCV MCH MCHC RDW Plt Count MPV Neut % (Auto) Lymph % (Auto) [place] % (Auto) Eos % (Auto) Baso % (Auto) Neut # (Auto) Lymph # (Auto) [place] # (Auto) Eos # (Auto) Baso # (Auto) WBC Differential Differential Comment Sodium Potassium Chloride Carbon Dioxide Anion Gap BUN Creatinine Estimated GFR POC Glucose 86 71 77 Random Glucose Calcium Magnesium Total Bilirubin AST ALT Alkaline Phosphatase B-Natriuretic Peptide Total Protein Albumin 07/24/18 07/24/18 07/24/18 15:10 16:53 21:43 WBC RBC Hgb 9.0 L Hct 27.3 L MCV MCH MCHC RDW Plt Count MPV Neut % (Auto) Lymph % (Auto) [place] % (Auto) Eos % (Auto) Baso % (Auto) Neut # (Auto) Lymph # (Auto) [place] # (Auto) Eos # (Auto) Baso # (Auto) WBC Differential Differential Comment Sodium Potassium Chloride Carbon Dioxide Anion Gap BUN Creatinine Estimated GFR POC Glucose 133 H 340 H Random Glucose Calcium Magnesium Total Bilirubin AST ALT Alkaline Phosphatase B-Natriuretic Peptide Total Protein Albumin 07/24/18 07/24/18 07/24/18 21:57 21:57 21:57 WBC 6.7 RBC 3.61 L Hgb 9.6 L 9.6 L Hct 29.3 L 28.5 L MCV 78.9 L MCH 26.6 L MCHC 33.7 RDW 16.2 Plt Count 208 MPV 7.7 Neut % (Auto) 71.6 H Lymph % (Auto) 14.0 [place] % (Auto) 11.7 H Eos % (Auto) 1.6 Baso % (Auto) 1.1 Neut # (Auto) 4.8 Lymph # (Auto) 0.9 L [place] # (Auto) 0.8 Eos # (Auto) 0.1 Baso # (Auto) 0.1 WBC Differential . Differential Comment Auto diff final Sodium 137 Potassium 3.7 Chloride 105 Carbon Dioxide 20.9 L Anion Gap 11 BUN 11 Creatinine 1.05 H Estimated GFR 51 L POC Glucose Random Glucose 321 H Calcium 7.8 L Magnesium 1.6 Total Bilirubin 0.8 AST 37 ALT 55 H Alkaline Phosphatase 149 H B-Natriuretic Peptide Total Protein 6.4 Albumin 2.9 L 07/24/18 07/25/18 07/25/18 21:57 03:56 05:27 WBC RBC Hgb 9.3 L Hct 28.4 L MCV MCH MCHC RDW Plt Count MPV Neut % (Auto) Lymph % (Auto) [place] % (Auto) Eos % (Auto) Baso % (Auto) Neut # (Auto) Lymph # (Auto) [place] # (Auto) Eos # (Auto) Baso # (Auto) WBC Differential Differential Comment Sodium Potassium Chloride Carbon Dioxide Anion Gap BUN Creatinine Estimated GFR POC Glucose 40 L* Random Glucose Calcium Magnesium Total Bilirubin AST ALT Alkaline Phosphatase B-Natriuretic Peptide 1636 H Total Protein Albumin 07/25/18 07/25/18 06:02 08:04 WBC RBC Hgb Hct MCV MCH MCHC RDW Plt Count MPV Neut % (Auto) Lymph % (Auto) [place] % (Auto) Eos % (Auto) Baso % (Auto) Neut # (Auto) Lymph # (Auto) [place] # (Auto) Eos # (Auto) Baso # (Auto) WBC Differential Differential Comment Sodium Potassium Chloride Carbon Dioxide Anion Gap BUN Creatinine Estimated GFR POC Glucose 145 H 100 Random Glucose Calcium Magnesium Total Bilirubin AST ALT Alkaline Phosphatase B-Natriuretic Peptide Total Protein Albumin - Imaging Impressions Chest X-Ray 07/24/18 00:00 CONCLUSION: 1. Bibasilar consolidation and small pleural effusions. 2. Cardiomegaly Abdomen/Pelvis CT 07/23/18 00:00 CONCLUSION: 1. Mild to moderate bilateral pleural effusions, right greater than left with basilar atelectasis. 2. Mild ascites and anasarca. No bowel obstruction or free air. Extensive atherosclerotic disease in the aorta and branches without aneurysm - Procedures COLONOSCOPY: IMPRESSIONS: 1. A pedunculated polyp measuring 1.5 cm in size was found in the ascending colon; polypectomy was performed using snare cautery; bleeding at the site was controlled using hemoclips; injection was given to control bleeding. 1:10,000 Epinephrine solution; a tattoo was applied 2. Moderate diverticulosis was noted throughout the entire examined colon 3. Retroflexed views revealed internal hemorrhoids 4. Retroflexed views revealed small internal hemorrhoids 5. Was performed 6. Revealed no abnormalities of the rectum RECOMMENDATIONS: Await biopsy results. Biopsy results will not be ready for 7-10 days. If you don't hear from us in two weeks, call our office for results. RECALL: Colonoscopy, pending biopsy results Dae Waddell MD eSigned: Dae Waddell MD 07/24/2018 2:09 PM Assessment and Plan - Assessment (1) Acute GI bleeding Code(s): K92.2 - Gastrointestinal hemorrhage, unspecified Status: Acute (2) History of atrial fibrillation Code(s): Z86.79 - Personal history of other diseases of the circulatory system Status: Acute - Plan 73-year-old female with Acute GI blood loss anemia -EGD 07/22/2018 shows esophagitis in the distal esophagus. -Transfused a total of 3 units packed red blood cells since admission -NM bleeding scan shows no evidence of bleed. -Status post Colonoscopy found Polyp removed and treated bleeding post procedure As per GI specialist recommended to start liquid diet and advance as tolerated, PPIs, monitor for bleedings. increase activity as tolerated, no nausea, vomit or diarrhea. Atrial fibrillation with RVR -Cardiology following. recommended to stop Sotalol due to Bradycardia worsening and re started on Metoprolol 25 mg daily. -Oral anticoagulation on hold secondary to GI bleed. Resume when okay by GI -Follow with his primary clinical trials specialist Dr. Klein on discharge. Diabetes mellitus had some hypoglycemia on hold Levemir. continue sliding scale. Hypothyroidism - Continue Levothyroxine 75 mcg Daily. DVT prophylaxis: Chemical antiplatelet is contraindicated secondary to GI bleed Code Status: Full Code. Discussed Condition With: Patient and relative in the room Nurse Miss Mann and Miss Vera. Discharge Planning: Once cleared by specialists.
[2018-07-25] MEDS: Insulin NovoLOG Aspart Correctional Sugar Inj SQ SCH ×5 (08:52→23:26)
[2018-07-25] MEDS: Dextrose 5%/NaCl 0.9% Inj 1,000 ML IV.CONT SCH (08:57)
--- NOTE | 2018-07-25 09:05 | P.PNGI ---
Subjective Interval history: Patient sitting up in the bed currently appears to be comfortable did note liquid brown stool x1 but no obvious bleeding current hemoglobin 9.3 will check any further liquid stools for C. difficile Okay to restart Xarelto Physical Exam Vital signs: Vital Signs 07/24/18 09:00 07/24/18 10:00 07/24/18 11:00 Temperature Pulse Rate 48 L 49 L 52 L Respiratory Rate Blood Pressure Pulse Oximetry 07/24/18 12:00 07/24/18 14:09 07/24/18 14:15 Temperature 98.3 F 97.4 F L Pulse Rate 52 L 50 L 48 L Respiratory Rate 16 16 16 Blood Pressure 188/81 H 175/80 H 179/80 H Pulse Oximetry 97 97 97 07/24/18 14:30 07/24/18 14:45 07/24/18 15:00 Temperature Pulse Rate 48 L 50 L 52 L Respiratory Rate 16 16 16 Blood Pressure 180/74 H 177/81 H 171/81 H Pulse Oximetry 98 97 97 07/24/18 16:00 07/24/18 17:00 07/24/18 18:00 Temperature Pulse Rate 54 L 56 L 54 L Respiratory Rate Blood Pressure Pulse Oximetry 07/24/18 19:00 07/24/18 20:00 07/24/18 21:00 Temperature 98.1 F Pulse Rate 55 L 54 L 56 L Respiratory Rate 18 Blood Pressure 173/76 H Pulse Oximetry 94 L 07/24/18 22:00 07/24/18 23:00 07/25/18 00:00 Temperature 98.1 F Pulse Rate 58 L 54 L 50 L Respiratory Rate 16 Blood Pressure 197/87 H Pulse Oximetry 93 L 07/25/18 01:00 07/25/18 02:00 07/25/18 03:00 Temperature 98.2 F Pulse Rate 50 L 56 L 63 Respiratory Rate 16 Blood Pressure 179/79 H Pulse Oximetry 93 L 07/25/18 04:00 07/25/18 05:00 07/25/18 06:00 Temperature Pulse Rate 64 56 L 57 L Respiratory Rate Blood Pressure Pulse Oximetry Intake & Output 07/24/18 07/25/18 07/25/18 18:59 06:59 18:59 Intake Total 1590 / 1590 1720 / 1720 Output Total 1700 / 1700 Balance 1590 / 1590 Weight 59 kg Intake: IV 1110 / 1110 1000 / 1000 D5W/Normal Saline Inj 1,000 ML 1000 / 1000 1000 / 1000 @ 125 mls/hr IV.CONT .Q8H MARCIA Rx#:[id number] Venofer Inj 200 MG In NS Inj 110 / 110 100 ML @ 110 mls/hr IV.SIG DAILY MARCIA Rx#:[id number] Oral 480 / 480 720 / 720 Output: Urine 1700 / 1700 Other: # Voids 2 Date of Last Bowel Movement 07/24/18 # Bowel Movements 1 - Constitutional no acute distress, disheveled, cooperative - Routine HEENT Exam ENT: Present: mucous membranes moist - Routine Cardiovascular Exam Present: S1, S2 - Routine Abdominal Exam Present: soft, normoactive bowel sounds - Routine Skin Exam Present: intact Results - Labs CBC & Chem 7: 07/25/18 10:55 07/24/18 21:57 Laboratory Results - last 24 hr 07/24/18 07/24/18 07/24/18 09:10 11:29 14:42 WBC RBC Hgb Hct MCV MCH MCHC RDW Plt Count MPV Neut % (Auto) Lymph % (Auto) [place] % (Auto) Eos % (Auto) Baso % (Auto) Neut # (Auto) Lymph # (Auto) [place] # (Auto) Eos # (Auto) Baso # (Auto) WBC Differential Differential Comment Sodium Potassium Chloride Carbon Dioxide Anion Gap BUN Creatinine Estimated GFR POC Glucose 86 71 77 Random Glucose Calcium Magnesium Total Bilirubin AST ALT Alkaline Phosphatase B-Natriuretic Peptide Total Protein Albumin 07/24/18 07/24/18 07/24/18 15:10 16:53 21:43 WBC RBC Hgb 9.0 L Hct 27.3 L MCV MCH MCHC RDW Plt Count MPV Neut % (Auto) Lymph % (Auto) [place] % (Auto) Eos % (Auto) Baso % (Auto) Neut # (Auto) Lymph # (Auto) [place] # (Auto) Eos # (Auto) Baso # (Auto) WBC Differential Differential Comment Sodium Potassium Chloride Carbon Dioxide Anion Gap BUN Creatinine Estimated GFR POC Glucose 133 H 340 H Random Glucose Calcium Magnesium Total Bilirubin AST ALT Alkaline Phosphatase B-Natriuretic Peptide Total Protein Albumin 07/24/18 07/24/18 07/24/18 21:57 21:57 21:57 WBC 6.7 RBC 3.61 L Hgb 9.6 L 9.6 L Hct 29.3 L 28.5 L MCV 78.9 L MCH 26.6 L MCHC 33.7 RDW 16.2 Plt Count 208 MPV 7.7 Neut % (Auto) 71.6 H Lymph % (Auto) 14.0 [place] % (Auto) 11.7 H Eos % (Auto) 1.6 Baso % (Auto) 1.1 Neut # (Auto) 4.8 Lymph # (Auto) 0.9 L [place] # (Auto) 0.8 Eos # (Auto) 0.1 Baso # (Auto) 0.1 WBC Differential . Differential Comment Auto diff final Sodium 137 Potassium 3.7 Chloride 105 Carbon Dioxide 20.9 L Anion Gap 11 BUN 11 Creatinine 1.05 H Estimated GFR 51 L POC Glucose Random Glucose 321 H Calcium 7.8 L Magnesium 1.6 Total Bilirubin 0.8 AST 37 ALT 55 H Alkaline Phosphatase 149 H B-Natriuretic Peptide Total Protein 6.4 Albumin 2.9 L 07/24/18 07/25/18 07/25/18 21:57 03:56 05:27 WBC RBC Hgb 9.3 L Hct 28.4 L MCV MCH MCHC RDW Plt Count MPV Neut % (Auto) Lymph % (Auto) [place] % (Auto) Eos % (Auto) Baso % (Auto) Neut # (Auto) Lymph # (Auto) [place] # (Auto) Eos # (Auto) Baso # (Auto) WBC Differential Differential Comment Sodium Potassium Chloride Carbon Dioxide Anion Gap BUN Creatinine Estimated GFR POC Glucose 40 L* Random Glucose Calcium Magnesium Total Bilirubin AST ALT Alkaline Phosphatase B-Natriuretic Peptide 1636 H Total Protein Albumin 07/25/18 07/25/18 06:02 08:04 WBC RBC Hgb Hct MCV MCH MCHC RDW Plt Count MPV Neut % (Auto) Lymph % (Auto) [place] % (Auto) Eos % (Auto) Baso % (Auto) Neut # (Auto) Lymph # (Auto) [place] # (Auto) Eos # (Auto) Baso # (Auto) WBC Differential Differential Comment Sodium Potassium Chloride Carbon Dioxide Anion Gap BUN Creatinine Estimated GFR POC Glucose 145 H 100 Random Glucose Calcium Magnesium Total Bilirubin AST ALT Alkaline Phosphatase B-Natriuretic Peptide Total Protein Albumin - Imaging Impressions Chest X-Ray 07/24/18 00:00 CONCLUSION: 1. Bibasilar consolidation and small pleural effusions. 2. Cardiomegaly - Procedures COLONOSCOPY: IMPRESSIONS: 1. A pedunculated polyp measuring 1.5 cm in size was found in the ascending colon; polypectomy was performed using snare cautery; bleeding at the site was controlled using hemoclips; injection was given to control bleeding. 1:10,000 Epinephrine solution; a tattoo was applied 2. Moderate diverticulosis was noted throughout the entire examined colon 3. Retroflexed views revealed internal hemorrhoids 4. Retroflexed views revealed small internal hemorrhoids 5. Was performed 6. Revealed no abnormalities of the rectum RECOMMENDATIONS: Await biopsy results. Biopsy results will not be ready for 7-10 days. If you don't hear from us in two weeks, call our office for results. RECALL: Colonoscopy, pending biopsy results Dae Waddell MD eSigned: Dae Waddell MD 07/24/2018 2:09 PM Assessment and Plan - Plan 73-year-old female who presented to the hospital on 07/20/2018 with weakness and fatigue for approximately a week and a half and melena stools for approximately 1 week. Patient notes she does have a history of constipation and does admit to some straining but does not take any usual medications for any bowel regimen. Aggregating factors could be related to p.o. iron supplements. Patient states appetite is good and she denies any current nausea vomiting or dyspepsia. 24 hours ago patient did have fairly large bowel movement which was noted to be more maroon in color but denies any current abdominal pain or cramping. Patient denies any family history of colon cancer and states endoscopy done approximately 9 years ago. Patient notes recent colonoscopy with Dr. Kang in January 2018 which showed large polyp. Current labs show initial hemoglobin on admission 6.5 and then repeated to be 5.8 patient had transfusion. Other labs reviewed was PT/INR 1.1, bilirubin 0.5, AST 52, ALT 88, and alkaline phosphatase 217. Patient has been on Xarelto since 2013 for her atrial fibrillation and denies any previous history of any GI bleeding. Patient notes recent hospital stay at [facility] , was evaluated and found UTI and was also treated for hyponatremia. Gastroenterology was consulted to assist with her current GI symptoms with melena stools and symptomatic anemia as well as develop per plan of care. Symptomatic anemia, symptoms of dark melena stools, but noted maroon colored stool over the past 24 hours x1 Aggregating factors could be related to his Xarelto which patient has been taken since 2013 History of constipation which could be related to iron supplements patient does note straining with bowel movements Recent hospital stay at [facility] for UTI and hyponatremia 06/20-06/2407/23/2018 Reporting one bowel movement this morning, color unchanged. Plan colonoscopy rescheduled due to patient's atrial fibrillation with a rate in the 130s. Hemoglobin 9.0 hematocrit 26.4 stable Colonoscopy rescheduled for tomorrow 07/25/2018, patient status post colonoscopy on 07/24/2018 findings include : An ulcerated and polypoid shaped pedunculated polyp measuring 1.5 cm in size was found in the ascending colon. A polypectomy was performed using snare cautery. The resection was complete and the polyp tissue was partially retrieved. Bleeding at the site was controlled using hemoclips. Two (2) placements were made. A 1:10,000 Epinephrine solution injection was given to control bleeding. A tattoo was applied. Moderat diverticulosis was noted throughout the entire examined colon. Retroflexed views revealed internal hemorrhoids and Retroflexed views revealed small internal hemorrhoids. Patient will need follow-up in the GI office after discharge 2-4 weeks GI bleed probably related to Xarelto which makes her high risk. Current hemoglobin 9.3, mild decrease but no acute changes. No obvious bleeding noted patient can restart Xarelto. Patient is stable from a GI standpoint and is okay to restart her Xarelto she will need to be monitored for any GI bleeding. Stool ordered to check for C. difficile if diarrhea reoccurs. GI will follow patient outpatient if needed Plan Diet cardiac as tolerated PPI Monitor labs with special attention to hemoglobin Increase activity as tolerated Okay to restart Xarelto, GI will sign off Patient was seen per myself and Dr. Waddell, note was written on his behalf
[2018-07-25 11:38] LABS: Baso # (Auto) 0.1 th/mm3 (0.0-0.2); Baso % (Auto) 0.8 % (0.0-2.0); Eos # (Auto) 0.1 th/mm3 (0.0-0.4); Eos % (Auto) 1.7 % (0.0-4.0); Hematocrit 29.4 % (35.0-46.0); Hemoglobin 9.7 gm/dL (11.6-15.3); Mean Corpuscular Hemoglobin 26.2 pg (27.0-34.0); Mean Corpuscular Volume 79.4 fL (80.0-100.0); Mean Platelet Volume 7.2 fL (7.0-11.0); Mono % (Auto) 14.4 % (0.0-8.0); Neut % (Auto) 69.1 % (16.0-70.0); Platelet Count 199 th/mm3 (150-450); Red Cell Distribution Width 15.6 % (11.6-17.2); White Blood Count 7.2 th/mm3 (4.0-11.0)
--- NOTE | 2018-07-25 11:42 | P.PNCA ---
Subjective Interval history: Patient denies any CP, pressure, palpitations, dizziness, edema or SOB. Medications and Allergies Allergies Allergy/AdvReac Type Severity Reaction Status Date / Time amlodipine Allergy Unknown Ankle Verified 07/20/18 14:15 swelling morphine Allergy Unknown Vomiting Verified 07/20/18 14:15 Sulfa (Sulfonamide Allergy Unknown Stomach Verified 07/20/18 14:15 Antibiotics) upset digoxin Allergy Bradycardia Verified 07/20/18 14:19 dronedarone [From Multaq] Allergy Weakness Verified 07/20/18 14:19 furosemide [From Lasix] Allergy Weakness Verified 07/20/18 14:19 Iodinated Contrast- Oral and Allergy Itching Verified 07/20/18 14:19 IV Dye [Contrast] levofloxacin Allergy Joint Pain Verified 07/20/18 14:19 ciprofloxacin [From Cipro] AdvReac Nausea Verified 07/20/18 14:19 Home Medications Medication Instructions Recorded Confirmed Type aspirin 81 mg PO DAILY 07/20/18 07/20/18 History hydralazine 25 mg PO BID 07/20/18 07/20/18 History insulin glargine [Lantus U-100 10 unit SUBCUT DAILY 07/20/18 07/20/18 History Insulin] insulin lispro [Humalog U-100 1 sliding scale dose SUBCUT UD 07/20/18 07/20/18 History Insulin] irbesartan 150 mg PO DAILY 07/20/18 07/20/18 History levothyroxine 75 mcg PO DAILY 07/20/18 07/20/18 History metoprolol tartrate 25 mg PO HS 07/20/18 07/20/18 History rivaroxaban [Xarelto] 15 mg PO DAILY 07/20/18 07/20/18 History timolol 1 drp OPHTHALMIC (EYE) BID 07/20/18 07/20/18 History Active Medications: Active Medications Dextrose (D50w Vial) 50 ml IV.PUSH UNSCH PRN PRN Reason: PER HYPOGLYCEMIA PROTOCOL Last Admin: 07/25/18 05:34 Dose: 50 ml Glucagon (Glucagon Inj) 1 mg OTHER PRN PRN PRN Reason: for Hypoglycemia Protocol Pantoprazole Sodium 80 mg/ (Sodium Chloride) 100 mls @ 10 mls/hr IV.CONT CONT MARCIA Sodium Chloride (Ns Inj) 500 mls @ 30 mls/hr IV.SIG .Q10H [facility]IA Last Admin: 07/22/18 10:00 Dose: Not Given Diltiazem HCl 125 mg/ Sodium (Chloride) 125 mls @ 5 mls/hr IV.CONT TITRATE PRN ; Protocol PRN Reason: Per Protocol Last Titration: 07/23/18 07:05 Dose: Infused Insulin Aspart (Novolog Insulin Correctional Sugar Inj) 0 unit SQ ACHS [facility]; Protocol Last Admin: 07/25/18 08:52 Dose: Not Given Insulin Aspart (Novolog Inj) 3 units SQ TIDAC [facility] Last Admin: 07/25/18 08:52 Dose: Not Given Levothyroxine Sodium (Synthroid) 75 mcg PO DAILY@0600 [facility] Last Admin: 07/25/18 05:23 Dose: 75 mcg Miscellaneous (Pill Splitter) 1 each OTHER UNSCH [facility] Miscellaneous Information (Mis Nursing Information) 0 each OTHER UNSCH PRN PRN Reason: SEE LABEL COMMENTS Stop: 07/25/18 14:11 Sodium Chloride (Ns Flush) 2 ml IV.FLUSH BID [facility] Last Admin: 07/25/18 08:54 Dose: 2 ml Sodium Chloride (Ns Flush) 2 ml IV.FLUSH PRN PRN PRN Reason: FLUSH AFTER USING IV ACCESS Physical Exam Vital signs: Vital Signs 07/24/18 12:00 07/24/18 14:09 07/24/18 14:15 Temperature 98.3 F 97.4 F L Pulse Rate 52 L 50 L 48 L Respiratory Rate 16 16 16 Blood Pressure 188/81 H 175/80 H 179/80 H Pulse Oximetry 97 97 97 07/24/18 14:30 07/24/18 14:45 07/24/18 15:00 Temperature Pulse Rate 48 L 50 L 52 L Respiratory Rate 16 16 16 Blood Pressure 180/74 H 177/81 H 171/81 H Pulse Oximetry 98 97 97 07/24/18 16:00 07/24/18 17:00 07/24/18 18:00 Temperature Pulse Rate 54 L 56 L 54 L Respiratory Rate Blood Pressure Pulse Oximetry 07/24/18 19:00 07/24/18 20:00 07/24/18 21:00 Temperature 98.1 F Pulse Rate 55 L 54 L 56 L Respiratory Rate 18 Blood Pressure 173/76 H Pulse Oximetry 94 L 07/24/18 22:00 07/24/18 23:00 07/25/18 00:00 Temperature 98.1 F Pulse Rate 58 L 54 L 50 L Respiratory Rate 16 Blood Pressure 197/87 H Pulse Oximetry 93 L 07/25/18 01:00 07/25/18 02:00 07/25/18 03:00 Temperature 98.2 F Pulse Rate 50 L 56 L 63 Respiratory Rate 16 Blood Pressure 179/79 H Pulse Oximetry 93 L 07/25/18 04:00 07/25/18 05:00 07/25/18 06:00 Temperature Pulse Rate 64 56 L 57 L Respiratory Rate Blood Pressure Pulse Oximetry 07/25/18 07:00 07/25/18 08:00 07/25/18 09:00 Temperature 97.7 F Pulse Rate 57 L 51 L 51 L Respiratory Rate 16 Blood Pressure 186/78 H Pulse Oximetry 94 L 07/25/18 10:00 Temperature Pulse Rate 51 L Respiratory Rate Blood Pressure Pulse Oximetry Intake & Output 07/24/18 07/25/18 07/25/18 18:59 06:59 18:59 Intake Total 1590 / 1590 1720 / 1720 Output Total 1700 / 1700 Balance 1590 / 1590 20 / 20 Weight 59 kg Intake: IV 1110 / 1110 1000 / 1000 D5W/Normal Saline Inj 1,000 ML 1000 / 1000 1000 / 1000 @ 125 mls/hr IV.CONT .Q8H [facility] Rx#:[id number] Venofer Inj 200 MG In NS Inj 110 / 110 100 ML @ 110 mls/hr IV.SIG DAILY [facility] Rx#:[id number] Oral 480 / 480 720 / 720 Output: Urine 1700 / 1700 Other: # Voids 2 Date of Last Bowel Movement 07/24/18 # Bowel Movements 1 - Constitutional no acute distress - Routine HEENT Exam Head: Present: normocephalic Eye: Present: PERRL ENT: Present: mucous membranes moist - Routine Neck Exam Present: full ROM - Routine Respiratory Exam Present: CTA bilaterally - Routine Cardiovascular Exam Present: S1, S2, bradycardia - Routine Abdominal Exam Present: normoactive bowel sounds - Routine Extremities Exam Present: full ROM, pulses intact, normal capillary refill. Absent: cyanosis, clubbing, edema - Routine Skin Exam Present: intact - Routine Neurological Exam Present: oriented X3 - Detailed Neurological Exam: Coma Scale Eye Opening: Spontaneous Verbal Response: Oriented Motor Response: Obey commands Jony Coma Scale Total: 15 - Routine Psychiatric Exam Present: normal affect Results 07/25/18 10:55 07/24/18 21:57 Cardiac Enzymes 07/24/18 07/24/18 Range/Units 21:57 21:57 AST 37 (15-37) U/L B-Natriuretic Peptide 1636 H (0-100) pg/mL Coagulation 07/24/18 Range/Units 21:57 B-Natriuretic Peptide 1636 H (0-100) pg/mL CBC 07/24/18 07/24/18 07/24/18 Range/Units 15:10 21:57 21:57 WBC 6.7 (4.0-11.0) th/mm3 RBC 3.61 L (4.00-5.30) mil/mm3 Hgb 9.0 L 9.6 L 9.6 L (11.6-15.3) gm/dL Hct 27.3 L 29.3 L 28.5 L (35.0-46.0) % Plt Count 208 (150-450) th/mm3 Neut # (Auto) 4.8 (1.8-7.7) th/mm3 Lymph # (Auto) 0.9 L (1.0-4.8) th/mm3 [place] # (Auto) 0.8 (0.0-0.9) th/mm3 Eos # (Auto) 0.1 (0.0-0.4) th/mm3 Baso # (Auto) 0.1 (0.0-0.2) th/mm3 07/25/18 Range/Units 03:56 WBC (4.0-11.0) th/mm3 RBC (4.00-5.30) mil/mm3 Hgb 9.3 L (11.6-15.3) gm/dL Hct 28.4 L (35.0-46.0) % Plt Count (150-450) th/mm3 Neut # (Auto) (1.8-7.7) th/mm3 Lymph # (Auto) (1.0-4.8) th/mm3 [place] # (Auto) (0.0-0.9) th/mm3 Eos # (Auto) (0.0-0.4) th/mm3 Baso # (Auto) (0.0-0.2) th/mm3 Comprehensive Metabolic Panel 07/24/18 Range/Units 21:57 Sodium 137 (136-145) meq/L Potassium 3.7 (3.5-5.1) meq/L Chloride 105 (98-107) meq/L Carbon Dioxide 20.9 L (21.0-32.0) meq/L BUN 11 (7-18) mg/dL Creatinine 1.05 H (0.50-1.00) mg/dL Calcium 7.8 L (8.5-10.1) mg/dL AST 37 (15-37) U/L ALT 55 H (10-53) U/L Alkaline Phosphatase 149 H (45-117) U/L Total Protein 6.4 (6.4-8.2) g/dL Albumin 2.9 L (3.4-5.0) g/dL Intake and Output 07/24/18 07/25/18 07/25/18 22:59 06:59 14:59 Intake Total 1480 / 1480 720 / 720 Output Total 1700 / 1700 Balance 1480 / 1480 -980 / -980 Intake: IV 1000 / 1000 D5W/Normal Saline Inj 1,000 ML 1000 / 1000 @ 125 mls/hr IV.CONT .Q8H [facility] Rx#:[id number] Oral 480 / 480 720 / 720 Output: Urine 1700 / 1700 Other: # Voids 2 Date of Last Bowel Movement 07/24/18 # Bowel Movements 1 Weight 59 kg - Imaging and Cardiology Imaging: Impressions Abdomen/Pelvis CT 07/23/18 00:00 CONCLUSION: 1. Mild to moderate bilateral pleural effusions, right greater than left with basilar atelectasis. 2. Mild ascites and anasarca. No bowel obstruction or free air. Extensive atherosclerotic disease in the aorta and branches without aneurysm Chest X-Ray 07/24/18 00:00 CONCLUSION: 1. Bibasilar consolidation and small pleural effusions. 2. Cardiomegaly Assessment and Plan - Assessment (1) History of atrial fibrillation Code(s): Z86.79 - Personal history of other diseases of the circulatory system Status: Acute (2) Acute GI bleeding Code(s): K92.2 - Gastrointestinal hemorrhage, unspecified Status: Acute (3) Anticoagulant long-term use Code(s): Z79.01 - snf (current) use of anticoagulants Status: Acute (4) Symptomatic anemia Code(s): D64.9 - Anemia, unspecified Status: Acute - Plan We will stop sotalol due to QT prolongation and restart Metoprolol for rate control. Patient unable to take Multaq due to allergy. She will likely need another ablation with Dr. Klein in the future. We will restart anticoagulation when ok with GI. We will continue to monitor during her hospitalization. Patient to follow-up with her primary medical research assistant, Dr. Klein, after discharge. Patient was seen and evaluated by Dr. Heredia who participated in care, management and decision-making. - Attending Attestation Patient seen and examined. I reviewed and agree with the evaluation and plan as presented. EKG shows significant QT prolongation with low dose sotalol, will switch back to metoprolol. Will likely need another ablation with Dr. Klein in the future.
[2018-07-25] MEDS: hydrALAZINE HCl Inj 20 MG/ML Vial IV.PUSH PRN (16:44)
--- NOTE | 2018-07-25 22:26 | ECG ---
Date Performed: 07/24/2018 Time Performed: 16:47:40 PTAGE: 73 years EKG: Sinus bradycardia. Prolonged QT interval Extensive ST-T changes Abnormal ECG Since the PREVIOUS TRACING , no significant change noted DOCTOR: Gabriele Heredia Interpretating Date/Time 07/25/2018 22:25:54
[2018-07-26 04:57] LABS: Hematocrit 31.1 % (35.0-46.0); Hemoglobin 10.4 gm/dL (11.6-15.3); Mean Corpuscular HGB Conc 33.3 % (32.0-36.0); Mean Corpuscular Hemoglobin 26.8 pg (27.0-34.0); Mean Corpuscular Volume 80.3 fL (80.0-100.0); Mean Platelet Volume 7.2 fL (7.0-11.0); Platelet Count 218 th/mm3 (150-450); Red Blood Count 3.88 mil/mm3 (4.00-5.30); Red Cell Distribution Width 15.5 % (11.6-17.2); White Blood Count 7.9 th/mm3 (4.0-11.0)
[2018-07-26] MEDS: Levothyroxine 75 MCG Tablet PO SCH (05:12)
[2018-07-26] MEDS: Insulin NovoLOG Aspart Correctional Sugar Inj SQ SCH ×4 (09:09→20:39)
--- NOTE | 2018-07-26 10:21 | P.PNCA ---
Subjective Interval history: Patient denies any CP, pressure, palpitations, dizziness, edema or SOB. Patient states that she is feeling much better. Medications and Allergies Allergies Allergy/AdvReac Type Severity Reaction Status Date / Time amlodipine Allergy Unknown Ankle Verified 07/20/18 14:15 swelling morphine Allergy Unknown Vomiting Verified 07/20/18 14:15 Sulfa (Sulfonamide Allergy Unknown Stomach Verified 07/20/18 14:15 Antibiotics) upset digoxin Allergy Bradycardia Verified 07/20/18 14:19 dronedarone [From Multaq] Allergy Weakness Verified 07/20/18 14:19 furosemide [From Lasix] Allergy Weakness Verified 07/20/18 14:19 Iodinated Contrast- Oral and Allergy Itching Verified 07/20/18 14:19 IV Dye [Contrast] levofloxacin Allergy Joint Pain Verified 07/20/18 14:19 ciprofloxacin [From Cipro] AdvReac Nausea Verified 07/20/18 14:19 Home Medications Medication Instructions Recorded Confirmed Type aspirin 81 mg PO DAILY 07/20/18 07/20/18 History hydralazine 25 mg PO BID 07/20/18 07/20/18 History insulin glargine [Lantus U-100 10 unit SUBCUT DAILY 07/20/18 07/20/18 History Insulin] insulin lispro [Humalog U-100 1 sliding scale dose SUBCUT UD 07/20/18 07/20/18 History Insulin] irbesartan 150 mg PO DAILY 07/20/18 07/20/18 History levothyroxine 75 mcg PO DAILY 07/20/18 07/20/18 History metoprolol tartrate 25 mg PO HS 07/20/18 07/20/18 History rivaroxaban [Xarelto] 15 mg PO DAILY 07/20/18 07/20/18 History timolol 1 drp OPHTHALMIC (EYE) BID 07/20/18 07/20/18 History Active Medications: Active Medications Dextrose (D50w Vial) 50 ml IV.PUSH UNSCH PRN PRN Reason: PER HYPOGLYCEMIA PROTOCOL Last Admin: 07/25/18 05:34 Dose: 50 ml Glucagon (Glucagon Inj) 1 mg OTHER PRN PRN PRN Reason: for Hypoglycemia Protocol Hydralazine HCl (Apresoline Inj) 20 mg IV.PUSH Q4H PRN PRN Reason: SBP 160 mm Hg. or over. Last Admin: 07/25/18 16:44 Dose: 20 mg Pantoprazole Sodium 80 mg/ (Sodium Chloride) 100 mls @ 10 mls/hr IV.CONT CONT MARCIA Sodium Chloride (Ns Inj) 500 mls @ 30 mls/hr IV.SIG .Q10H [facility] Last Admin: 07/22/18 10:00 Dose: Not Given Diltiazem HCl 125 mg/ Sodium (Chloride) 125 mls @ 5 mls/hr IV.CONT TITRATE PRN ; Protocol PRN Reason: Per Protocol Last Titration: 07/23/18 07:05 Dose: Infused Insulin Aspart (Novolog Insulin Correctional Sugar Inj) 0 unit SQ ACHS [facility]; Protocol Last Admin: 07/26/18 09:09 Dose: 7 unit Insulin Aspart (Novolog Inj) 3 units SQ TIDAC [facility] Last Admin: 07/26/18 09:09 Dose: 3 units Levothyroxine Sodium (Synthroid) 75 mcg PO DAILY@0600 [facility] Last Admin: 07/26/18 05:12 Dose: 75 mcg Losartan Potassium (Cozaar) 50 mg PO DAILY [facility] Last Admin: 07/26/18 09:02 Dose: 50 mg Metoprolol Succinate (Toprol Xl) 25 mg PO DAILY [facility] Last Admin: 07/26/18 09:02 Dose: Not Given Miscellaneous (Pill Splitter) 1 each OTHER UNSCH [facility] Sodium Chloride (Ns Flush) 2 ml IV.FLUSH BID [facility] Last Admin: 07/26/18 09:02 Dose: 2 ml Sodium Chloride (Ns Flush) 2 ml IV.FLUSH PRN PRN PRN Reason: FLUSH AFTER USING IV ACCESS Physical Exam Vital signs: Vital Signs 07/25/18 11:00 07/25/18 12:00 07/25/18 13:00 Temperature 98 F Pulse Rate 51 L 54 L 54 L Respiratory Rate 17 Blood Pressure 186/83 H Pulse Oximetry 99 07/25/18 14:00 07/25/18 15:00 07/25/18 16:00 Temperature Pulse Rate 56 L 54 L 64 Respiratory Rate 16 Blood Pressure 190/73 H 179/78 H Pulse Oximetry 97 07/25/18 16:45 07/25/18 17:00 07/25/18 17:53 Temperature Pulse Rate 64 75 Respiratory Rate Blood Pressure 161/67 H 137/65 Pulse Oximetry 07/25/18 19:00 07/25/18 20:00 07/25/18 21:00 Temperature 97.9 F Pulse Rate 67 62 60 Respiratory Rate 16 Blood Pressure 159/72 H Pulse Oximetry 97 07/25/18 22:00 07/25/18 23:00 07/26/18 00:00 Temperature 97.5 F L Pulse Rate 62 65 64 Respiratory Rate 16 Blood Pressure 111/51 L Pulse Oximetry 96 07/26/18 01:00 07/26/18 02:00 07/26/18 03:00 Temperature 98.3 F Pulse Rate 66 58 L 58 L Respiratory Rate 16 Blood Pressure 138/64 Pulse Oximetry 92 L 07/26/18 04:00 07/26/18 05:00 07/26/18 06:00 Temperature Pulse Rate 62 58 L 60 Respiratory Rate Blood Pressure Pulse Oximetry 07/26/18 07:00 Temperature Pulse Rate 62 Respiratory Rate Blood Pressure Pulse Oximetry Intake & Output 07/25/18 07/26/18 07/26/18 18:59 06:59 18:59 Intake Total 1080 / 1080 720 / 720 Output Total 200 / 200 350 / 350 Balance 880 / 880 370 / 370 Weight 60.5 kg Intake: Oral 1080 / 1080 720 / 720 Output: Urine 350 / 350 Urine/Stool Mix 200 / 200 Other: # Voids 4 Date of Last Bowel Movement 07/25/18 # Bowel Movements 1 - Constitutional no acute distress - Routine HEENT Exam Head: Present: normocephalic Eye: Present: PERRL ENT: Present: mucous membranes moist - Routine Neck Exam Present: full ROM - Routine Respiratory Exam Present: CTA bilaterally - Routine Cardiovascular Exam Present: S1, S2, murmur. Absent: gallop, rubs - Routine Abdominal Exam Present: normoactive bowel sounds - Routine Extremities Exam Present: full ROM, pulses intact, normal capillary refill. Absent: cyanosis, clubbing, edema - Routine Skin Exam Present: intact - Routine Neurological Exam Present: oriented X3 - Detailed Neurological Exam: Coma Scale Eye Opening: Spontaneous Verbal Response: Oriented Motor Response: Obey commands Jony Coma Scale Total: 15 - Routine Psychiatric Exam Present: normal affect Results 07/26/18 04:20 07/24/18 21:57 Cardiac Enzymes 07/24/18 07/24/18 Range/Units 21:57 21:57 AST 37 (15-37) U/L B-Natriuretic Peptide 1636 H (0-100) pg/mL Coagulation 07/24/18 Range/Units 21:57 B-Natriuretic Peptide 1636 H (0-100) pg/mL CBC 07/24/18 07/24/18 07/24/18 Range/Units 15:10 21:57 21:57 WBC 6.7 (4.0-11.0) th/mm3 RBC 3.61 L (4.00-5.30) mil/mm3 Hgb 9.0 L 9.6 L 9.6 L (11.6-15.3) gm/dL Hct 27.3 L 29.3 L 28.5 L (35.0-46.0) % Plt Count 208 (150-450) th/mm3 Neut # (Auto) 4.8 (1.8-7.7) th/mm3 Lymph # (Auto) 0.9 L (1.0-4.8) th/mm3 [place] # (Auto) 0.8 (0.0-0.9) th/mm3 Eos # (Auto) 0.1 (0.0-0.4) th/mm3 Baso # (Auto) 0.1 (0.0-0.2) th/mm3 07/25/18 07/25/18 07/26/18 Range/Units 03:56 10:55 04:20 WBC 7.2 7.9 (4.0-11.0) th/mm3 RBC 3.70 L 3.88 L (4.00-5.30) mil/mm3 Hgb 9.3 L 9.7 L 10.4 L (11.6-15.3) gm/dL Hct 28.4 L 29.4 L 31.1 L (35.0-46.0) % Plt Count 199 218 (150-450) th/mm3 Neut # (Auto) 5.0 (1.8-7.7) th/mm3 Lymph # (Auto) 1.0 (1.0-4.8) th/mm3 [place] # (Auto) 1.0 H (0.0-0.9) th/mm3 Eos # (Auto) 0.1 (0.0-0.4) th/mm3 Baso # (Auto) 0.1 (0.0-0.2) th/mm3 Comprehensive Metabolic Panel 07/24/18 Range/Units 21:57 Sodium 137 (136-145) meq/L Potassium 3.7 (3.5-5.1) meq/L Chloride 105 (98-107) meq/L Carbon Dioxide 20.9 L (21.0-32.0) meq/L BUN 11 (7-18) mg/dL Creatinine 1.05 H (0.50-1.00) mg/dL Calcium 7.8 L (8.5-10.1) mg/dL AST 37 (15-37) U/L ALT 55 H (10-53) U/L Alkaline Phosphatase 149 H (45-117) U/L Total Protein 6.4 (6.4-8.2) g/dL Albumin 2.9 L (3.4-5.0) g/dL Intake and Output 07/25/18 07/26/18 07/26/18 22:59 06:59 14:59 Intake Total 1080 / 1080 720 / 720 Output Total 200 / 200 350 / 350 Balance 880 / 880 370 / 370 Intake: Oral 1080 / 1080 720 / 720 Output: Urine 350 / 350 Urine/Stool Mix 200 / 200 Other: # Voids 4 Date of Last Bowel Movement 07/25/18 # Bowel Movements 1 Weight 60.5 kg - Imaging and Cardiology Imaging: Impressions Chest X-Ray 07/24/18 00:00 CONCLUSION: 1. Bibasilar consolidation and small pleural effusions. 2. 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 She is unable to take Multaq due to allergy. She will likely need another ablation with Dr. Klein in the future. OK to start Xarelto per GI. We will restart patient on Xarelto 20mg QD in the evening with meal. We will continue to monitor during her hospitalization. Patient to follow-up with her primary dictating machine transcriber, Dr. Klein, after discharge. Patient was seen and evaluated by Dr. Heredia who participated in care, management and decision-making. - Attending Attestation Patient seen and examined. I reviewed and agree with the evaluation and plan as presented. Continue current program. Restart anticoagulation with Xarelto. F/u w Dr. Klein after discharge.
--- NOTE | 2018-07-26 10:51 | P.PNIM ---
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 She presents to our emergency department today with complaints of fatigue and black tarry stools that have been ongoing for the past 1 week. The patient was seen by her oncologist Dr. Powers and sent to our emergency department for evaluation due to her black stools. As per documentation the patient had a colonoscopy in January 2018 which did not show any significant findings. She denies any fevers or chills, no chest pain, no diarrhea. 07-21 Follow up for GI bleed anemia, Atrial fibrillation. Patient was seen before she went to GI lab. Her heart rate was 120-160s. We pushed 5mg of IV metoprolol which controlled heart rate to 115 range. However, once patient went to GI lab, her heart rate again went up in the 150s range. Subsequently EGD was cancelled. I discussed with GI attending who recommended Cardiology consult and transferring patient to cardiac floor. Patient was started on Cardizem drip. 07-22 Follow up for GI bleed anemia, Atrial fibrillation. Attempted to see patient this afternoon. 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 Discussed with patient's . Went back to see patient. Patient is currently doing well. No acute concerns. Tolerating diet well. 07-23 Follow up for GI bleed anemia, Atrial fibrillation. Patient is currently doing well. Denies any chest pain, shortness of breath, fever or chills. She is scheduled for colonoscopy tomorrow. 07-24 Follow-up GI bleed/A. fib with RVR July 24, 2018-patient seen and examined, currently n.p.o. pending colonoscopy today. Denies any chest pain, heart palpitation. Heart rate in the high 40s. Denies any GI bleed. 07-25 Patient followed due to GI bleed and Atrial Fibrillation with RVR, 07/25: Seen in her bedroom, stable giving a bowel movement at this time, her relative in the room, discussed with nurse Miss Mann and Jody, she continue with Bradycardia as per Cardiology stopped Sotalol and re started on Metoprolol for rate control, as per GI specialist recommended to start liquid diet and advance as tolerated, PPIs, monitor for bleedings. increase activity as tolerated, no nausea, vomit or diarrhea. 07-26 TO RESTART LANTUS/LEVEMIR TODAY RESTART XARELTO TODAY AM LABS IF STABLE POSSIBLE DC IN NEXT 24 TO 48 HOURS DW RN AND PT AND CM Physical Exam Vital signs: Vital Signs 07/25/18 11:00 07/25/18 12:00 07/25/18 13:00 Temperature 98 F Pulse Rate 51 L 54 L 54 L Respiratory Rate 17 Blood Pressure 186/83 H Pulse Oximetry 99 07/25/18 14:00 07/25/18 15:00 07/25/18 16:00 Temperature Pulse Rate 56 L 54 L 64 Respiratory Rate 16 Blood Pressure 190/73 H 179/78 H Pulse Oximetry 97 07/25/18 16:45 07/25/18 17:00 07/25/18 17:53 Temperature Pulse Rate 64 75 Respiratory Rate Blood Pressure 161/67 H 137/65 Pulse Oximetry 07/25/18 19:00 07/25/18 20:00 07/25/18 21:00 Temperature 97.9 F Pulse Rate 67 62 60 Respiratory Rate 16 Blood Pressure 159/72 H Pulse Oximetry 97 07/25/18 22:00 07/25/18 23:00 07/26/18 00:00 Temperature 97.5 F L Pulse Rate 62 65 64 Respiratory Rate 16 Blood Pressure 111/51 L Pulse Oximetry 96 07/26/18 01:00 07/26/18 02:00 07/26/18 03:00 Temperature 98.3 F Pulse Rate 66 58 L 58 L Respiratory Rate 16 Blood Pressure 138/64 Pulse Oximetry 92 L 07/26/18 04:00 07/26/18 05:00 07/26/18 06:00 Temperature Pulse Rate 62 58 L 60 Respiratory Rate Blood Pressure Pulse Oximetry 07/26/18 07:00 Temperature Pulse Rate 62 Respiratory Rate Blood Pressure Pulse Oximetry Intake & Output 07/25/18 07/26/18 07/26/18 18:59 06:59 18:59 Intake Total 1080 / 1080 720 / 720 Output Total 200 / 200 350 / 350 Balance 880 / 880 370 / 370 Weight 60.5 kg Intake: Oral 1080 / 1080 720 / 720 Output: Urine 350 / 350 Urine/Stool Mix 200 / 200 Other: # Voids 4 Date of Last Bowel Movement 07/25/18 # Bowel Movements 1 Narrative: GENERAL: NAD SKIN: Warm and dry. HEAD: Normocephalic. EYES: No scleral icterus. No injection or drainage. NECK: Supple, trachea midline. No JVD or lymphadenopathy. CARDIOVASCULAR: Irregular regular rate and rhythm without murmurs, gallops, or rubs. S1-S2 no S3 or S4 RESPIRATORY: Breath sounds equal bilaterally. No accessory muscle use. GASTROINTESTINAL: Abdomen soft, non-tender, nondistended. MUSCULOSKELETAL: No cyanosis, or edema. BACK: Nontender without obvious deformity. No CVA tenderness. Insight and judgment is good Mood and behavior is appropriate Results - Labs CBC & Chem 7: 07/26/18 04:20 07/24/18 21:57 Laboratory Results - last 24 hr 07/25/18 07/25/18 07/25/18 10:55 11:39 16:49 WBC 7.2 RBC 3.70 L Hgb 9.7 L Hct 29.4 L MCV 79.4 L MCH 26.2 L MCHC 33.0 RDW 15.6 Plt Count 199 MPV 7.2 Neut % (Auto) 69.1 Lymph % (Auto) 14.0 [place] % (Auto) 14.4 H Eos % (Auto) 1.7 Baso % (Auto) 0.8 Neut # (Auto) 5.0 Lymph # (Auto) 1.0 [place] # (Auto) 1.0 H Eos # (Auto) 0.1 Baso # (Auto) 0.1 WBC Differential . Differential Comment Auto diff final POC Glucose 154 H 149 H 07/25/18 07/25/18 07/26/18 20:55 23:20 04:20 WBC 7.9 RBC 3.88 L Hgb 10.4 L Hct 31.1 L MCV 80.3 MCH 26.8 L MCHC 33.3 RDW 15.5 Plt Count 218 MPV 7.2 Neut % (Auto) Lymph % (Auto) [place] % (Auto) Eos % (Auto) Baso % (Auto) Neut # (Auto) Lymph # (Auto) [place] # (Auto) Eos # (Auto) Baso # (Auto) WBC Differential Differential Comment POC Glucose 264 H 349 H 07/26/18 09:05 WBC RBC Hgb Hct MCV MCH MCHC RDW Plt Count MPV Neut % (Auto) Lymph % (Auto) [place] % (Auto) Eos % (Auto) Baso % (Auto) Neut # (Auto) Lymph # (Auto) [place] # (Auto) Eos # (Auto) Baso # (Auto) WBC Differential Differential Comment POC Glucose 342 H - Imaging GI Bleed Scan Nuclear Medicine 07/22/18 00:00 CONCLUSION: 1. No episodes of active GI bleeding observed. Abdomen/Pelvis CT 07/23/18 00:00 CONCLUSION: 1. Mild to moderate bilateral pleural effusions, right greater than left with basilar atelectasis. 2. Mild ascites and anasarca. No bowel obstruction or free air. Extensive atherosclerotic disease in the aorta and branches without aneurysm Chest X-Ray 07/24/18 00:00 CONCLUSION: 1. Bibasilar consolidation and small pleural effusions. 2. Cardiomegaly - Procedures COLONOSCOPY: IMPRESSIONS: 1. A pedunculated polyp measuring 1.5 cm in size was found in the ascending colon; polypectomy was performed using snare cautery; bleeding at the site was controlled using hemoclips; injection was given to control bleeding. 1:10,000 Epinephrine solution; a tattoo was applied 2. Moderate diverticulosis was noted throughout the entire examined colon 3. Retroflexed views revealed internal hemorrhoids 4. Retroflexed views revealed small internal hemorrhoids 5. Was performed 6. Revealed no abnormalities of the rectum RECOMMENDATIONS: Await biopsy results. Biopsy results will not be ready for 7-10 days. If you don't hear from us in two weeks, call our office for results. RECALL: Colonoscopy, pending biopsy results Dae Waddell MD eSigned: Dae Waddell MD 07/24/2018 2:09 PM Assessment and Plan - Assessment (1) Acute GI bleeding Code(s): K92.2 - Gastrointestinal hemorrhage, unspecified Status: Acute (2) History of atrial fibrillation Code(s): Z86.79 - Personal history of other diseases of the circulatory system Status: Acute - Plan 73-year-old female with Acute GI blood loss anemia -EGD 07/22/2018 shows esophagitis in the distal esophagus. -Transfused a total of 3 units packed red blood cells since admission -NM bleeding scan shows no evidence of bleed. -Status post Colonoscopy found Polyp removed and treated bleeding post procedure As per GI specialist recommended to start liquid diet and advance as tolerated, PPIs, monitor for bleedings. increase activity as tolerated, no nausea, vomit or diarrhea. Atrial fibrillation with RVR -Cardiology following. recommended to stop Sotalol due to Bradycardia worsening and re started on Metoprolol 25 mg daily. -Oral anticoagulation on hold secondary to GI bleed. Resume when okay by GI -Follow with his primary water pollution specialist Dr. Klein on discharge. Diabetes mellitus had some hypoglycemia on hold Levemir. continue sliding scale. Wants Levemir restarted Hypothyroidism - Continue Levothyroxine 75 mcg Daily. DVT prophylaxis: Chemical antiplatelet is contraindicated secondary to GI bleed Code Status: Full code Discussed Condition With: RN and patient and cardiology Discharge Planning: Pending clearance by GI and cardiology And no more bleeding A.m. labs
--- NOTE | 2018-07-26 13:43 | P.PNONC ---
Subjective Interval history: Feeling better and stronger. He is in sinus rhythm. Denies any further bleeding. Is looking forward to going home Objective Vital Signs/Intake & Output: Vital Signs 07/25/18 14:00 07/25/18 15:00 07/25/18 16:00 Temperature Pulse Rate 56 L 54 L 64 Respiratory Rate 16 Blood Pressure 190/73 H 179/78 H Pulse Oximetry 97 07/25/18 16:45 07/25/18 17:00 07/25/18 17:53 Temperature Pulse Rate 64 75 Respiratory Rate Blood Pressure 161/67 H 137/65 Pulse Oximetry 07/25/18 19:00 07/25/18 20:00 07/25/18 21:00 Temperature 97.9 F Pulse Rate 67 62 60 Respiratory Rate 16 Blood Pressure 159/72 H Pulse Oximetry 97 07/25/18 22:00 07/25/18 23:00 07/26/18 00:00 Temperature 97.5 F L Pulse Rate 62 65 64 Respiratory Rate 16 Blood Pressure 111/51 L Pulse Oximetry 96 07/26/18 01:00 07/26/18 02:00 07/26/18 03:00 Temperature 98.3 F Pulse Rate 66 58 L 58 L Respiratory Rate 16 Blood Pressure 138/64 Pulse Oximetry 92 L 07/26/18 04:00 07/26/18 05:00 07/26/18 06:00 Temperature Pulse Rate 62 58 L 60 Respiratory Rate Blood Pressure Pulse Oximetry 07/26/18 07:00 07/26/18 08:00 07/26/18 09:00 Temperature 98.2 F Pulse Rate 58 L 62 58 L Respiratory Rate 18 Blood Pressure 189/75 H Pulse Oximetry 96 07/26/18 10:00 07/26/18 11:00 07/26/18 12:00 Temperature 98.3 F Pulse Rate 72 59 L 59 L Respiratory Rate 18 Blood Pressure 177/72 H Pulse Oximetry 97 Intake & Output 07/25/18 07/26/18 07/26/18 18:59 06:59 18:59 Intake Total 1080 / 1080 720 / 720 Output Total 200 / 200 350 / 350 Balance 880 / 880 370 / 370 Weight 60.5 kg Intake: Oral 1080 / 1080 720 / 720 Output: Urine 350 / 350 Urine/Stool Mix 200 / 200 Other: # Voids 4 Date of Last Bowel Movement 07/25/18 # Bowel Movements 1 Result Diagrams: 07/26/18 04:20 07/24/18 21:57 Laboratory Results: Laboratory Results - last 24 hr 07/25/18 07/25/18 07/25/18 16:49 20:55 23:20 WBC RBC Hgb Hct MCV MCH MCHC RDW Plt Count MPV POC Glucose 149 H 264 H 349 H 07/26/18 07/26/18 04:20 09:05 WBC 7.9 RBC 3.88 L Hgb 10.4 L Hct 31.1 L MCV 80.3 MCH 26.8 L MCHC 33.3 RDW 15.5 Plt Count 218 MPV 7.2 POC Glucose 342 H Medications: Active Medications Generic Name Dose Route Start Last Admin Trade Name Freq PRN Reason Stop Dose Admin Dextrose 50 ml 07/21/18 08:39 07/25/18 05:34 D50w Vial IV.PUSH 50 ml UNSCH PRN Administration PER HYPOGLYCEMIA PROTOCOL Hydralazine HCl 20 mg 07/25/18 15:44 07/25/18 16:44 Apresoline Inj IV.PUSH 20 mg Q4H PRN Administration SBP 160 mm Hg. or over. Sodium Chloride 500 mls @ 30 mls/hr 07/21/18 04:00 07/22/18 10:00 Ns Inj IV.SIG Not Given .Q10H MARCIA Diltiazem HCl 125 mg/ Sodium 125 mls @ 5 mls/hr 07/21/18 17:31 07/23/18 07:05 Chloride IV.CONT Infused TITRATE PRN Titration Per Protocol Protocol 5 MG/HR Insulin Aspart 0 unit 07/21/18 12:00 07/26/18 09:09 Novolog Insulin Correctional Sugar Inj SQ 7 unit ACHS MARCIA Administration Protocol Levothyroxine Sodium 75 mcg 07/21/18 06:00 07/26/18 05:12 Synthroid PO 75 mcg DAILY@0600 MARCIA Administration Losartan Potassium 50 mg 07/25/18 13:45 07/26/18 09:02 Cozaar PO 50 mg DAILY MARCIA Administration Metoprolol Succinate 25 mg 07/26/18 09:00 07/26/18 09:02 Toprol Xl PO Not Given DAILY MARCIA Sodium Chloride 2 ml 07/20/18 21:00 07/26/18 09:02 Ns Flush IV.FLUSH 2 ml BID MARCIA Administration Objective Remarks: GENERAL: Frail but not acutely ill SKIN: Warm and dry. HEAD: Normocephalic. EYES: No scleral icterus. No injection or drainage. NECK: Supple, trachea midline. No JVD or lymphadenopathy. LYMPHATIC: No adenopathy. CARDIOVASCULAR: Regular rate and rhythm without murmurs. RESPIRATORY: Breath sounds equal bilaterally. No accessory muscle use. GASTROINTESTINAL: Abdomen soft, non-tender, nondistended. EXTREMITIES: No cyanosis, or edema. MUSCULOSKELETAL: Mild muscle wasting NEUROLOGICAL: No obvious focal deficit. Awake, alert, and oriented x3. PSYCHIATRIC: Appropriate mood and affect; insight and judgment normal. Assessment/Plan - Plan Ms. Hardin is a pleasant 73-year-old female patient, currently hospitalized with acute gastrointestinal bleeding. Hematology was consulted for iron deficiency anemia with associated GI bleed. She has a history of squamous cell carcinoma to the right lateral tongue, status post definitive surgery with flap placed on 02/11/2018 at [facility]. She also has a history of atrial fibrillation, CAD, hypertension diabetes and TIAs. Plan: 1: the patient has no further bleeding. She has received both transfusions and IV iron. I will see her in 2-3 weeks time with a CBC and platelet count. I discussed this with the patient and . 2: She is presently in sinus rhythm. I spoke with Dr. Fields who is her meteorology instructor in the hospital. The patient has a follow-up appointment with Dr. Klein who is her meteorology instructor this . She will resume Xarelto. 3: Hopefully the polyp was a site of bleeding. It has been removed. Pathology is pending. 4: I contacted her primary care physician Dr. Gladys Smith by phone and reviewed with her the events of the hospitalization as she had referred her to me for anemia. 5: She will follow-up at [facility] for her cancer of the tongue.
--- NOTE | 2018-07-26 15:23 | US ---
EXAM DATE: 07/26/2018 12:00 AM EDT AGE/SEX: 73 years / Female INDICATIONS: Right arm swelling. CLINICAL DATA: This is the patient's initial encounter. Patient reports that signs and symptoms have been present for 3 days and indicates a pain score of 2/10. MEDICAL/SURGICAL HISTORY: Hypertension. Hypothyroidism. Atrial fibrillation. Anemia. Coronary artery disease. Glaucoma. Renal failure. Restless leg syndrome. Squamous cell carcinoma. TIA. . Card iac ablation. Tongue recontruction. COMPARISON: TLI, US ARM, RIGHT, 06/04/2018. . FINDINGS: The deep venous structures of the right arm are patent. Specifically, the jugular vein, espino bclavian vein, axillary vein and brachial vein are patent. The cephalic vein is patent. There is thrombosis of the superficial basilic vein. Other: None. CONCLUSION: 1. Basilic vein thrombosis. 2. No evidence of right upper extremity DVT. Electronically signed by: Luis A Aguilar MD 07/26/2018 3:22 PM EDT
[2018-07-26] MEDS: hydrALAZINE HCl Inj 20 MG/ML Vial IV.PUSH PRN (15:32)
[2018-07-26] MEDS ORDERED: Rivaroxaban 20 MG Tablet PO SCH (20:00)
[2018-07-26] MEDS ORDERED: Insulin Detemir Inj 1,000 UNIT/10 ML Vial SQ SCH (21:00)
[2018-07-27 05:45] LABS: Baso # (Auto) 0.1 th/mm3 (0.0-0.2); Baso % (Auto) 1.1 % (0.0-2.0); Eos # (Auto) 0.3 th/mm3 (0.0-0.4); Eos % (Auto) 3.5 % (0.0-4.0); Hematocrit 29.6 % (35.0-46.0); Hemoglobin 9.9 gm/dL (11.6-15.3); Lymph # (Auto) 1.4 th/mm3 (1.0-4.8); Lymph % (Auto) 17.7 % (9.0-44.0); Mean Corpuscular HGB Conc 33.4 % (32.0-36.0); Mean Corpuscular Hemoglobin 26.5 pg (27.0-34.0); Mean Corpuscular Volume 79.4 fL (80.0-100.0); Mean Platelet Volume 7.1 fL (7.0-11.0); Mono # (Auto) 1.1 th/mm3 (0.0-0.9); Neut # (Auto) 5.1 th/mm3 (1.8-7.7); Neut % (Auto) 63.7 % (16.0-70.0); Platelet Count 235 th/mm3 (150-450); Red Blood Count 3.73 mil/mm3 (4.00-5.30); Red Cell Distribution Width 15.8 % (11.6-17.2)
[2018-07-27] MEDS: Levothyroxine 75 MCG Tablet PO SCH (05:54)
[2018-07-27 06:20] LABS: Alanine Aminotransferase 43 U/L (10-53); Albumin 2.8 g/dL (3.4-5.0); Alkaline Phosphatase 145 U/L (45-117); Anion Gap 8 meq/L (5-15); Aspartate Aminotransferase 24 U/L (15-37); Blood Urea Nitrogen 19 mg/dL (7-18); Calcium 8.1 mg/dL (8.5-10.1); Carbon Dioxide 28.2 meq/L (21.0-32.0); Chloride 101 meq/L (98-107); Free T4 (Free Thyroxine) 1.17 ng/dL (0.76-1.46); Glomerular Filtration Rate 43 mL/min (>89); Magnesium 1.7 mg/dL (1.5-2.5); Phosphorus 1.8 mg/dL (2.5-4.9); Potassium 3.3 meq/L (3.5-5.1); Sodium 137 meq/L (136-145); Total Protein 6.4 g/dL (6.4-8.2)
[2018-07-27 06:33] LABS: Glucose,Random 31 mg/dL (74-106)
[2018-07-27] MEDS: Insulin NovoLOG Aspart Correctional Sugar Inj SQ SCH ×2 (09:04→13:56)
[2018-07-27] MEDS ORDERED: Magnesium Sulfate Inj 2 GM in Sodium Chlor 0.9% Inj 96 ML IV.SIG ONE (09:13)
--- NOTE | 2018-07-27 09:59 | P.PNIM ---
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 She presents to our emergency department today with complaints of fatigue and black tarry stools that have been ongoing for the past 1 week. The patient was seen by her oncologist Dr. Powers and sent to our emergency department for evaluation due to her black stools. As per documentation the patient had a colonoscopy in January 2018 which did not show any significant findings. She denies any fevers or chills, no chest pain, no diarrhea. 07-21 Follow up for GI bleed anemia, Atrial fibrillation. Patient was seen before she went to GI lab. Her heart rate was 120-160s. We pushed 5mg of IV metoprolol which controlled heart rate to 115 range. However, once patient went to GI lab, her heart rate again went up in the 150s range. Subsequently EGD was cancelled. I discussed with GI attending who recommended Cardiology consult and transferring patient to cardiac floor. Patient was started on Cardizem drip. 07-22 Follow up for GI bleed anemia, Atrial fibrillation. Attempted to see patient this afternoon. 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 Discussed with patient's . Went back to see patient. Patient is currently doing well. No acute concerns. Tolerating diet well. 07-23 Follow up for GI bleed anemia, Atrial fibrillation. Patient is currently doing well. Denies any chest pain, shortness of breath, fever or chills. She is scheduled for colonoscopy tomorrow. 07-24 Follow-up GI bleed/A. fib with RVR July 24, 2018-patient seen and examined, currently n.p.o. pending colonoscopy today. Denies any chest pain, heart palpitation. Heart rate in the high 40s. Denies any GI bleed. 07-25 Patient followed due to GI bleed and Atrial Fibrillation with RVR, 07/25: Seen in her bedroom, stable giving a bowel movement at this time, her relative in the room, discussed with nurse Miss Mann and Jody, she continue with Bradycardia as per Cardiology stopped Sotalol and re started on Metoprolol for rate control, as per GI specialist recommended to start liquid diet and advance as tolerated, PPIs, monitor for bleedings. increase activity as tolerated, no nausea, vomit or diarrhea. 07-26 TO RESTART LANTUS/LEVEMIR TODAY RESTART XARELTO TODAY AM LABS IF STABLE POSSIBLE DC IN NEXT 24 TO 48 HOURS DW RN AND PT AND CM BASILIC VEIN THROMBUS RIGHT UE NO DVT ALREADY ON XARELTO 07-27 WANTS TO GO HOME DW RN AND PT NO BLEEDING TOLERATING XARELTO DC TO HOME TODAY Physical Exam Vital signs: Vital Signs 07/26/18 10:00 07/26/18 11:00 07/26/18 12:00 Temperature 98.3 F Pulse Rate 72 59 L 59 L Respiratory Rate 18 Blood Pressure 177/72 H Pulse Oximetry 97 07/26/18 13:00 07/26/18 14:00 07/26/18 15:00 Temperature 98.3 F Pulse Rate 63 62 69 Respiratory Rate 18 Blood Pressure 171/74 H Pulse Oximetry 99 07/26/18 16:00 07/26/18 17:00 07/26/18 18:00 Temperature Pulse Rate 67 69 66 Respiratory Rate Blood Pressure Pulse Oximetry 07/26/18 20:00 07/26/18 21:00 07/26/18 22:00 Temperature 97.4 F L Pulse Rate 69 64 66 Respiratory Rate 18 Blood Pressure 155/70 H Pulse Oximetry 98 07/26/18 23:00 07/27/18 00:00 07/27/18 01:00 Temperature 97.6 F Pulse Rate 66 68 66 Respiratory Rate 18 Blood Pressure 125/59 L Pulse Oximetry 94 L 07/27/18 02:00 07/27/18 03:00 07/27/18 04:00 Temperature 97.8 F Pulse Rate 64 66 62 Respiratory Rate 18 Blood Pressure 160/77 H Pulse Oximetry 95 07/27/18 05:00 07/27/18 06:13 07/27/18 07:00 Temperature 97.7 F Pulse Rate 72 75 73 Respiratory Rate 17 Blood Pressure 151/70 H Pulse Oximetry 97 Intake & Output 07/26/18 07/27/18 07/27/18 18:59 06:59 18:59 Intake Total 720 / 720 240 / 240 Output Total 1050 / 1050 800 / 800 Balance -330 / -330 -560 / -560 Weight 61.5 kg Intake: Oral 720 / 720 240 / 240 Output: Urine 1050 / 1050 800 / 800 Other: # Voids 3 Date of Last Bowel Movement 07/25/18 # Bowel Movements 0 Narrative: GENERAL: NAD SKIN: Warm and dry. HEAD: Normocephalic. EYES: No scleral icterus. No injection or drainage. NECK: Supple, trachea midline. No JVD or lymphadenopathy. CARDIOVASCULAR: Irregular regular rate and rhythm without murmurs, gallops, or rubs. S1-S2 no S3 or S4 RESPIRATORY: Breath sounds equal bilaterally. No accessory muscle use. GASTROINTESTINAL: Abdomen soft, non-tender, nondistended. MUSCULOSKELETAL: No cyanosis, or edema. BACK: Nontender without obvious deformity. No CVA tenderness. Insight and judgment is good Mood and behavior is appropriate Results - Labs CBC & Chem 7: 07/27/18 03:49 07/27/18 03:49 Laboratory Results - last 24 hr 07/26/18 07/26/18 07/26/18 13:36 18:13 20:28 WBC RBC Hgb Hct MCV MCH MCHC RDW Plt Count MPV Neut % (Auto) Lymph % (Auto) [place] % (Auto) Eos % (Auto) Baso % (Auto) Neut # (Auto) Lymph # (Auto) [place] # (Auto) Eos # (Auto) Baso # (Auto) WBC Differential Differential Comment Sodium Potassium Chloride Carbon Dioxide Anion Gap BUN Creatinine Estimated GFR POC Glucose 266 H 213 H 261 H Random Glucose Calcium Phosphorus Magnesium Total Bilirubin AST ALT Alkaline Phosphatase Total Protein Albumin TSH Free T4 07/27/18 07/27/18 07/27/18 03:33 03:49 03:49 WBC 8.0 RBC 3.73 L Hgb 9.9 L Hct 29.6 L MCV 79.4 L MCH 26.5 L MCHC 33.4 RDW 15.8 Plt Count 235 MPV 7.1 Neut % (Auto) 63.7 Lymph % (Auto) 17.7 [place] % (Auto) 14.0 H Eos % (Auto) 3.5 Baso % (Auto) 1.1 Neut # (Auto) 5.1 Lymph # (Auto) 1.4 [place] # (Auto) 1.1 H Eos # (Auto) 0.3 Baso # (Auto) 0.1 WBC Differential . Differential Comment Auto diff final Sodium 137 Potassium 3.3 L Chloride 101 Carbon Dioxide 28.2 Anion Gap 8 BUN 19 H Creatinine 1.21 H Estimated GFR 43 L POC Glucose 42 L* Random Glucose 31 L* Calcium 8.1 L Phosphorus 1.8 L Magnesium 1.7 Total Bilirubin 0.6 AST 24 ALT 43 Alkaline Phosphatase 145 H Total Protein 6.4 Albumin 2.8 L TSH 1.350 Free T4 1.17 07/27/18 07/27/18 06:38 08:15 WBC RBC Hgb Hct MCV MCH MCHC RDW Plt Count MPV Neut % (Auto) Lymph % (Auto) [place] % (Auto) Eos % (Auto) Baso % (Auto) Neut # (Auto) Lymph # (Auto) [place] # (Auto) Eos # (Auto) Baso # (Auto) WBC Differential Differential Comment Sodium Potassium Chloride Carbon Dioxide Anion Gap BUN Creatinine Estimated GFR POC Glucose 108 109 Random Glucose Calcium Phosphorus Magnesium Total Bilirubin AST ALT Alkaline Phosphatase Total Protein Albumin TSH Free T4 - Imaging Impressions Venous Doppler Study 07/26/18 00:00 CONCLUSION: 1. Basilic vein thrombosis. 2. No evidence of right upper extremity DVT. - Procedures COLONOSCOPY: IMPRESSIONS: 1. A pedunculated polyp measuring 1.5 cm in size was found in the ascending colon; polypectomy was performed using snare cautery; bleeding at the site was controlled using hemoclips; injection was given to control bleeding. 1:10,000 Epinephrine solution; a tattoo was applied 2. Moderate diverticulosis was noted throughout the entire examined colon 3. Retroflexed views revealed internal hemorrhoids 4. Retroflexed views revealed small internal hemorrhoids 5. Was performed 6. Revealed no abnormalities of the rectum RECOMMENDATIONS: Await biopsy results. Biopsy results will not be ready for 7-10 days. If you don't hear from us in two weeks, call our office for results. RECALL: Colonoscopy, pending biopsy results Dae Waddell MD eSigned: Dae Waddell MD 07/24/2018 2:09 PM Assessment and Plan - Assessment (1) Acute GI bleeding Code(s): K92.2 - Gastrointestinal hemorrhage, unspecified Status: Acute (2) History of atrial fibrillation Code(s): Z86.79 - Personal history of other diseases of the circulatory system Status: Acute - Plan 73-year-old female with Acute GI blood loss anemia -EGD 07/22/2018 shows esophagitis in the distal esophagus. -Transfused a total of 3 units packed red blood cells since admission -NM bleeding scan shows no evidence of bleed. -Status post Colonoscopy found Polyp removed and treated bleeding post procedure As per GI specialist recommended to start liquid diet and advance as tolerated, PPIs, monitor for bleedings. increase activity as tolerated, no nausea, vomit or diarrhea. Atrial fibrillation with RVR -Cardiology following. recommended to stop Sotalol due to Bradycardia worsening and re started on Metoprolol 25 mg daily. -Oral anticoagulation on hold secondary to GI bleed. Resume when okay by GI -Follow with his primary civil engineering specialist Dr. Klein on discharge. Diabetes mellitus had some hypoglycemia on hold Levemir. continue sliding scale. Wants Levemir restarted Hypothyroidism - Continue Levothyroxine 75 mcg Daily. DVT prophylaxis: Chemical antiplatelet is contraindicated secondary to GI bleed WANTS TO GO HOME TODAY DW RN AND PT RESTARTED XARELTO Code Status: FULL CODE Discussed Condition With: RN AND PT AND CM Discharge Planning: DC TO HOME TODAY
--- NOTE | 2018-07-27 10:06 | P.DS ---
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 She presents to our emergency department today with complaints of fatigue and black tarry stools that have been ongoing for the past 1 week. The patient was seen by her oncologist Dr. Powers and sent to our emergency department for evaluation due to her black stools. As per documentation the patient had a colonoscopy in January 2018 which did not show any significant findings. She denies any fevers or chills, no chest pain, no diarrhea. 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 She presents to our emergency department today with complaints of fatigue and black tarry stools that have been ongoing for the past 1 week. The patient was seen by her oncologist Dr. Powers and sent to our emergency department for evaluation due to her black stools. As per documentation the patient had a colonoscopy in January 2018 which did not show any significant findings. She denies any fevers or chills, no chest pain, no diarrhea. 07-21 Follow up for GI bleed anemia, Atrial fibrillation. Patient was seen before she went to GI lab. Her heart rate was 120-160s. We pushed 5mg of IV metoprolol which controlled heart rate to 115 range. However, once patient went to GI lab, her heart rate again went up in the 150s range. Subsequently EGD was cancelled. I discussed with GI attending who recommended Cardiology consult and transferring patient to cardiac floor. Patient was started on Cardizem drip. 07-22 Follow up for GI bleed anemia, Atrial fibrillation. Attempted to see patient this afternoon. 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 Discussed with patient's . Went back to see patient. Patient is currently doing well. No acute concerns. Tolerating diet well. 10-19 Follow up for GI bleed anemia, Atrial fibrillation. Patient is currently doing well. Denies any chest pain, shortness of breath, fever or chills. She is scheduled for colonoscopy tomorrow. 07-24 Follow-up GI bleed/A. fib with RVR July 24, 2018-patient seen and examined, currently n.p.o. pending colonoscopy today. Denies any chest pain, heart palpitation. Heart rate in the high 40s. Denies any GI bleed. 07-25 Patient followed due to GI bleed and Atrial Fibrillation with RVR, 07/25: Seen in her bedroom, stable giving a bowel movement at this time, her relative in the room, discussed with nurse Miss Mann and Jody, she continue with Bradycardia as per Cardiology stopped Sotalol and re started on Metoprolol for rate control, as per GI specialist recommended to start liquid diet and advance as tolerated, PPIs, monitor for bleedings. increase activity as tolerated, no nausea, vomit or diarrhea. 07-26 TO RESTART LANTUS/LEVEMIR TODAY RESTART XARELTO TODAY AM LABS IF STABLE POSSIBLE DC IN NEXT 24 TO 48 HOURS DW RN AND PT AND CM BASILIC VEIN THROMBUS RIGHT UE NO DVT ALREADY ON XARELTO 07-27 WANTS TO GO HOME DW RN AND PT NO BLEEDING TOLERATING XARELTO DC TO HOME TODAY DS: Diagnosis - Discharge Diagnosis (1) Acute GI bleeding Status: Acute (2) History of atrial fibrillation Status: Acute (3) Anticoagulant long-term use Status: Acute (4) Symptomatic anemia Status: Acute DS: Medications - Discharge Medications Prescriptions: aspirin 81 mg PO DAILY #30 tab irbesartan 150 mg PO DAILY #30 tab levothyroxine 75 mcg PO DAILY #30 tab metoprolol succinate 25 mg PO DAILY #30 tab pantoprazole [Protonix] 40 mg PO BID #60 tab rivaroxaban [Xarelto] 20 mg PO Q24H #30 tab timolol 1 drp OPHTHALMIC (EYE) BID #1 bottle DS: Summary Hospital Course: This patient is a 73-year-old female with a diagnosis of atrial fibrillation on Xarelto, status post ablation x2, coronary artery disease status post stent placement, history of TIA, 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 She presents to our emergency department today with complaints of fatigue and black tarry stools that have been ongoing for the past 1 week. The patient was seen by her oncologist Dr. Powers and sent to our emergency department for evaluation due to her black stools. As per documentation the patient had a colonoscopy in January 2018 which did not show any significant findings. She denies any fevers or chills, no chest pain, no diarrhea. 10 Follow up for GI bleed anemia, Atrial fibrillation. Patient was seen before she went to GI lab. Her heart rate was 120-160s. We pushed 5mg of IV metoprolol which controlled heart rate to 115 range. However, once patient went to GI lab, her heart rate again went up in the 150s range. Subsequently EGD was cancelled. I discussed with GI attending who recommended Cardiology consult and transferring patient to cardiac floor. Patient was started on Cardizem drip. 07-22 Follow up for GI bleed anemia, Atrial fibrillation. Attempted to see patient this afternoon. 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 Discussed with patient's . Went back to see patient. Patient is currently doing well. No acute concerns. Tolerating diet well. 07-23 Follow up for GI bleed anemia, Atrial fibrillation. Patient is currently doing well. Denies any chest pain, shortness of breath, fever or chills. She is scheduled for colonoscopy tomorrow. 07-24 Follow-up GI bleed/A. fib with RVR July 24, 2018-patient seen and examined, currently n.p.o. pending colonoscopy today. Denies any chest pain, heart palpitation. Heart rate in the high 40s. Denies any GI bleed. 07-25 Patient followed due to GI bleed and Atrial Fibrillation with RVR, 07/25: Seen in her bedroom, stable giving a bowel movement at this time, her relative in the room, discussed with nurse Miss Cuellar, she continue with Bradycardia as per Cardiology stopped Sotalol and re started on Metoprolol for rate control, as per GI specialist recommended to start liquid diet and advance as tolerated, PPIs, monitor for bleedings. increase activity as tolerated, no nausea, vomit or diarrhea. 07-26 TO RESTART LANTUS/LEVEMIR TODAY RESTART XARELTO TODAY AM LABS IF STABLE POSSIBLE DC IN NEXT 24 TO 48 HOURS DW RN AND PT AND CM BASILIC VEIN THROMBUS RIGHT UE NO DVT ALREADY ON XARELTO 07-27 WANTS TO GO HOME DW RN AND PT NO BLEEDING TOLERATING XARELTO DC TO HOME TODAY - Time Spent with Patient Total time spent providing and/or coordinating discharge services: Greater than 30 minutes - Quality: VTE Deep Vein Thrombosis/Pulmonary Embolism Present on Admission: No Exam Vital signs: Vital Signs 07/26/18 10:00 07/26/18 11:00 07/26/18 12:00 Temperature 98.3 F Pulse Rate 72 59 L 59 L Respiratory Rate 18 Blood Pressure 177/72 H Pulse Oximetry 97 07/26/18 13:00 07/26/18 14:00 07/26/18 15:00 Temperature 98.3 F Pulse Rate 63 62 69 Respiratory Rate 18 Blood Pressure 171/74 H Pulse Oximetry 99 07/26/18 16:00 07/26/18 17:00 07/26/18 18:00 Temperature Pulse Rate 67 69 66 Respiratory Rate Blood Pressure Pulse Oximetry 07/26/18 20:00 07/26/18 21:00 07/26/18 22:00 Temperature 97.4 F L Pulse Rate 69 64 66 Respiratory Rate 18 Blood Pressure 155/70 H Pulse Oximetry 98 07/26/18 23:00 07/27/18 00:00 07/27/18 01:00 Temperature 97.6 F Pulse Rate 66 68 66 Respiratory Rate 18 Blood Pressure 125/59 L Pulse Oximetry 94 L 07/27/18 02:00 07/27/18 03:00 07/27/18 04:00 Temperature 97.8 F Pulse Rate 64 66 62 Respiratory Rate 18 Blood Pressure 160/77 H Pulse Oximetry 95 07/27/18 05:00 07/27/18 06:13 07/27/18 07:00 Temperature 97.7 F Pulse Rate 72 75 73 Respiratory Rate 17 Blood Pressure 151/70 H Pulse Oximetry 97 Intake & Output 07/26/18 07/27/18 07/27/18 18:59 06:59 18:59 Intake Total 720 / 720 240 / 240 Output Total 1050 / 1050 800 / 800 Balance -330 / -330 -560 / -560 Weight 61.5 kg Intake: Oral 720 / 720 240 / 240 Output: Urine 1050 / 1050 800 / 800 Other: # Voids 3 Date of Last Bowel Movement 07/25/18 # Bowel Movements 0 Narrative: GENERAL: NAD SKIN: Warm and dry. HEAD: Normocephalic. EYES: No scleral icterus. No injection or drainage. NECK: Supple, trachea midline. No JVD or lymphadenopathy. CARDIOVASCULAR: Irregular regular rate and rhythm without murmurs, gallops, or rubs. S1-S2 no S3 or S4 RESPIRATORY: Breath sounds equal bilaterally. No accessory muscle use. GASTROINTESTINAL: Abdomen soft, non-tender, nondistended. MUSCULOSKELETAL: No cyanosis, or edema. BACK: Nontender without obvious deformity. No CVA tenderness. Insight and judgment is good Mood and behavior is appropriate Results Procedures completed during hospitalization: COLONOSCOPY: IMPRESSIONS: 1. A pedunculated polyp measuring 1.5 cm in size was found in the ascending colon; polypectomy was performed using snare cautery; bleeding at the site was controlled using hemoclips; injection was given to control bleeding. 1:10,000 Epinephrine solution; a tattoo was applied 2. Moderate diverticulosis was noted throughout the entire examined colon 3. Retroflexed views revealed internal hemorrhoids 4. Retroflexed views revealed small internal hemorrhoids 5. Was performed 6. Revealed no abnormalities of the rectum RECOMMENDATIONS: Await biopsy results. Biopsy results will not be ready for 7-10 days. If you don't hear from us in two weeks, call our office for results. RECALL: Colonoscopy, pending biopsy results Dae Waddell MD eSigned: Dae Waddell MD 07/24/2018 2:09 PM Completed studies during hospitalization: Laboratory Results WBC 8.0 th/mm3 (4.0-11.0) 07/27/18 03:49 RBC 3.73 mil/mm3 (4.00-5.30) L 07/27/18 03:49 Hgb 9.9 gm/dL (11.6-15.3) L 07/27/18 03:49 Hct 29.6 % (35.0-46.0) L 07/27/18 03:49 MCV 79.4 fL (80.0-100.0) L 07/27/18 03:49 MCH 26.5 pg (27.0-34.0) L 07/27/18 03:49 MCHC 33.4 % (32.0-36.0) 07/27/18 03:49 RDW 15.8 % (11.6-17.2) 07/27/18 03:49 Plt Count 235 th/mm3 (150-450) 07/27/18 03:49 MPV 7.1 fL (7.0-11.0) 07/27/18 03:49 Prelim Diff (Auto) Slide review pending 07/20/18 14:20 Neut % (Auto) 63.7 % (16.0-70.0) 07/27/18 03:49 Lymph % (Auto) 17.7 % (9.0-44.0) 07/27/18 03:49 Placer % (Auto) 14.0 % (0.0-8.0) H 07/27/18 03:49 Eos % (Auto) 3.5 % (0.0-4.0) 07/27/18 03:49 Baso % (Auto) 1.1 % (0.0-2.0) 07/27/18 03:49 Neut # (Auto) 5.1 th/mm3 (1.8-7.7) 07/27/18 03:49 Lymph # (Auto) 1.4 th/mm3 (1.0-4.8) 07/27/18 03:49 Placer # (Auto) 1.1 th/mm3 (0.0-0.9) H 07/27/18 03:49 Eos # (Auto) 0.3 th/mm3 (0.0-0.4) 07/27/18 03:49 Baso # (Auto) 0.1 th/mm3 (0.0-0.2) 07/27/18 03:49 WBC Differential . 07/27/18 03:49 Diff Scan Auto diff confirmed 07/20/18 14:20 Differential Comment Auto diff final 07/27/18 03:49 Platelet Estimate Normal (Normal) 07/20/18 14:20 Platelet Morphology Normal (Normal) 07/20/18 14:20 Ovalocytes 1+ (None) H 07/20/18 14:20 Acanthocytes (Spur) 1+ (None) H 07/20/18 14:20 Keratocytes Occ (None) H 07/20/18 14:20 PT 11.6 sec (9.8-11.6) 07/20/18 14:20 INR 1.1 Ratio 07/20/18 14:20 APTT 32.1 sec (24.3-30.1) H 07/20/18 14:20 Sodium 137 meq/L (136-145) 07/27/18 03:49 Potassium 3.3 meq/L (3.5-5.1) L 07/27/18 03:49 Chloride 101 meq/L (98-107) 07/27/18 03:49 Carbon Dioxide 28.2 meq/L (21.0-32.0) 07/27/18 03:49 Anion Gap 8 meq/L (5-15) 07/27/18 03:49 BUN 19 mg/dL (7-18) H 07/27/18 03:49 Creatinine 1.21 mg/dL (0.50-1.00) H 07/27/18 03:49 Estimated GFR 43 mL/min (>89) L 07/27/18 03:49 POC Glucose 109 mg/dl (68-110) 07/27/18 08:15 Random Glucose 31 mg/dL (74-106) L* 07/27/18 03:49 Calcium 8.1 mg/dL (8.5-10.1) L 07/27/18 03:49 Phosphorus 1.8 mg/dL (2.5-4.9) L 07/27/18 03:49 Magnesium 1.7 mg/dL (1.5-2.5) 07/27/18 03:49 Iron 16 mcg/dL (50-170) L 07/20/18 14:20 TIBC 463 mcg/dL (250-450) H 07/20/18 14:20 % Saturation 3.5 % (20-50) L 07/20/18 14:20 Total Bilirubin 0.6 mg/dL (0.2-1.0) 07/27/18 03:49 AST 24 U/L (15-37) 07/27/18 03:49 ALT 43 U/L (10-53) 07/27/18 03:49 Alkaline Phosphatase 145 U/L (45-117) H 07/27/18 03:49 B-Natriuretic Peptide 1636 pg/mL (0-100) H 07/24/18 21:57 Total Protein 6.4 g/dL (6.4-8.2) 07/27/18 03:49 Albumin 2.8 g/dL (3.4-5.0) L 07/27/18 03:49 TSH 1.350 uIU/mL (0.358-3.740) 07/27/18 03:49 Free T4 1.17 ng/dL (0.76-1.46) 07/27/18 03:49 Urine Color Straw (Yellw/Straw) 07/20/18 14:23 Urine Clarity Clear (Clear) 07/20/18 14:23 Urine pH 5.0 (5.0-8.5) 07/20/18 14:23 Ur Specific [place] 1.008 (1.002-1.035) 07/20/18 14:23 Urine Protein Negative mg/dL (Neg-Trace) 07/20/18 14:23 Urine Glucose (UA) Negative mg/dL (Negative) 07/20/18 14:23 Urine Ketones Negative mg/dL (Negative) 07/20/18 14:23 Urine Occult Blood Negative (Negative) 07/20/18 14:23 Urine Nitrate Negative (Negative) 07/20/18 14:23 Urine Bilirubin Negative (Negative) 07/20/18 14:23 Urine Urobilinogen Less than 2 mg/dL (Less than 2) 07/20/18 14:23 Ur Leukocyte Esterase Negative (Negative) 07/20/18 14:23 Urine RBC 1 /hpf (0-3) 07/20/18 14:23 Urine WBC Less than 1 /hpf (0-5) 07/20/18 14:23 Ur Squamous Epith Cells <1 /hpf (0-5) 07/20/18 14:23 Urine Mucus Few /lpf (Occasional) H 07/20/18 14:23 Micro UA Comment Culture not ind 07/20/18 14:23 Ur Microscopic Review Not Reportable 07/20/18 14:23 Urine Culture Comments Culture not ind 07/20/18 14:23 Blood Type B Positive 07/20/18 14:20 Blood Type Recheck Required 07/20/18 14:20 Antibody Screen Negative 07/20/18 14:20 MTS Gel Crossmatch See Detail 07/22/18 13:38 Bld Prod Order Comment Cancelled 07/22/18 13:38 Impressions GI Bleed Scan Nuclear Medicine 07/22/18 00:00 CONCLUSION: 1. No episodes of active GI bleeding observed. Abdomen/Pelvis CT 07/23/18 00:00 CONCLUSION: 1. Mild to moderate bilateral pleural effusions, right greater than left with basilar atelectasis. 2. Mild ascites and anasarca. No bowel obstruction or free air. Extensive atherosclerotic disease in the aorta and branches without aneurysm Chest X-Ray 07/24/18 00:00 CONCLUSION: 1. Bibasilar consolidation and small pleural effusions. 2. Cardiomegaly Venous Doppler Study 07/26/18 00:00 CONCLUSION: 1. Basilic vein thrombosis. 2. No evidence of right upper extremity DVT. Pending studies at discharge: Pending at discharge 07/24/18 07:35 Surgical [PTH] Routine Labs on day of discharge: Labs from last 24 hours 07/27/18 07/27/18 07/27/18 08:15 06:38 03:49 WBC RBC Hgb Hct MCV MCH MCHC RDW Plt Count MPV Neut % (Auto) Lymph % (Auto) Placer % (Auto) Eos % (Auto) Baso % (Auto) Neut # (Auto) Lymph # (Auto) Placer # (Auto) Eos # (Auto) Baso # (Auto) WBC Differential Differential Comment Sodium 137 Potassium 3.3 L Chloride 101 Carbon Dioxide 28.2 Anion Gap 8 BUN 19 H Creatinine 1.21 H Estimated GFR 43 L POC Glucose 109 108 Random Glucose 31 L* Hemoglobin A1c Calcium 8.1 L Phosphorus 1.8 L Magnesium 1.7 Total Bilirubin 0.6 AST 24 ALT 43 Alkaline Phosphatase 145 H Total Protein 6.4 Albumin 2.8 L TSH 1.350 Free T4 1.17 07/27/18 07/27/18 07/27/18 03:49 03:49 03:33 WBC 8.0 RBC 3.73 L Hgb 9.9 L Hct 29.6 L MCV 79.4 L MCH 26.5 L MCHC 33.4 RDW 15.8 Plt Count 235 MPV 7.1 Neut % (Auto) 63.7 Lymph % (Auto) 17.7 Placer % (Auto) 14.0 H Eos % (Auto) 3.5 Baso % (Auto) 1.1 Neut # (Auto) 5.1 Lymph # (Auto) 1.4 Placer # (Auto) 1.1 H Eos # (Auto) 0.3 Baso # (Auto) 0.1 WBC Differential . Differential Comment Auto diff final Sodium Potassium Chloride Carbon Dioxide Anion Gap BUN Creatinine Estimated GFR POC Glucose 42 L* Random Glucose Hemoglobin A1c Pending Calcium Phosphorus Magnesium Total Bilirubin AST ALT Alkaline Phosphatase Total Protein Albumin TSH Free T4 07/26/18 07/26/18 07/26/18 20:28 18:13 13:36 WBC RBC Hgb Hct MCV MCH MCHC RDW Plt Count MPV Neut % (Auto) Lymph % (Auto) Placer % (Auto) Eos % (Auto) Baso % (Auto) Neut # (Auto) Lymph # (Auto) Placer # (Auto) Eos # (Auto) Baso # (Auto) WBC Differential Differential Comment Sodium Potassium Chloride Carbon Dioxide Anion Gap BUN Creatinine Estimated GFR POC Glucose 261 H 213 H 266 H Random Glucose Hemoglobin A1c Calcium Phosphorus Magnesium Total Bilirubin AST ALT Alkaline Phosphatase Total Protein Albumin TSH Free T4 - Impressions ITS Impressions GI Bleed Scan Nuclear Medicine 07/22/18 00:00 CONCLUSION: 1. No episodes of active GI bleeding observed. Abdomen/Pelvis CT 07/23/18 00:00 CONCLUSION: 1. Mild to moderate bilateral pleural effusions, right greater than left with basilar atelectasis. 2. Mild ascites and anasarca. No bowel obstruction or free air. Extensive atherosclerotic disease in the aorta and branches without aneurysm Chest X-Ray 07/24/18 00:00 CONCLUSION: 1. Bibasilar consolidation and small pleural effusions. 2. Cardiomegaly Venous Doppler Study 07/26/18 00:00 CONCLUSION: 1. Basilic vein thrombosis. 2. No evidence of right upper extremity DVT. Discharge Plan - Discharge Disposition Patient Disposition: Discharge Home - Discharge Condition Condition: Stable - Discharge Order Discharge Orders: Discharge Order (Routine); Ordered 07/27/18 Ordered By: Matthew Baker - Discharge Details Anticipated Discharge Date: 07/27/18 Discharge Comment: DC TO HOME TODAY - Physicians Team Primary Care Provider: Esther Smith Attending Provider: Matthew Baker Other Providers: Kevon Powers MD ; Olivia Diamond MD ; Gabriele Heredia MD
[2018-07-27 11:35] VITALS: BP 174/79; RESP 18; TEMP 97.9; O2SAT 99
[2018-07-27 12:03] VITALS: PULSE 64
--- NOTE | 2018-07-27 14:02 | P.PNCA ---
Subjective Interval history: Patient denies any chest pain, pressure, palpitations, dizziness, edema or shortness of breath. Patient states that she feels much better Medications and Allergies Allergies Allergy/AdvReac Type Severity Reaction Status Date / Time amlodipine Allergy Unknown Ankle Verified 07/20/18 14:15 swelling morphine Allergy Unknown Vomiting Verified 07/20/18 14:15 Sulfa (Sulfonamide Allergy Unknown Stomach Verified 07/20/18 14:15 Antibiotics) upset digoxin Allergy Bradycardia Verified 07/20/18 14:19 dronedarone [From Multaq] Allergy Weakness Verified 07/20/18 14:19 furosemide [From Lasix] Allergy Weakness Verified 07/20/18 14:19 Iodinated Contrast- Oral and Allergy Itching Verified 07/20/18 14:19 IV Dye [Contrast] levofloxacin Allergy Joint Pain Verified 07/20/18 14:19 ciprofloxacin [From Cipro] AdvReac Nausea Verified 07/20/18 14:19 Home Medications Medication Instructions Recorded Confirmed Type insulin glargine [Lantus U-100 10 unit SUBCUT DAILY 07/20/18 07/20/18 History Insulin] insulin lispro [Humalog U-100 1 sliding scale dose SUBCUT UD 07/20/18 07/20/18 History Insulin] Active Medications: Active Medications Dextrose (D50w Vial) 50 ml IV.PUSH UNSCH PRN PRN Reason: PER HYPOGLYCEMIA PROTOCOL Last Admin: 07/25/18 05:34 Dose: 50 ml Glucagon (Glucagon Inj) 1 mg OTHER PRN PRN PRN Reason: for Hypoglycemia Protocol Hydralazine HCl (Apresoline Inj) 20 mg IV.PUSH Q4H PRN PRN Reason: SBP 160 mm Hg. or over. Last Admin: 07/26/18 15:32 Dose: 20 mg Pantoprazole Sodium 80 mg/ (Sodium Chloride) 100 mls @ 10 mls/hr IV.CONT CONT MARCIA Sodium Chloride (Ns Inj) 500 mls @ 30 mls/hr IV.SIG .Q10H MARCIA Last Admin: 07/22/18 10:00 Dose: Not Given Diltiazem HCl 125 mg/ Sodium (Chloride) 125 mls @ 5 mls/hr IV.CONT TITRATE PRN ; Protocol PRN Reason: Per Protocol Last Titration: 07/23/18 07:05 Dose: Infused Insulin Aspart (Novolog Insulin Correctional Sugar Inj) 0 unit SQ ACHS MARCIA; Protocol Last Admin: 07/27/18 13:56 Dose: Not Given Insulin Detemir (Levemir Inj) 10 unit SQ HS [facility] Last Admin: 07/26/18 20:39 Dose: 10 unit Levothyroxine Sodium (Synthroid) 75 mcg PO DAILY@0600 [facility] Last Admin: 07/27/18 05:54 Dose: 75 mcg Losartan Potassium (Cozaar) 50 mg PO DAILY [facility] Last Admin: 07/27/18 09:04 Dose: 50 mg Metoprolol Succinate (Toprol Xl) 25 mg PO DAILY [facility] Last Admin: 07/27/18 09:03 Dose: 25 mg Miscellaneous (Pill Splitter) 1 each OTHER [facility] Rivaroxaban (Xarelto) 20 mg PO Q24H [facility] Last Admin: 07/26/18 20:25 Dose: 20 mg Sodium Chloride (Ns Flush) 2 ml IV.FLUSH BID [facility] Last Admin: 07/27/18 09:04 Dose: 2 ml Sodium Chloride (Ns Flush) 2 ml IV.FLUSH PRN PRN PRN Reason: FLUSH AFTER USING IV ACCESS Physical Exam Vital signs: Vital Signs 07/26/18 14:00 07/26/18 15:00 07/26/18 16:00 Temperature 98.3 F Pulse Rate 62 69 67 Respiratory Rate 18 Blood Pressure 171/74 H Pulse Oximetry 99 07/26/18 17:00 07/26/18 18:00 07/26/18 20:00 Temperature 97.4 F L Pulse Rate 69 66 69 Respiratory Rate 18 Blood Pressure 155/70 H Pulse Oximetry 98 07/26/18 21:00 07/26/18 22:00 07/26/18 23:00 Temperature Pulse Rate 64 66 66 Respiratory Rate Blood Pressure Pulse Oximetry 07/27/18 00:00 07/27/18 01:00 07/27/18 02:00 Temperature 97.6 F Pulse Rate 68 66 64 Respiratory Rate 18 Blood Pressure 125/59 L Pulse Oximetry 94 L 07/27/18 03:00 07/27/18 04:00 07/27/18 05:00 Temperature 97.8 F Pulse Rate 66 62 72 Respiratory Rate 18 Blood Pressure 160/77 H Pulse Oximetry 95 07/27/18 06:13 07/27/18 07:00 07/27/18 08:00 Temperature 97.7 F Pulse Rate 75 69 70 Respiratory Rate 17 Blood Pressure 151/70 H Pulse Oximetry 97 07/27/18 09:00 07/27/18 10:00 07/27/18 11:00 Temperature 97.9 F Pulse Rate 78 68 67 Respiratory Rate 18 Blood Pressure 174/79 H Pulse Oximetry 99 07/27/18 12:00 07/27/18 13:00 Temperature Pulse Rate 64 64 Respiratory Rate Blood Pressure Pulse Oximetry Intake & Output 07/26/18 07/27/18 07/27/18 18:59 06:59 18:59 Intake Total 720 / 720 240 / 240 Output Total 1050 / 1050 800 / 800 Balance -330 / -330 -560 / -560 Weight 61.5 kg Intake: Oral 720 / 720 240 / 240 Output: Urine 1050 / 1050 800 / 800 Other: # Voids 3 Date of Last Bowel Movement 07/25/18 # Bowel Movements 0 Narrative: GENERAL: This is a well-nourished, well-developed patient, in no apparent distress. Patient speaks in clear complete sentences. Patient is pleasant. HEENT: Head is atraumatic and normocephalic. Neck is supple without lymphadenopathy and trachea is midline. No JVD or carotid bruits. CARDIOVASCULAR: Atrial fibrillation controlled without murmurs, gallops, or rubs. RESPIRATORY: Clear to auscultation. Breath sounds equal bilaterally. No wheezes , rales, or rhonchi. Chest wall is nontender. No use of accessory muscles. GASTROINTESTINAL: Abdomen is nontender, nondistended. Abdomen soft. No obvious pulsatile mass or bruit. No CVA tenderness. Strong femoral pulses bilaterally. Normal bowel sounds in all quadrants. MUSCULOSKELETAL: Patient is moving upper and lower extremities freely. No calf tenderness or edema, no Homans sign. Strong pulses in upper and lower extremities. NEUROLOGICAL: Patient is alert and oriented. Cranial nerves 2-12 are grossly intact. No focal deficits and speech is clear. SKIN: No rash and turgor is normal. Results 07/27/18 03:49 07/27/18 03:49 Cardiac Enzymes 07/27/18 Range/Units 03:49 AST 24 (15-37) U/L CBC 07/26/18 07/27/18 Range/Units 04:20 03:49 WBC 7.9 8.0 (4.0-11.0) th/mm3 RBC 3.88 L 3.73 L (4.00-5.30) mil/mm3 Hgb 10.4 L 9.9 L (11.6-15.3) gm/dL Hct 31.1 L 29.6 L (35.0-46.0) % Plt Count 218 235 (150-450) th/mm3 Neut # (Auto) 5.1 (1.8-7.7) th/mm3 Lymph # (Auto) 1.4 (1.0-4.8) th/mm3 Dare # (Auto) 1.1 H (0.0-0.9) th/mm3 Eos # (Auto) 0.3 (0.0-0.4) th/mm3 Baso # (Auto) 0.1 (0.0-0.2) th/mm3 Comprehensive Metabolic Panel 07/27/18 Range/Units 03:49 Sodium 137 (136-145) meq/L Potassium 3.3 L (3.5-5.1) meq/L Chloride 101 (98-107) meq/L Carbon Dioxide 28.2 (21.0-32.0) meq/L BUN 19 H (7-18) mg/dL Creatinine 1.21 H (0.50-1.00) mg/dL Calcium 8.1 L (8.5-10.1) mg/dL AST 24 (15-37) U/L ALT 43 (10-53) U/L Alkaline Phosphatase 145 H (45-117) U/L Total Protein 6.4 (6.4-8.2) g/dL Albumin 2.8 L (3.4-5.0) g/dL Intake and Output 07/26/18 07/27/18 07/27/18 22:59 06:59 14:59 Intake Total 720 / 720 240 / 240 Output Total 1050 / 1050 800 / 800 Balance -330 / -330 -560 / -560 Intake: Oral 720 / 720 240 / 240 Output: Urine 1050 / 1050 800 / 800 Other: # Voids 3 Date of Last Bowel Movement 07/25/18 07/25/18 # Bowel Movements 0 Weight 61.5 kg - Imaging and Cardiology Imaging: Impressions Venous Doppler Study 07/26/18 00:00 CONCLUSION: 1. Basilic vein thrombosis. 2. No evidence of right upper extremity DVT. 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 She will likely need another ablation with Dr. Klein in the future. Continue Xarelto 20mg QD for anticoagulation. Patient cleared for discharge from cardiac standpoint. Patient to follow-up with her primary cardiovascular physician assistant, Dr. Klein, later this week as scheduled. Patient was seen and evaluated by Dr. Heredia who participated in care, management and decision-making. - Attending Attestation Patient seen and examined. I reviewed and agree with the evaluation and plan as presented. No recurrent a fib. Continue current program including anticoagulation. DC home. F/u w Dr. Klein.
[2018-07-27 17:00] LABS: Hemoglobin A1c 7.3 % (4.3-6.0)
== END 2018-07-27 14:00 | disposition home or self-care (01) ==
LOC: NEPC 13:08 → NEDA 15:59 → N07 18:10 → HCIS 07-21 16:10 → HCPC 07-21 16:46
PROVIDERS: ADMIT Hospitalist; ATTEND Hospitalist
PROC: PANENDO (2018-07-22 09:31)
PROC: COLONOS (2018-07-24 12:50)